=== PATIENT | male | born 1970 | race Caucasian/White ===

== ENCOUNTER 2023-05-12 12:05 | Inpatient (IN) | payer MEDICAID, SELFPAY ==
--- NOTE | ~2023-05-12 | US_ITS ---
Paracentesis INDICATIONS: Recurrent ascites After informed and written consent was obtained an official timeout was performed immediately prior to the procedure. PROCEDURE: Initial ultrasound surveillance of the abdomen demonstrated a large amount of fluid throughout the abdomen. There was a large pocket of fluid in the right upper quadrant. The skin was prepped and draped in usual fashion in this area. 1% Xylocaine was used for local anesthetic. A 5 Kinyarwanda Yueh catheter was placed into the fluid collection and 7.7 L of clear yellow fluid was drained. The needle was removed and manual pressure held. US/US paracentesis abd w/image IMPRESSION: Paracentesis with 7.7 L of fluid drained
--- NOTE | ~2023-05-12 | US_ITS ---
EXAMINATION: US SCROTUM CLINICAL INFORMATION: Testicular swelling. COMPARISON: None available. TECHNIQUE: A sonogram of the scrotum was performed assessing gottlieb-scale appearance and color Doppler flow. Spectral Doppler analysis of the arterial and venous flow were performed in the testes bilaterally. FINDINGS: Significant soft tissue thickening, swelling and edema limiting evaluation. The right testicle measures approximately 3.6 x 2.5 x 2.8 cm 13 mL. The left testicle measures approximately 2.9 x 2.1 x 2 cm, 6.4 mL. A few hyperechoic foci noted in the right testicle are in favored to represent microlithiasis. Flow to both testicles appears slightly decreased, although as before, this is most likely related with technique limitations in view of significant overlying soft tissue thickening. The epididymal heads were not well seen. There is a large right epididymal head cyst measuring approximately 7.2 x 13 x 7.4 cm with thickened davila and peripheral hyperemia. There is a left-sided inguinal hernia containing fluid. US/US scrotum doppler IMPRESSION: 1. Significant soft tissue thickening, swelling and edema. Recommend clinical correlation for cellulitis. 2. Flow to both testicles appears decreased, however this is likely related with limitations in technique in the setting of extensive soft tissue thickening. A short-term follow-up examination is recommended. 3. Large right epididymal head cyst with thickened davila and surrounding hyperemia, superimposed infection is not excluded. Close attention on follow-up is recommended. 4. Left inguinal hernia containing fluid.
--- NOTE | ~2023-05-12 | US_ITS ---
EXAMINATION: US ABDOMEN LIMITED CLINICAL INFORMATION: Portal hypertension. COMPARISON: CT abdomen 05/12/2023 TECHNIQUE: Real-time imaging of the right upper quadrant abdominal viscera. Color and spectral Doppler of the hepatic vessels was obtained. FINDINGS: PANCREAS: Obscured by bowel gas. LIVER: Nodular hepatic contour suggestive of cirrhosis. Increased hepatic echogenicity which can be seen in the setting of hepatic steatosis or underlying liver disease. No focal hepatic lesion. There is no intrahepatic biliary duct dilatation seen. GALLBLADDER: Gallbladder wall thickening which can be seen in the setting of underlying liver disease. Sludge is noted within the gallbladder. Negative sonographic Weldon's sign. The gallbladder is physiologically distended without evidence of stones, polyps, or pericholecystic fluid. COMMON BILE DUCT: Normal in caliber measuring 0.6 cm in diameter. RIGHT KIDNEY: Normal. No hydronephrosis. No renal calculi or focal parenchymal lesions. The kidney measures 12.1 cm in maximum dimension. FREE FLUID: Large ascites. VESSELS: There is nonocclusive thrombus in the main portal vein. There is hepatopedal flow in the portal vein. A recannulized periumbilical vein is noted. Hepatic arterial velocities are normal showing 69 cm/s, with some spectral broadening which may be within physiologic range of normal. The right and left hepatic arteries were not seen. Hepatic veins are patent with normal waveforms. The IVC is patent with normal waveforms. US/US duplex arterial venous comp IMPRESSION: 1. Cirrhotic morphology of the liver with large ascites. No discrete liver lesion. 2. Nonocclusive thrombus is noted in the main portal vein. There is hepatopedal flow in the portal vein. 3. Gallbladder wall thickening which can be seen in the setting of underlying liver disease. Sludge is noted within the gallbladder. No lithiasis or sonographic tenderness to suggest acute cholecystitis. 4. Sequelae of portal hypertension including large ascites and a recannulized periumbilical vein. 5. Pancreas was obscured by bowel gas. 6. Technically limited exam as above detailed with some vessels not identified.
--- NOTE | ~2023-05-12 | XR_ITS ---
EXAMINATION: XR CHEST CLINICAL INFORMATION: Shortness of breath. COMPARISON: Chest radiograph 09/01/2017. TECHNIQUE: Frontal view of the chest was obtained. FINDINGS: Stable prominence of the cardiomediastinal silhouette. Unchanged chronic asymmetric elevation of the right hemidiaphragm. Similar degree of mild diffuse nonspecific interstitial thickening. No new focal airspace opacity, pleural effusion or pneumothorax. No acute osseous findings. The visualized upper abdomen is within normal limits. XR/XR chest 1V IMPRESSION: 1. No acute cardiopulmonary findings. 2. Similar degree of mild nonspecific chronic interstitial thickening.
--- NOTE | ~2023-05-12 | US_ITS ---
EXAMINATION: US SCROTUM CLINICAL INFORMATION: Testicular swelling. COMPARISON: None available. TECHNIQUE: A sonogram of the scrotum was performed assessing gottlieb-scale appearance and color Doppler flow. Spectral Doppler analysis of the arterial and venous flow were performed in the testes bilaterally. FINDINGS: Significant soft tissue thickening, swelling and edema limiting evaluation. The right testicle measures approximately 3.6 x 2.5 x 2.8 cm 13 mL. The left testicle measures approximately 2.9 x 2.1 x 2 cm, 6.4 mL. A few hyperechoic foci noted in the right testicle are in favored to represent microlithiasis. Flow to both testicles appears slightly decreased, although as before, this is most likely related with technique limitations in view of significant overlying soft tissue thickening. The epididymal heads were not well seen. There is a large right epididymal head cyst measuring approximately 7.2 x 13 x 7.4 cm with thickened davila and peripheral hyperemia. There is a left-sided inguinal hernia containing fluid. US/US scrotum IMPRESSION: 1. Significant soft tissue thickening, swelling and edema. Recommend clinical correlation for cellulitis. 2. Flow to both testicles appears decreased, however this is likely related with limitations in technique in the setting of extensive soft tissue thickening. A short-term follow-up examination is recommended. 3. Large right epididymal head cyst with thickened davila and surrounding hyperemia, superimposed infection is not excluded. Close attention on follow-up is recommended. 4. Left inguinal hernia containing fluid.
--- NOTE | ~2023-05-12 | CT_ITS ---
EXAMINATION: CT abdomen pelvis wo IV con CLINICAL INFORMATION: Reason for Exam abdomen swelling COMPARISON: No prior CT available for comparison. TECHNIQUE: Multidetector volumetric imaging was performed from the superior aspect of the liver through the pubic symphysis a noncontrasted study. Sagittal and coronal reformatted images were obtained on the technologist's workstation. This CT examination was performed using dose optimization techniques as appropriate, variously including the following: *Automated exposure control *Adjustment of mA and/or kV according to patient size (this includes techniques or standardized protocols for targeted exams where dose is matched to indication/reason for exam; i.e. extremities or head) *Use of iterative reconstruction technique DLP: 2092 mGy-cm FINDINGS: LOWER THORAX: Included lung bases are clear. HEPATOBILIARY: Evaluation of the liver is limited due to lack of contrast, heterogeneous matrix of the liver with nodular surface, this is most commonly indicative of liver cirrhosis. GALLBLADDER: Gallbladder unremarkable. SPLEEN: Spleen is enlarged 20 x 11 cm. PANCREAS: No focal mass or ductal dilatation. STOMACH AND GASTROINTESTINAL TRACT: Stomach is grossly unremarkable. There is no bowel distention or thickening. Appendix not visualized obscured by abdominal fluid ascites. ADRENALS: No adrenal nodules. KIDNEYS/URETERS: No hydronephrosis, stones or solid mass lesions. URINARY BLADDER: Urinary bladder grossly unremarkable. PELVIC VISCERA: There are bilateral inguinal hernias, the left hernia containing loops of bowel. No evidence of obstruction. The right containing a portion of the cecum. PERITONEUM: Large of amount of free fluid in the abdomen ascites. No free air. LYMPH NODES: There are enlarged bilateral inguinal lymph nodes uncertain etiology. There are enlarged retroperitoneal and pelvic lymph nodes. VASCULAR:There are dilatation of the portal venous system along with varices around the splenic hilum, gastroesophageal junction and periumbilical, suggesting portal hypertension and portosystemic shunting. BONES, ABDOMINAL WALL AND SOFT TISSUES: There is a mesh anterior abdominal wall hernia repair. Diffuse subcutaneous edema anasarca. Fluid along the inguinal canal into the testicles hydroceles. CT/CT abdomen pelvis wo IV con IMPRESSION: * Large amount of abdominal ascites. * Bilateral inguinal hernias, both containing loops of bowel, no evidence of obstruction. * Heterogeneous liver with nodular surface, suggesting liver cirrhosis. * Splenomegaly. * Dilated portal venous system along with varices around the splenic hilum, gastroesophageal junction and periumbilical, suggesting portal hypertension and portosystemic shunting. * Diffuse subcutaneous edema, Anasarca. * Fluid in the inguinal canal and testicles hydroceles. * Retroperitoneal para-aortic pelvic and bilateral inguinal lymphadenopathy uncertain etiology. Please correlate clinically. Follow-up recommended.
--- NOTE | ~2023-05-12 | US_ITS ---
EXAMINATION: US ABDOMEN LIMITED CLINICAL INFORMATION: Portal hypertension. COMPARISON: CT abdomen 05/12/2023 TECHNIQUE: Real-time imaging of the right upper quadrant abdominal viscera. Color and spectral Doppler of the hepatic vessels was obtained. FINDINGS: PANCREAS: Obscured by bowel gas. LIVER: Nodular hepatic contour suggestive of cirrhosis. Increased hepatic echogenicity which can be seen in the setting of hepatic steatosis or underlying liver disease. No focal hepatic lesion. There is no intrahepatic biliary duct dilatation seen. GALLBLADDER: Gallbladder wall thickening which can be seen in the setting of underlying liver disease. Sludge is noted within the gallbladder. Negative sonographic Weldon's sign. The gallbladder is physiologically distended without evidence of stones, polyps, or pericholecystic fluid. COMMON BILE DUCT: Normal in caliber measuring 0.6 cm in diameter. RIGHT KIDNEY: Normal. No hydronephrosis. No renal calculi or focal parenchymal lesions. The kidney measures 12.1 cm in maximum dimension. FREE FLUID: Large ascites. VESSELS: There is nonocclusive thrombus in the main portal vein. There is hepatopedal flow in the portal vein. A recannulized periumbilical vein is noted. Hepatic arterial velocities are normal showing 69 cm/s, with some spectral broadening which may be within physiologic range of normal. The right and left hepatic arteries were not seen. Hepatic veins are patent with normal waveforms. The IVC is patent with normal waveforms. US/US abdomen limited IMPRESSION: 1. Cirrhotic morphology of the liver with large ascites. No discrete liver lesion. 2. Nonocclusive thrombus is noted in the main portal vein. There is hepatopedal flow in the portal vein. 3. Gallbladder wall thickening which can be seen in the setting of underlying liver disease. Sludge is noted within the gallbladder. No lithiasis or sonographic tenderness to suggest acute cholecystitis. 4. Sequelae of portal hypertension including large ascites and a recannulized periumbilical vein. 5. Pancreas was obscured by bowel gas. 6. Technically limited exam as above detailed with some vessels not identified.
[2023-05-12 12:11] VITALS: BP 143/60; PULSE 74; RESP 18; TEMP 36.7; O2SAT 100; BMI 40.3
--- NOTE | 2023-05-12 12:13 | ED.GENADULT ---
HPI - General Adult General Chief complaint: General Medical Stated complaint: multiple symptoms Time Seen by Provider: 05/12/23 17:30 Source: patient Mode of arrival: ambulatory Limitations: no limitations History of Present Illness HPI narrative: This is a 53-year-old male history of cirrhosis of the liver presenting to the emergency department shortness of breath with exertion, lower extremity swelling, scrotal swelling and pain this is all been going on for the past few weeks worsening acutely over the past few days. Patient reports his belly is getting big, the last time he had paracentesis was 2 months ago he had about 10 L drained this was done at [facility]. Patient also reports difficulties with urination. Patient denies fevers, chills, nausea, vomiting, abdominal pain, headache, vision changes, dizziness, weakness. Related Data Home Medications Medication Instructions Recorded Confirmed apixaban 5 mg tablet (Eliquis) 5 mg PO DAILY 05/12/23 05/12/23 dulaglutide 0.75 mg/0.5 mL 0.75 mg subcut TU 05/12/23 05/12/23 subcutaneous pen injector ([facility]) furosemide 40 mg tablet 80 mg PO DAILY 05/12/23 05/12/23 glipizide 5 mg tablet, extended 5 mg PO DAILY 05/12/23 05/12/23 release 24 hr nadolol 40 mg tablet 40 mg PO DAILY 05/12/23 05/12/23 spironolactone 50 mg tablet 150 mg PO DAILY 05/12/23 05/12/23 Allergies Allergy/AdvReac Type Severity Reaction Status Date / Time No Known Allergies Allergy Unverified 06/25/20 16:36 [No Known Allergies*] Review of Systems Review of Systems: Constitutional : No Weight loss, No Fever, No Chills, No Fatigue, No Malaise ENT/Mouth : No sore throat, No Rhinorrhea Eyes: No Eye Pain, No Swelling, No Redness Cardiovascular : No Chest Pain, No SOB, No Dyspnea on Exertion, No Orthopnea, + Edema, No Palpitations Respiratory : No Cough, No Sputum, No Wheezing Gastrointestinal : No Nausea, No Vomiting, No Diarrhea, No Constipation, No abdominal Pain, No Hematochezia, No Melena Genitourinary : + Dysuria, No Urinary Frequency, No Hematuria, Musculoskeletal : No joint pain, No Myalgias, No Joint Swelling Skin : No Skin Lesions, No rash Neuro : No Weakness, No Numbness, No Dizziness, No Headache Psych : No Anxiety/Panic, No Depression All other systems reviewed and are negative Yes all other systems are reviewed and are negative [facility] Past Medical History Attestation statement: The following information was validated with the patient. Source: old records reviewed and nursing notes reviewed Medical History Cirrhosis Diabetes mellitus Social History Social History Alcohol intake: never Patient Tobacco Use Status: Never used Tobacco Smoked in Last 30 Days: No Use of substances other than those prescribed or required for medical reasons: Yes Substance Use Type: Heroin Substance Use Frequency: Chronic Longstanding Last Used Substance: Weeks (ago) Advance Directives: No Advance Directives Information Provided: No Physical Exam ED Vital Signs: Vital Signs - 24 hr 05/12/23 12:11 05/12/23 17:42 05/12/23 19:05 Temperature 98.1 F Pulse Rate 74 68 75 Respiratory Rate 18 18 13 Blood Pressure 143/60 H 154/71 H 125/96 H Pulse Oximetry 100 96 100 Oxygen Delivery Method Room Air Room Air Room Air BMI result Body Mass Index 40.3 vss Appearance: Alert.? Oriented X3.? No acute distress.? Head: Normocephalic, atraumatic, no step-offs or deformities Eyes: Pupils equal, round and reactive to light.? CVS: Normal heart rate and rhythm.? Pulses normal.? Respiratory: No respiratory distress.? Breath sounds normal.? Abdomen: Abdomen tens, nontender, distended, positive fluid wave. Skin: Skin warm and dry.? Normal skin color.? Normal skin turgor.? Extremities: 2+ pitting edema to bilateral lower extremities, also edema noted test scrotal region, images and chart.? No calf ttp. 5/5 strength to bilateral upper and lower extremities Back: No midline tenderness, no C-spine tenderness, full range of motion, no CVA tenderness bilaterally Neuro: Oriented X 3.? No motor deficit.? No sensory deficit. CN 2-12 intact Course Course Course Narrative: This is a rapid medical exam: Additional HPI, ROS, PE not included below will be deferred to primary provider. Patient is a 53-year-old male with history of cirrhosis and ascites presenting to the emergency department with complaint of fluid retention, states the fluid is collecting in his scrotum causing significant swelling. Denies chest pain, reports shortness of breath with exertion related to the fluid. Denies fevers. Reporting 2.5 weeks of diarrhea, denies nausea/vomiting. Denies abdominal pain. Reports last paracentesis was at [facility] around 2 mos ago, had 10L removed. Plan: labs, UA Reevaluation(s) Reevaluation #1: Patient's CBC is noted to have a microcytic anemia a 0.4, 28.2, patient denies any rectal bleeding at this time. History is noted to have an elevated bilirubin 1.6, BNP 122 . Coags unremarkable chest x-ray no acute cardiopulmonary findings. Chronic interstitial thickening. Scrotal ultrasound showing significant soft tissue thickening and swelling and edema, concerns for possible cellulitis, low suspicion for cellulitis based off my exam, patient also seen by urology who didnt verbalize concern for cellulitis. Decrease flow to both testicles likely related to limitations in technique, large left epididymal head cysts with davila thickened and surrounding hyperemia. Time: 21:47 Reevaluation #2: CT of the abdomen pelvis with large amount of abdominal ascites, bilateral inguinal hernias, heterogeneous liver, splenomegaly, dilated portal venous system, diffuse subcutaneous edema and anasarca, fluid in the inguinal canal and testicle hydroceles. No abdominal tenderness on exam again I do not suspect SBP. Patient well-appearing. Plan at this time hospital admission as patient has ascites is causing him shortness of breath, and patient to be evaluated by Urology, patient will likely have ultrasound-guided paracentesis. Time: 21:49 Reevaluation #3: Patient was evaluated by Urology who states likely anasarca secondary to 3rd spacing from cirrhosis. Time: 21:51 Medications Administered Generic Name Dose Route Start Last Admin Trade Name Freq PRN Reason Stop Dose Admin Albumin Human 100 mls @ 100 mls/hr 05/12/23 23:45 05/13/23 01:12 Kedbumin 25 % IV 05/13/23 01:44 100 mls/hr Q1H MARYANN Administration Sodium Chloride 1,000 mls @ 125 mls/hr 05/12/23 23:57 05/13/23 00:16 Ns IVCONT 05/13/23 07:56 Not Given .Q8H ONE Sodium Chloride 3 ml 05/13/23 00:00 05/13/23 00:08 0.9 % Sodium Chloride Flush 3 Ml Syringe IVFLUSH 3 ml QSHIFT [facility] Administration Discontinued Medications Generic Name Dose Route Start Last Admin Trade Name Olamide PRN Reason Stop Dose Admin Fentanyl 25 mcg 05/12/23 18:26 05/12/23 20:19 Fentanyl Citrate/Pf 100 Mcg/2 Ml Vial IVPUSH 05/12/23 18:27 Not Given ONCE ONE Protocol Furosemide 20 mg 05/12/23 21:50 05/13/23 00:01 Furosemide 20 Mg/2 Ml Vial IVPUSH 05/12/23 21:51 20 mg ONCE ONE Administration Protocol Hydromorphone HCl 2 mg 05/13/23 00:05 05/13/23 00:11 Hydromorphone Hcl 2 Mg/Ml Vial IVPUSH 05/13/23 00:06 2 mg ONCE ONE Administration Protocol Morphine Sulfate 4 mg 05/12/23 23:56 05/13/23 00:12 Morphine Sulfate 4 Mg/Ml Cartridge IVPUSH 05/12/23 23:57 Not Given ONCE ONE Protocol Ondansetron HCl 4 mg 05/12/23 23:56 05/13/23 00:02 Ondansetron Hcl 4 Mg/2 Ml Vial IVPUSH 05/12/23 23:57 4 mg ONCE ONE Administration Procedures Paracentesis Time Out Performed: Yes Indication: Ascites Procedure: therapeutic paracentesis Location: RLQ Local Anesthetic: lidocaine 1% Amount of anesthesia used (mL): 5 Bedside Ultrasound Used: yes, Ascites confirmed and location marked Preparation: sterile prep and drape Amount of fluid obtained (mL): 7,000 Fluid: clear Size of Needle Used: 10 Post Procedure Exam: awake, alert Patient Tolerated Procedure: well and no complications Complications: none Medical Decision Making Medical Decision Making [facility] Narrative: 1756 53-year-old male presents with abdominal distension, painless, shortness of breath, lower extremity swelling and swelling to genital region worsening over the past few days Physical exam significant for ascites to abdomen, lower extremity edema 2+ to bilateral lower extremities, significant scrotal swelling. Concerns for cirrhosis with subsequent ascites. Unlikely SBP, no abdominal tenderness. No signs of arterial or venous occlusion. Unlikely testicular torsion,fourniers likely scrotal swelling secondary to 3rd spacing. I do not suspect pneumonia, PE on this patient. Unlikely ACS, pneumonia, CHF. Will rule out UTI versus cystitis. Will rule out electrolyte abnormalities Plan at this time labs, imaging, urine. Differential Diagnosis Differential Diagnoses: The differential diagnosis associated with the presentation includes Concerns for cirrhosis with subsequent ascites. Unlikely SBP, no abdominal tenderness. No signs of arterial or venous occlusion. Unlikely testicular torsion, likely scrotal swelling secondary to 3rd spacing. I do not suspect pneumonia, PE on this patient. Unlikely ACS, pneumonia, CHF. Will rule out UTI versus cystitis. Will rule out electrolyte abnormalities Admission/Observation Consideration of admission/observation: Escalation of care including admission/observation considered likely Consult Healthcare Provider Management of the patient was discussed with: Principal Administrative Clerk (urology- chauncey, will follow if needed) Lab Data MDM Lab Attestation statement: I reviewed the patient's lab results. 05/12/23 12:51 05/12/23 12:51 Labs: Lab Results 05/12/23 05/12/23 05/12/23 Range/Units 12:51 12:51 12:51 WBC 5.1 (4.8-10.8) X10*3/uL RBC 3.54 L (4.60-5.80) X10*6/uL Hgb 8.4 L (14.0-18.0) g/dl Hct 28.2 L (42.0-52.0) % MCV 79.7 L (80.0-98.0) fL MCH 23.7 L (27.0-33.0) pg MCHC 29.8 L (31.0-36.0) g/dl RDW 16.1 H (11.0-16.0) % Plt Count 106 L (160-400) X10*3/uL MPV 9.9 (9.4-12.4) fL Immature Gran % (Auto) 0.4 (0.0-0.4) % Neut % (Auto) 62.5 (45-73) % Lymph % (Auto) 20.6 (20-40) % [place] % (Auto) 10.1 (2-11) % Eos % (Auto) 5.4 H (0-4) % Baso % (Auto) 1.0 (0-2) % Lymph # (Auto) 1.1 L (1.2-4.9) X10*3/uL [place] # (Auto) 0.5 (0.1-1.2) X10*3/uL Eos # (Auto) 0.3 (0.0-0.4) X10*3/uL Baso # (Auto) 0.1 (0.0-0.2) X10*3/uL Abs Immat Gran (auto) 0.02 (0.00-0.03) X10*3/uL Absolute Neuts (auto) 3.2 (2.0-8.3) x10*3/uL Absolute Nucleated RBC 0.000 (0.0-0.012) X10*3/uL Nucleated RBC % (auto) 0.0 (0.0-0.2) /100WBC PT 15.8 H (11.1-13.3) SEC INR 1.3 H (0.9-1.1) Sodium 136 (135-145) mmol/L Potassium 3.8 (3.3-5.1) mmol/L Chloride 107 (96-108) mmol/L Carbon Dioxide 20 L (22-29) mmol/L Anion Gap 13 (12-20) BUN 11 (9-16) mg/dL Creatinine 0.88 (0.5-1.4) mg/dL Estim Creat Clear Calc 120.9 Estimated GFR > 60 Random Glucose 158 H (60-115) mg/dL Calcium 8.7 (8.4-10.2) mg/dL Total Bilirubin 1.6 H (0.0-1.0) mg/dL AST 27 (5-37) U/L ALT 19 (0-40) U/L Alkaline Phosphatase 82 (39-117) U/L B-Natriuretic Peptide (<100) pg/mL Total Protein 7.4 (6.5-8.0) g/dL Albumin 3.3 L (3.5-5.0) g/dL Lipase 10 (8-78) U/L 05/12/23 Range/Units 19:57 WBC (4.8-10.8) X10*3/uL RBC (4.60-5.80) X10*6/uL Hgb (14.0-18.0) g/dl Hct (42.0-52.0) % MCV (80.0-98.0) fL MCH (27.0-33.0) pg MCHC (31.0-36.0) g/dl RDW (11.0-16.0) % Plt Count (160-400) X10*3/uL MPV (9.4-12.4) fL Immature Gran % (Auto) (0.0-0.4) % Neut % (Auto) (45-73) % Lymph % (Auto) (20-40) % [place] % (Auto) (2-11) % Eos % (Auto) (0-4) % Baso % (Auto) (0-2) % Lymph # (Auto) (1.2-4.9) X10*3/uL [place] # (Auto) (0.1-1.2) X10*3/uL Eos # (Auto) (0.0-0.4) X10*3/uL Baso # (Auto) (0.0-0.2) X10*3/uL Abs Immat Gran (auto) (0.00-0.03) X10*3/uL Absolute Neuts (auto) (2.0-8.3) x10*3/uL Absolute Nucleated RBC (0.0-0.012) X10*3/uL Nucleated RBC % (auto) (0.0-0.2) /100WBC PT (11.1-13.3) SEC INR (0.9-1.1) Sodium (135-145) mmol/L Potassium (3.3-5.1) mmol/L Chloride (96-108) mmol/L Carbon Dioxide (22-29) mmol/L Anion Gap (12-20) BUN (9-16) mg/dL Creatinine (0.5-1.4) mg/dL Estim Creat Clear Calc Estimated GFR Random Glucose (60-115) mg/dL Calcium (8.4-10.2) mg/dL Total Bilirubin (0.0-1.0) mg/dL AST (5-37) U/L ALT (0-40) U/L Alkaline Phosphatase (39-117) U/L B-Natriuretic Peptide 122 H (<100) pg/mL Total Protein (6.5-8.0) g/dL Albumin (3.5-5.0) g/dL Lipase (8-78) U/L Independent Interpretation I performed an independent interpretation of an: CT Scan Radiology Impression Discussion of test interpretation with radiology: I have reviewed the radiologist's reading. Core Measures AMI core measures followed: Yes Measure exclusions: not indicated Critical Care Time Critical Care Time Critical Care Time: Yes Total Critical Care Time: 35 Attestation: I attest to this time spent taking care of the patient, obtaining history, physical, reviewing labs, imaging, speaking to my attending, speaking to specialist. Discharge Plan Discharge Clinical Impression: Anasarca, Ascites, Scrotal swelling Patient Disposition: Admitted As Inpatient
[2023-05-12 12:55] LABS: MANUAL DIFF FLAG NO
[2023-05-12 13:02] LABS: Basophils Absolute Auto 0.1 X10*3/uL (0.0-0.2); Eosinophils Absolute Auto 0.3 X10*3/uL (0.0-0.4); Eosinophils Percent Auto 5.4 % (0-4); Hematocrit 28.2 % (42.0-52.0); Hemoglobin 8.4 g/dl (14.0-18.0); Imm Gran Abs Auto 0.02 X10*3/uL (0.00-0.03); Imm Gran Pct Auto 0.4 % (0.0-0.4); Lymphocytes Absolute Auto 1.1 X10*3/uL (1.2-4.9); Lymphocytes Percent Auto 20.6 % (20-40); Mean Corpuscular HGB Conc 29.8 g/dl (31.0-36.0); Mean Corpuscular Hemoglobin 23.7 pg (27.0-33.0); Mean Corpuscular Volume 79.7 fL (80.0-98.0); Mean Platelet Volume 9.9 fL (9.4-12.4); Monocytes Absolute Auto 0.5 X10*3/uL (0.1-1.2); Monocytes Percent Auto 10.1 % (2-11); Neutrophils Absolute Auto 3.2 x10*3/uL (2.0-8.3); Neutrophils Percent Auto 62.5 % (45-73); Platelet Count 106 X10*3/uL (160-400); Red Blood Count 3.54 X10*6/uL (4.60-5.80); Red Cell Distribution Width 16.1 % (11.0-16.0); White Blood Count 5.1 X10*3/uL (4.8-10.8)
[2023-05-12 13:08] LABS: INTERNATIONAL NORM RATIO 1.3 (0.9-1.1); Prothrombin Time 15.8 SEC (11.1-13.3)
[2023-05-12 13:35] LABS: Alanine Aminotransferase 19 U/L (0-40); Albumin Level 3.3 g/dL (3.5-5.0); Alkaline Phosphatase 82 U/L (39-117); Anion Gap 13 (12-20); Aspartate Amino Transferase 27 U/L (5-37); Bilirubin Total 1.6 mg/dL (0.0-1.0); Blood Urea Nitrogen 11 mg/dL (9-16); Calcium 8.7 mg/dL (8.4-10.2); Carbon Dioxide 20 mmol/L (22-29); Chloride 107 mmol/L (96-108); Creatinine Clr Calc Pharmacy 120.9; Estimated Glomerular Filt Rate > 60; Glucose Random 158 mg/dL (60-115); Lipase 10 U/L (8-78); Potassium 3.8 mmol/L (3.3-5.1); Sodium 136 mmol/L (135-145); Total Protein 7.4 g/dL (6.5-8.0)
[2023-05-12 17:42] VITALS: BP 154/71; PULSE 68; RESP 18; O2SAT 96
--- NOTE | 2023-05-12 17:46 | PC.NURSE ---
pt a&ox3, vss, nsr on the teletypesetter monitor. pt coming in from home d/t extreme scrotom swelling in both testicles. pt rating 9/10 testicle pain. pt also has accompanying abdominal pain. hyperactive BS noted in all four quadrants. pt requesting medication for pain in testicles. will notify provider.
--- NOTE | 2023-05-12 17:59 | ECG_ITS ---
Test Reason : SHORTNESS OF BREATHE Blood Pressure : / mmHG Vent. Rate : 073 BPM Atrial Rate : 073 BPM P-R Int : 124 ms QRS Dur : 108 ms QT Int : 456 ms P-R-T Axes : 047 -04 028 degrees QTc Int : 502 ms Normal sinus rhythm Low voltage QRS cannot exclude old Septal infarct , age undetermined ; could be from lead placement Prolonged QT Abnormal ECG When compared with ECG of 01-SEP-2017 09:38, No significant change was found Referred By: Johnson Yang Electronically Signed By:KATE OLSEN
[2023-05-12 19:05] VITALS: BP 125/96; PULSE 75; RESP 13; O2SAT 100
--- NOTE | 2023-05-12 20:15 | PC.NURSE ---
Multiple RN's have attempted an IV with no success. Provider aware, unable to attempt ultrasound at this time. Stated pt will be medicated PO and the oncoming provider at 9 will attempt ultrasound.
[2023-05-12 20:41] LABS: B Type Natriuretic Peptide 122 pg/mL (<100)
--- NOTE | 2023-05-12 21:03 | PHA.MEDREC ---
Pharmacy Consult ? Medication Reconciliation Pharmacy has completed the medication reconciliation. Patient is not adherent to his medications. Patient taking all his BID medications on once a day. I asked patient multiple times how he takes his Eliqiuis, and he reports 1 tablet in the morning. Patient has not filled Eliquis since 12/26/22 for a 30 days supply. Patient reports Spironolactone 150 mg once a days instead of the prescripiton stating 3 tabs (50mg each) BID. Spironolactone last filled 02/27 for 30 day supply. Nohemi Dumont, PharmD
--- NOTE | 2023-05-12 21:53 | PM.IMHP ---
History of Present Illness Date of Service: 05/12/23 Chief Complaint: Abdomen swelling This is a 53-year-old male with pertinent history of cirrhosis due to hep C, ywa-fbdyubi-kzauwfntm diabetes mellitus, paroxysmal atrial fibrillation on anticoagulation who presents to the emergency department for evaluation of abdominal and scrotal swelling. Patient states that the swelling has been progressive over the last couple of weeks. Patient states he is compliant with his medications. Denies abdominal pain, fever, chills. States his last paracentesis was 2 months ago went about 10 L was drained at [facility]. He denies chest discomfort, palpitations, shortness of breath, changes in bowel habits. In the emergency department, significant abdomen and scrotal wall swelling seen Review of Systems Constitutional: Constitutional: Reports fatigue and Reports malaise Cardiovascular: Cardiovascular: Reports no additional cardiovascular complaints Respiratory: Respiratory: Reports no additional respiratory complaints Gastrointestinal: Gastrointestinal: Reports other Comments: swelling Genitourinary: Genitourinary: Reports scrotal swelling Musculoskeletal: Musculoskeletal: Reports no additional musculoskeletal complaints Endocrine: Endocrine: Reports fatigue COUNT INCLUDES THE [facility] Medical History Cirrhosis Diabetes mellitus Pertinent family history: No family history of early CAD Social History Alcohol intake: never Smoked in Last 30 Days: No Use of substances other than those prescribed or required for medical reasons: Yes Substance Use Type: Heroin Substance Use Frequency: Chronic Longstanding Last Used Substance: Weeks (ago) Advance Directives: No Advance Directives Information Provided: No Meds Allergies Allergy/AdvReac Type Severity Reaction Status Date / Time No Known Allergies Allergy Unverified 06/25/20 16:36 [No Known Allergies*] Active Medications: Current Medications Pharmacy Consult (Consult Rx Perform Med Rec) 1 each MISCELLANE ONCE PRN PRN Reason: Consult order Home Medications Medication Instructions Recorded Confirmed Last Taken Type apixaban 5 mg tablet (Eliquis) 5 mg PO DAILY 05/12/23 05/12/23 Unknown History dulaglutide 0.75 mg/0.5 mL 0.75 mg subcut TU 05/12/23 05/12/23 Unknown History [facility] furosemide 40 mg tablet 80 mg PO DAILY 05/12/23 05/12/23 Unknown History glipizide 5 mg tablet, extended 5 mg PO DAILY 05/12/23 05/12/23 Unknown History release 24 hr nadolol 40 mg tablet 40 mg PO DAILY 05/12/23 05/12/23 Unknown History spironolactone 50 mg tablet 150 mg PO DAILY 05/12/23 05/12/23 Unknown History Physical Exam Vital Signs and Narrative: Vital Signs: Last Vital Signs Temp 98.1 F 05/12/23 12:11 Pulse 75 05/12/23 19:05 Resp 13 05/12/23 19:05 BP 125/96 H 05/12/23 19:05 Pulse Ox 100 05/12/23 19:05 O2 Del Method Room Air 05/12/23 19:05 BMI result Body Mass Index 40.3 Middle-aged male lying in bed in mild distress Neck supple Regular rate and rhythm, S1-S2 heard Decreased breath sound at bases Abdomen with significant distension, no tenderness Patient is awake, alert and oriented to self, place, time and person ; no focal motor deficit Scrotal swelling seen bilaterally Psych: Normal mood Bilateral pedal edema Results Labs 05/12/23 12:51 05/12/23 12:51 Labs: Laboratory Results - last 24 hr 05/12/23 05/12/23 05/12/23 12:51 12:51 12:51 MCV 79.7 L MCH 23.7 L MCHC 29.8 L RDW 16.1 H Plt Count 106 L MPV 9.9 Immature Gran % (Auto) 0.4 Neut % (Auto) 62.5 Lymph % (Auto) 20.6 [place] % (Auto) 10.1 Eos % (Auto) 5.4 H Baso % (Auto) 1.0 Lymph # (Auto) 1.1 L [place] # (Auto) 0.5 Eos # (Auto) 0.3 Baso # (Auto) 0.1 Abs Immat Gran (auto) 0.02 Absolute Neuts (auto) 3.2 Absolute Nucleated RBC 0.000 Nucleated RBC % (auto) 0.0 PT 15.8 H INR 1.3 H Anion Gap 13 Estim Creat Clear Calc 120.9 Estimated GFR > 60 Random Glucose 158 H Calcium 8.7 Total Bilirubin 1.6 H AST 27 ALT 19 Alkaline Phosphatase 82 B-Natriuretic Peptide Total Protein 7.4 Albumin 3.3 L Lipase 10 05/12/23 19:57 MCV MCH MCHC RDW Plt Count MPV Immature Gran % (Auto) Neut % (Auto) Lymph % (Auto) [place] % (Auto) Eos % (Auto) Baso % (Auto) Lymph # (Auto) [place] # (Auto) Eos # (Auto) Baso # (Auto) Abs Immat Gran (auto) Absolute Neuts (auto) Absolute Nucleated RBC Nucleated RBC % (auto) PT INR Anion Gap Estim Creat Clear Calc Estimated GFR Random Glucose Calcium Total Bilirubin AST ALT Alkaline Phosphatase B-Natriuretic Peptide 122 H Total Protein Albumin Lipase Imaging Radiologist's Impressions: Impressions Chest X-Ray 05/12/23 18:07 IMPRESSION: 1. No acute cardiopulmonary findings. 2. Similar degree of mild nonspecific chronic interstitial thickening. Scrotum Ultrasound 05/12/23 18:26 IMPRESSION: 1. Significant soft tissue thickening, swelling and edema. Recommend clinical correlation for cellulitis. 2. Flow to both testicles appears decreased, however this is likely related with limitations in technique in the setting of extensive soft tissue thickening. A short-term follow-up examination is recommended. 3. Large right epididymal head cyst with thickened davila and surrounding hyperemia, superimposed infection is not excluded. Close attention on follow-up is recommended. 4. Left inguinal hernia containing fluid. Scrotum Ultrasound 05/12/23 18:26 IMPRESSION: 1. Significant soft tissue thickening, swelling and edema. Recommend clinical correlation for cellulitis. 2. Flow to both testicles appears decreased, however this is likely related with limitations in technique in the setting of extensive soft tissue thickening. A short-term follow-up examination is recommended. 3. Large right epididymal head cyst with thickened davila and surrounding hyperemia, superimposed infection is not excluded. Close attention on follow-up is recommended. 4. Left inguinal hernia containing fluid. Abdomen/Pelvis CT 05/12/23 20:41 IMPRESSION: * Large amount of abdominal ascites. * Bilateral inguinal hernias, both containing loops of bowel, no evidence of obstruction. * Heterogeneous liver with nodular surface, suggesting liver cirrhosis. * Splenomegaly. * Dilated portal venous system along with varices around the splenic hilum, gastroesophageal junction and periumbilical, suggesting portal hypertension and portosystemic shunting. * Diffuse subcutaneous edema, Anasarca. * Fluid in the inguinal canal and testicles hydroceles. * Retroperitoneal para-aortic pelvic and bilateral inguinal lymphadenopathy uncertain etiology. Please correlate clinically. Follow-up recommended. 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 #. Decompensated cirrhosis with massive ascites. Will admit patient and order IR guided paracentesis. Continue diuretics. On Nadolol for gastroesophageal variceal hemorrhage prophylaxis #. Bilateral inguinal hernia containing loops of bowel and testicle hydrocele. Consulting general surgery. Scrotal ultrasound pending #. Hiw-taekqwd-kyebixlkm diabetes mellitus. Initiating Accu-Cheks with sliding scale insulin #. Normocytic anemia. Hemoglobin above transfusion threshold #. Thrombocytopenia due to cirrhosis #. 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 Will hold for paracentesis and until surgical evaluation DVT prophylaxis: Hold eliquis until surgical evaluation Low-salt diet Admit as inpatient and will require two night minimum hospital stay for optimization of volume. Specialist consult pending Time Spent With Patient Time: Total time managing care of this patient today ____ minutes. Quality Stroke Does the patient have a stroke diagnosis?: No VTE Prior VTE?: No VTE Risk Level:: Medical - moderate - high VTE Device Contraindication: Treatment Not Indicated VTE Drug Contraindication: N/A - Med Ordered
--- NOTE | 2023-05-12 22:16 | PC.NURSE ---
Pt changed over in bed, brief was removed. Brief was saturated with urine, no evidence of a bowel movement present. TIFFANIE Mckinney at bedside, along with pt's daughter. Pt is resting in bed with intermittent coughing with secretions. Pt IV IV in left AC appeared to be leaking, IV was removed and a new IV [id number] into the right AC. IV is patent and secure with antibiotics are running. Pt waiting chest XRay at this time.
--- NOTE | 2023-05-12 22:35 | PC.NURSE ---
Lasix administration delayed due to pt not havign access. MD TIFFANIE aware, will attempt ultrasound.
[2023-05-12 23:23] VITALS: BP 140/73; PULSE 86; RESP 18; TEMP 36.9; O2SAT 97
[2023-05-13] MEDS: Furosemide 20 MG/2 ML VIAL IVPUSH (00:01)
[2023-05-13] MEDS: ondansetron HCL 4 MG/2 ML VIAL IVPUSH (00:02)
[2023-05-13] MEDS: 0.9 % Sodium Chloride Flush 3 ML SYRINGE IVFLUSH ×3 (00:08→20:56)
[2023-05-13] MEDS: HYDROmorphone HCl 2 MG/ML VIAL IVPUSH (00:11)
[2023-05-13] MEDS: Albumin Human 25 % 100 ML IV ×2 (00:16→01:12)
[2023-05-13 01:07] LABS: MN% 92.5 %; PMN% 7.5 %; WBC Peritoneal Fluid 0.087 X10*3/uL
[2023-05-13 01:08] LABS: RBC Peritoneal Fluid < 0.002 X10*6/uL
[2023-05-13 01:54] LABS: BF Shift QC OK YES
--- NOTE | 2023-05-13 02:35 | PM.EVENT ---
Event Note Date of Service: 05/13/23 Event Note: Paracentesis done in the ER by ER provider. 7 L ascitic fluid drained. Time Spent With Patient Time: Total time managing care of this patient today ____ minutes.
[2023-05-13 05:03] VITALS: BP 126/69; PULSE 74; RESP 14; TEMP 37.1; O2SAT 98
[2023-05-13 05:09] LABS: Lymphocyte Peritoneal Fl 54 %
[2023-05-13 05:10] LABS: Monocytes Peritoneal Fl 38 %; Neutrophils Peritoneal Fluid 8 %
--- NOTE | 2023-05-13 06:40 | PC.NURSE ---
Pt drained 6890mL of fluid from the abdomen overnight. Pt is moderately more comfortable, asleep at this time.
[2023-05-13 07:20] LABS: Glucose, Whole Blood 143 mg/dL (60-115)
[2023-05-13 07:27] VITALS: BP 140/58; PULSE 80; RESP 12; TEMP 36.9; O2SAT 98
[2023-05-13] MEDS: Spironolactone 25 MG TABLET 150 MG PO (07:29)
[2023-05-13] MEDS: Furosemide 40 MG TABLET 80 MG PO (07:30)
--- NOTE | 2023-05-13 07:33 | PC.NURSE ---
patient resting in bed, expresses frustration with pain and fear of wetting himself due to englarged scrotum. discussed with patient alternate ways to help him urinate and patient is in agreement. patient states he will ring when he has to use the bathroom.
--- NOTE | 2023-05-13 07:45 | PM.CNGS ---
History of Present Illness Consult details Consult date: 05/13/23 Requesting physician: Natasha Stapleton Narrative: 53-year-old male patient presenting to the emergency department with complaints of bilateral scrotal swelling and pain. 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 Feels his abdomen has filled fluid once again. He mainly complains of scrotal pain but denies fever, chills, nausea or vomiting. Surgical consultation was requested regarding repair of the bilateral inguinal hernias. Review of Systems Constitutional: Constitutional: Reports anorexia, Denies chills, Denies fever(s), Reports malaise, Denies night sweats and Reports weight gain Cardiovascular: Cardiovascular: Reports irregular heart rhythm and Denies dyspnea Respiratory: Respiratory: Denies dyspnea Gastrointestinal: Gastrointestinal: Reports abdominal pain, Denies heartburn, Denies diarrhea, Denies nausea and Denies vomiting Genitourinary: Genitourinary: Reports as per HPI Hematologic/Lymphatic: Hematologic/Lymphatic: Reports as per HPI PMFSH Past Medical History Medical History Cirrhosis Diabetes mellitus Social History Social History Alcohol intake: never Patient Tobacco Use Status: Never used Tobacco Smoked in Last 30 Days: No Use of substances other than those prescribed or required for medical reasons: Yes 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 Furosemide (Furosemide 40 Mg Tablet) 80 mg PO DAILY MARYANN; Protocol Last Admin: 05/13/23 07:30 Dose: 80 mg Glucose (Glucose Gel 15 Gm Gel..Gram.) 15 gm PO Q15M PRN; Protocol PRN Reason: per Hypoglycemia Standing Ord. Sodium Chloride (Ns) 1,000 mls @ 125 mls/hr IVCONT .Q8H ONE Stop: 05/13/23 07:56 Last Admin: 05/13/23 00:16 Dose: Not Given Insulin Human Lispro (Insulin Lispro 100 Unit/Ml 3 Ml Vial) 0 unit SUBCUT QIDACHS [facility]; Protocol Last Admin: 05/13/23 07:18 Dose: Not Given Melatonin (Melatonin 3 Mg Tablet) 6 mg PO BEDTIME PRN PRN Reason: Insomnia Nadolol (Nadolol 40 Mg Tablet) 40 mg PO DAILY [facility]; Protocol Last Admin: 05/13/23 07:31 Dose: 40 mg Ondansetron HCl (Ondansetron Hcl 4 Mg/2 Ml Vial) 4 mg IVPUSH Q8H PRN PRN Reason: Nausea and Vomiting Pharmacy Consult (Consult Rx Perform Med Rec) 1 each MISCELLANE ONCE PRN PRN Reason: Consult order Sodium Chloride (0.9 % Sodium Chloride Flush 3 Ml Syringe) 3 ml IVFLUSH QSHIFT [facility] Last Admin: 05/13/23 07:32 Dose: 3 ml Spironolactone (Spironolactone 25 Mg Tablet) 150 mg PO DAILY [facility]; Protocol Last Admin: 05/13/23 07:29 Dose: 150 mg Home Medications Medication Instructions Recorded Confirmed Last Taken Type apixaban 5 mg tablet (Eliquis) 5 mg PO DAILY 05/12/23 05/12/23 Unknown History dulaglutide 0.75 mg/0.5 mL 0.75 mg subcut 05/12/23 05/12/23 Unknown History subcutaneous pen injector (Trulicity) furosemide 40 mg tablet 80 mg PO DAILY 05/12/23 05/12/23 Unknown History glipizide 5 mg tablet, extended 5 mg PO DAILY 05/12/23 05/12/23 Unknown History release 24 hr nadolol 40 mg tablet 40 mg PO DAILY 05/12/23 05/12/23 Unknown History spironolactone 50 mg tablet 150 mg PO DAILY 05/12/23 05/12/23 Unknown History Physical Exam Vital Signs: Vital Signs: Last Vital Signs Temp 98.5 F 05/13/23 07:27 Pulse 80 08/05/23 07:27 Resp 12 05/13/23 07:27 BP 140/58 H 05/13/23 07:27 Pulse Ox 98 05/13/23 07:27 O2 Del Method Room Air 05/13/23 07:27 BMI result Body Mass Index 40.3 Const: General: ill appearing Nutritional Appearance: thin Orientation/consciousness: patient oriented x3 Limitations: no limitations HEENT: Head: Yes normocephalic and Yes atraumatic Ears: hearing grossly normal bilaterally Resp: Effort & Inspection: normal respiratory effort, no audible wheezes, no cough and no respiratory distress GI: Inspection: Yes normal to inspection and Yes distended Palpation (GI): Soft to palpation, Ascites present and No Rebound tenderness present Percussion: Yes Fluid wave present Auscultation: Hypoactive bowel sounds present : Scrotum: edematous, Hydrocele present and inguinal hernia Skin: General skin exam: no rashes or lesions noted Neuro: General: patient oriented x3 Extrem: General: Yes edema Results Labs 05/12/23 12:51 05/12/23 12:51 Labs: Abnormal lab results 05/12/23 05/12/23 05/12/23 Range/Units 12:51 12:51 12:51 RBC 3.54 L (4.60-5.80) X10*6/uL Hgb 8.4 L (14.0-18.0) g/dl Hct 28.2 L (42.0-52.0) % MCV 79.7 L (80.0-98.0) fL MCH 23.7 L (27.0-33.0) pg MCHC 29.8 L (31.0-36.0) g/dl RDW 16.1 H (11.0-16.0) % Plt Count 106 L (160-400) X10*3/uL Eos % (Auto) 5.4 H (0-4) % Lymph # (Auto) 1.1 L (1.2-4.9) X10*3/uL PT 15.8 H (11.1-13.3) SEC INR 1.3 H (0.9-1.1) Carbon Dioxide 20 L (22-29) mmol/L POC Glucose (60-115) mg/dL Random Glucose 158 H (60-115) mg/dL Total Bilirubin 1.6 H (0.0-1.0) mg/dL B-Natriuretic Peptide (<100) pg/mL Albumin 3.3 L (3.5-5.0) g/dL 05/12/23 05/13/23 Range/Units 19:57 07:16 RBC (4.60-5.80) X10*6/uL Hgb (14.0-18.0) g/dl Hct (42.0-52.0) % MCV (80.0-98.0) fL MCH (27.0-33.0) pg MCHC (31.0-36.0) g/dl RDW (11.0-16.0) % Plt Count (160-400) X10*3/uL Eos % (Auto) (0-4) % Lymph # (Auto) (1.2-4.9) X10*3/uL PT (11.1-13.3) SEC INR (0.9-1.1) Carbon Dioxide (22-29) mmol/L POC Glucose 143 H (60-115) mg/dL Random Glucose (60-115) mg/dL Total Bilirubin (0.0-1.0) mg/dL B-Natriuretic Peptide 122 H (<100) pg/mL Albumin (3.5-5.0) g/dL Short CBC 05/12/23 Range/Units 12:51 WBC 5.1 (4.8-10.8) X10*3/uL Hgb 8.4 L (14.0-18.0) g/dl Hct 28.2 L (42.0-52.0) % Plt Count 106 L (160-400) X10*3/uL BMP 05/12/23 12:51 Sodium 136 Potassium 3.8 Chloride 107 Carbon Dioxide 20 L BUN 11 Creatinine 0.88 Calcium 8.7 Liver Function 05/12/23 Range/Units 12:51 Total Bilirubin 1.6 H (0.0-1.0) mg/dL AST 27 (5-37) U/L ALT 19 (0-40) U/L Alkaline Phosphatase 82 (39-117) U/L Albumin 3.3 L (3.5-5.0) g/dL All other labs normal. Assessment and Plan (1) Cirrhosis: Status: Acute (2) Ascites: Status: Acute (3) Anasarca: Status: Acute (4) Scrotal swelling: Status: Acute Plan 53-year-old male patient with history of cirrhosis due to hepatitis-C found to have a large ascitic collection with resulting bilateral inguinal hernias. Review of CT abdomen and pelvis does reveal a large amount of ascites throughout the abdomen extending down into the. There is a few loops of bowel which are nonobstructed within the hernia sacs. Pain seems to be more related to the ascites filling his scrotum then the Bowel. Recommend paracentesis. If patient is still symptomatic after paracentesis, will discuss repair of the inguinal hernias. Time Spent With Patient Time: Total time managing care of this patient today ____ minutes. Procedures Date of Service Date of Service: 05/13/23
[2023-05-13 10:34] LABS: Albumin Peritoneal Fluid 0.6 GM/DL; Glucose Peritoneal Fluid 196 MG/DL; LDH Peritoneal Fluid 59 U/L; Total Protein Peritoneal Fluid 1.1 GM/DL
--- NOTE | 2023-05-13 10:54 | HO.PM.IMPN ---
Subjective Subjective Date of Service: 05/13/23 Review of Systems Follow up ascites denied pain severe scrotal swelling Physical Exam Vital Signs: Vital Signs: Last Vital Signs Temp 98.5 F 05/13/23 07:27 Pulse 80 05/13/23 07:27 Resp 12 05/13/23 07:27 BP 140/58 H 05/13/23 07:27 Pulse Ox 98 05/13/23 07:27 O2 Del Method Room Air 05/13/23 07:27 BMI result Body Mass Index 40.3 Appearing in no acute distress lung sounds are clear to auscultation heart regular rate rhythm, clear S1, S2 positive bowel sounds, abdomen is soft, nontender, large neuro patient is alert x3, no focal deficits severe scrotal edema Objective Data Active Medications Acetaminophen (Acetaminophen 325 Mg Tablet) 650 mg PO Q6H PRN PRN Reason: Pain, Mild (Pain Scale 1-3) Dextrose (Dextrose 50 % 25 Gm/50 Ml Syringe) 25 gm IVPUSH Q15M PRN; Protocol PRN Reason: per Hypoglycemia Standing Ord. Furosemide (Furosemide 40 Mg Tablet) 80 mg PO DAILY [facility]; Protocol Last Admin: 05/13/23 07:30 Dose: 80 mg Documented By: ANTONIO Glucose (Glucose Gel 15 Gm Gel..Gram.) 15 gm PO Q15M PRN; Protocol PRN Reason: per Hypoglycemia Standing Ord. Insulin Human Lispro (Insulin Lispro 100 Unit/Ml 3 Ml Vial) 0 unit SUBCUT QIDACHS [facility]; Protocol Last Admin: 05/13/23 07:18 Dose: Not Given Documented By: ANTONIO Non-Admin Reason: No Insulin Coverage Melatonin (Melatonin 3 Mg Tablet) 6 mg PO BEDTIME PRN PRN Reason: Insomnia Nadolol (Nadolol 40 Mg Tablet) 40 mg PO DAILY [facility]; Protocol Last Admin: 05/13/23 07:31 Dose: 40 mg Documented By: ANTONIO Ondansetron HCl (Ondansetron Hcl 4 Mg/2 Ml Vial) 4 mg IVPUSH Q8H PRN PRN Reason: Nausea and Vomiting Pharmacy Consult (Consult Rx Perform Med Rec) 1 each MISCELLANE ONCE PRN PRN Reason: Consult order Sodium Chloride (0.9 % Sodium Chloride Flush 3 Ml Syringe) [facility] Last Admin: 05/13/23 07:32 Dose: 3 ml Documented By: ANTONIO Spironolactone (Spironolactone 25 Mg Tablet) 150 mg PO DAILY [facility]; Protocol Last Admin: 05/13/23 07:29 Dose: 150 mg Documented By: ANTONIO Labs 05/12/23 12:51 05/12/23 12:51 Labs: Laboratory Results - last 24 hr 05/12/23 05/12/23 05/12/23 12:51 12:51 12:51 MCV 79.7 L MCH 23.7 L MCHC 29.8 L RDW 16.1 H Plt Count 106 L MPV 9.9 Immature Gran % (Auto) 0.4 Neut % (Auto) 62.5 Lymph % (Auto) 20.6 Hemphill % (Auto) 10.1 Eos % (Auto) 5.4 H Baso % (Auto) 1.0 Lymph # (Auto) 1.1 L [place]phill # (Auto) 0.5 Eos # (Auto) 0.3 Baso # (Auto) 0.1 Abs Immat Gran (auto) 0.02 Absolute Neuts (auto) 3.2 Absolute Nucleated RBC 0.000 Nucleated RBC % (auto) 0.0 PT 15.8 H INR 1.3 H Anion Gap 13 Estim Creat Clear Calc 120.9 Estimated GFR > 60 POC Glucose Random Glucose 158 H Calcium 8.7 Total Bilirubin 1.6 H AST 27 ALT 19 Alkaline Phosphatase 82 B-Natriuretic Peptide Total Protein 7.4 Albumin 3.3 L Lipase 10 Peritoneal WBC Peritoneal RBC Periton Neutrophils Periton Lymphocytes Peritoneal Monocytes Peritoneal Tot Protein Peritoneal Albumin Peritoneal LDH Peritoneal Glucose 05/12/23 05/13/23 05/13/23 19:57 00:57 00:57 MCV MCH MCHC RDW Plt Count MPV Immature Gran % (Auto) Neut % (Auto) Lymph % (Auto) Hemphill % (Auto) Eos % (Auto) Baso % (Auto) Lymph # (Auto) Hemphill # (Auto) Eos # (Auto) Baso # (Auto) Abs Immat Gran (auto) Absolute Neuts (auto) Absolute Nucleated RBC Nucleated RBC % (auto) PT INR Anion Gap Estim Creat Clear Calc Estimated GFR POC Glucose Random Glucose Calcium Total Bilirubin AST ALT Alkaline Phosphatase B-Natriuretic Peptide 122 H Total Protein Albumin Lipase Peritoneal WBC 0.087 Peritoneal RBC < 0.002 Periton Neutrophils 8 Periton Lymphocytes 54 Peritoneal Monocytes 38 Peritoneal Tot Protein 1.1 Peritoneal Albumin 0.6 Peritoneal LDH 59 Peritoneal Glucose 196 05/13/23 07:16 MCV MCH MCHC RDW Plt Count MPV Immature Gran % (Auto) Neut % (Auto) Lymph % (Auto) Hemphill % (Auto) Eos % (Auto) Baso % (Auto) Lymph # (Auto) Hemphill # (Auto) Eos # (Auto) Baso # (Auto) Abs Immat Gran (auto) Absolute Neuts (auto) Absolute Nucleated RBC Nucleated RBC % (auto) PT INR Anion Gap Estim Creat Clear Calc Estimated GFR POC Glucose 143 H Random Glucose Calcium Total Bilirubin AST ALT Alkaline Phosphatase B-Natriuretic Peptide Total Protein Albumin Lipase Peritoneal WBC Peritoneal RBC Periton Neutrophils Periton Lymphocytes Peritoneal Monocytes Peritoneal Tot Protein Peritoneal Albumin Peritoneal LDH Peritoneal Glucose Microbiology Microbiology Results: Microbiology 05/13/23 01:56 Gram Stain - Final Ascites Fluid Assessment and Plan (1) Cirrhosis: Status: Acute Plan This is a 53-year-old male with pertinent history of 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 Decompensated cirrhosis with massive ascites.? Status post paracentesis in the ED yielding 7 L ascites fluid Continue Lasix, nadolol GI consult pending Anasarca severe scrotal edema Scrotal ultrasound showing soft tissue swelling and edema with some decreased flow to both testes urology consult pending Supratherapeutic INR INR 1.3 Secondary to chronic alcohol use and cirrhosis Mbq-fayicku-otrpbnvmf diabetes mellitus.? ss, ada diet Normocytic anemia.? 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 Will hold for paracentesis and until surgical evaluation DVT prophylaxis: Hold eliquis until surgical evaluation attending Dr. Yu continue hospital stay for treatment of decompensated cirrhosis Time Spent With Patient Time: Total time managing care of this patient today ____ minutes. Quality Stroke Does the patient have a stroke diagnosis?: No VTE Prior VTE?: No VTE Risk Level:: Medical - moderate - high VTE Device Contraindication: Treatment Not Indicated VTE Drug Contraindication: N/A - Med Ordered
[2023-05-13 11:08] VITALS: BP 121/62; PULSE 63; RESP 18; TEMP 36.1; O2SAT 99
[2023-05-13 11:51] LABS: Glucose, Whole Blood 173 mg/dL (60-115)
[2023-05-13 15:50] VITALS: BP 140/66; PULSE 62; RESP 17; TEMP 36.4; O2SAT 96
[2023-05-13 16:22] LABS: Glucose, Whole Blood 117 mg/dL (60-115)
[2023-05-13 19:41] VITALS: BP 142/68; PULSE 67; RESP 17; TEMP 36.6; O2SAT 97
[2023-05-13 20:58] LABS: Glucose, Whole Blood 117 mg/dL (60-115)
--- NOTE | 2023-05-14 01:05 | PC.NURSE ---
pt upset yelling out when checked in bathroom, the call light was on. RN and another person checked patient in bathroom if his ok ? pt started yelling out his not a baby and doesn't need to checked by so many people after explaining about our policy and safety he was better . notified he needs pain med.will monitor
[2023-05-14 04:00] VITALS: BP 148/65; PULSE 69; RESP 20; TEMP 37.5; O2SAT 98
[2023-05-14 07:26] VITALS: BP 118/56; PULSE 60; RESP 18; TEMP 36.8; O2SAT 96
[2023-05-14 07:38] LABS: Glucose, Whole Blood 171 mg/dL (60-115)
[2023-05-14 07:46] VITALS: PULSE 65; O2SAT 100
[2023-05-14] MEDS: Spironolactone 25 MG TABLET 150 MG PO (07:50)
[2023-05-14] MEDS: 0.9 % Sodium Chloride Flush 3 ML SYRINGE IVFLUSH ×3 (07:51→20:34)
[2023-05-14] MEDS: glipiZIDE XL 5 MG TAB.ER.24 PO (07:55)
[2023-05-14 09:14] LABS: Hematocrit 26.3 % (42.0-52.0); Hemoglobin 7.6 g/dl (14.0-18.0); Mean Corpuscular HGB Conc 28.9 g/dl (31.0-36.0); Red Blood Count 3.17 X10*6/uL (4.60-5.80); Red Cell Distribution Width 16.5 % (11.0-16.0); White Blood Count 4.9 X10*3/uL (4.8-10.8)
[2023-05-14 09:20] LABS: Alanine Aminotransferase 14 U/L (0-40); Albumin Level 2.5 g/dL (3.5-5.0); Alkaline Phosphatase 57 U/L (39-117); Anion Gap 13 (12-20); Aspartate Amino Transferase 25 U/L (5-37); Bilirubin Total 1.1 mg/dL (0.0-1.0); Blood Urea Nitrogen 9 mg/dL (9-16); Carbon Dioxide 20 mmol/L (22-29); Chloride 109 mmol/L (96-108); Creatinine Clr Calc Pharmacy 109.7; Estimated Glomerular Filt Rate > 60; Glucose Random 218 mg/dL (60-115); Sodium 138 mmol/L (135-145); Total Protein 5.5 g/dL (6.5-8.0)
[2023-05-14 09:24] LABS: Platelet Count 89 X10*3/uL (160-400)
[2023-05-14 09:34] LABS: Calcium 7.9 mg/dL (8.4-10.2)
[2023-05-14] MEDS: HYDROmorphone HCl 0.5 MG/0.5 ML SYRINGE IVPUSH (09:34)
[2023-05-14 11:00] LABS: Glucose, Whole Blood 137 mg/dL (60-115)
--- NOTE | 2023-05-14 11:32 | HO.PM.IMPN ---
Subjective Subjective Date of Service: 05/14/23 Review of Systems Follow up ascites denied pain severe scrotal swelling Physical Exam Vital Signs: Vital Signs: Last Vital Signs Temp 98.3 F 05/14/23 07:26 Pulse 65 05/14/23 07:46 Resp 18 05/14/23 07:26 BP 118/56 L 05/14/23 07:26 Pulse Ox 100 05/14/23 07:46 O2 Del Method Room Air 05/14/23 07:46 BMI result Body Mass Index 40.3 Appearing in no acute distress lung sounds are clear to auscultation heart regular rate rhythm, clear S1, S2 positive bowel sounds, abdomen is soft, nontender neuro patient is alert x3, no focal deficits scrotal edema Objective Data Active Medications Acetaminophen (Acetaminophen 325 Mg Tablet) 650 mg PO Q6H PRN PRN Reason: Pain, Mild (Pain Scale 1-3) Dextrose (Dextrose 50 % 25 Gm/50 Ml Syringe) 25 gm IVPUSH Q15M PRN; Protocol PRN Reason: per Hypoglycemia Standing Ord. Furosemide (Furosemide 40 Mg Tablet) 80 mg PO DAILY@1600 [facility]; Protocol Glipizide (Glipizide Xl 5 Mg Tab.Er.24) 5 mg PO DAILY [facility] Last Admin: 05/14/23 07:55 Dose: 5 mg Documented By: ROSALIA Glucose (Glucose Gel 15 Gm Gel..Gram.) 15 gm PO Q15M PRN; Protocol PRN Reason: per Hypoglycemia Standing Ord. Insulin Human Lispro (Insulin Lispro 100 Unit/Ml 3 Ml Vial) 0 unit SUBCUT QIDACHS [facility]; Protocol Last Admin: 05/14/23 11:01 Dose: Not Given Documented By: ROSALIA Non-Admin Reason: No Insulin Coverage Melatonin (Melatonin 3 Mg Tablet) 6 mg PO BEDTIME PRN PRN Reason: Insomnia Nadolol (Nadolol 40 Mg Tablet) 40 mg PO DAILY [facility]; Protocol Last Admin: 05/14/23 07:51 Dose: 40 mg Documented By: ROSALIA Ondansetron HCl (Ondansetron Hcl 4 Mg/2 Ml Vial) 4 mg IVPUSH Q8H PRN PRN Reason: Nausea and Vomiting Pharmacy Consult (Consult Rx Perform Med Rec) 1 each MISCELLANE ONCE PRN PRN Reason: Consult order Sodium Chloride (0.9 % Sodium Chloride Flush 3 Ml Syringe) 3 ml IVFLUSH QSHIFT [facility] Last Admin: 05/14/23 07:51 Dose: 3 ml Documented By: ROSALIA Spironolactone (Spironolactone 25 Mg Tablet) 150 mg PO DAILY [facility]; Protocol Last Admin: 05/14/23 07:50 Dose: 150 mg Documented By: ROSALIA Labs 05/14/23 08:42 05/14/23 08:42 Labs: Laboratory Results - last 24 hr 05/13/23 05/13/23 05/13/23 11:46 16:17 20:53 MCV MCH MCHC RDW Plt Count MPV Absolute Nucleated RBC Nucleated RBC % (auto) Anion Gap Estim Creat Clear Calc Estimated GFR POC Glucose 173 H 117 H 117 H Random Glucose Calcium Total Bilirubin AST ALT Alkaline Phosphatase Total Protein Albumin 05/14/23 05/14/23 05/14/23 07:24 08:42 08:42 MCV 83.0 MCH 24.0 L MCHC 28.9 L RDW 16.5 H Plt Count 89 L MPV 11.0 Absolute Nucleated RBC 0.000 Nucleated RBC % (auto) 0.0 Anion Gap 13 Estim Creat Clear Calc 109.7 Estimated GFR > 60 POC Glucose 171 H Random Glucose 218 H Calcium 7.9 L D Total Bilirubin 1.1 H AST 25 ALT 14 Alkaline Phosphatase 57 Total Protein 5.5 L Albumin 2.5 L 05/14/23 10:56 MCV MCH MCHC RDW Plt Count MPV Absolute Nucleated RBC Nucleated RBC % (auto) Anion Gap Estim Creat Clear Calc Estimated GFR POC Glucose 137 H Random Glucose Calcium Total Bilirubin AST ALT Alkaline Phosphatase Total Protein Albumin Microbiology Microbiology Results: Microbiology 05/13/23 01:56 Gram Stain - Final Ascites Fluid Anaerobic Culture - Preliminary No growth to date. 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 Decompensated cirrhosis with massive ascites.? Status post paracentesis in the ED yielding 7 L ascites fluid Continue Lasix, nadolol GI consult pending Anasarca severe scrotal edema Scrotal ultrasound showing soft tissue swelling and edema with some decreased flow to both testes urology consult pending Supratherapeutic INR INR 1.3 Secondary to chronic alcohol use and cirrhosis Qcm-kxihwpm-okxrjdudc diabetes mellitus.? ss, ada diet Normocytic anemia.? 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 Will hold for possible paracentesis DVT prophylaxis: Hold eliquis until surgical evaluation attending Dr. Yu continue hospital stay for treatment of decompensated cirrhosis Time Spent With Patient Time: Total time managing care of this patient today ____ minutes. Quality Stroke Does the patient have a stroke diagnosis?: No VTE Prior VTE?: No VTE Risk Level:: Medical - moderate - high VTE Device Contraindication: Treatment Not Indicated VTE Drug Contraindication: N/A - Med Ordered
--- NOTE | 2023-05-14 12:27 | P.CNGI_ITS ---
History of Present Illness Data of Consult Service Date: 05/14/23 Requesting physician: Natasha Stapleton Primary Care Provider: Unknown Physician HPI Reason for consult: Decompensated cirrhosis This is a 53-year-old gentleman with known medical history of decompensated HCV liver cirrhosis, who presented to the hospital on Monday for worsening shortness of breath, and diffuse edema in the body including scrotal swelling and pain. Gastroenterology consult was requested for further evaluation and management. History was obtained from the pt who reports longstanding hx of HCV which was treated a few years ago, after he had developed cirrhosis. Recalls getting Epclusa + Ribavirin through [facility]. However, he then decompensated within a year of treatment and developed ascites. This was initially being managed by his GI and then later on PCP however he has been lost to follow up after his PCP retired. He also has not been exercising any dietary sodium restriction for the past few months. Was taking lasix 80 and spironolactone 150 at home. Reports getting a paracentesis at [facility] a few weeks ago where almost 10L were removed. Had another para here at [facility] in the ER and 7L were removed. Currently at the time of eval, continues to feel distended and uncomfortable jade due to scrotal and inguinal hernia edema. Review of Systems Review of Systems: Yes all other systems are reviewed and are negative PMFSH Past Medical History Medical History Cirrhosis Diabetes mellitus Social History Social History Household Members: Other Housing: House Do you presently have visiting nurse or other home services: No Alcohol intake: never Patient Tobacco Use Status: Never used Tobacco Substance Use Type: Heroin service: No Meds Allergies Allergy/AdvReac Type Severity Reaction Status Date / Time No Known Allergies Allergy Unverified 06/25/20 16:36 [No Known Allergies*] Active Medications: Current Medications Acetaminophen (Acetaminophen 325 Mg Tablet) 650 mg PO Q6H PRN PRN Reason: Pain, Mild (Pain Scale 1-3) Dextrose (Dextrose 50 % 25 Gm/50 Ml Syringe) 25 gm IVPUSH Q15M PRN; Protocol PRN Reason: per Hypoglycemia Standing Ord. Furosemide (Furosemide 40 Mg Tablet) 80 mg PO DAILY@1600 [facility]; Protocol Glipizide (Glipizide Xl 5 Mg Tab.Er.24) 5 mg PO DAILY [facility] Last Admin: 05/14/23 07:55 Dose: 5 mg Glucose (Glucose Gel 15 Gm Gel..Gram.) 15 gm PO Q15M PRN; Protocol PRN Reason: per Hypoglycemia Standing Ord. Insulin Human Lispro (Insulin Lispro 100 Unit/Ml 3 Ml Vial) 0 unit SUBCUT QIDACHS [facility]; Protocol Last Admin: 05/14/23 11:01 Dose: Not Given Melatonin (Melatonin 3 Mg Tablet) 6 mg PO BEDTIME PRN PRN Reason: Insomnia Nadolol (Nadolol 40 Mg Tablet) 40 mg PO DAILY [facility]; Protocol Last Admin: 05/14/23 07:51 Dose: 40 mg Ondansetron HCl (Ondansetron Hcl 4 Mg/2 Ml Vial) 4 mg IVPUSH Q8H PRN PRN Reason: Nausea and Vomiting Pharmacy Consult (Consult Rx Perform Med Rec) 1 each MISCELLANE ONCE PRN PRN Reason: Consult order Sodium Chloride (0.9 % Sodium Chloride Flush 3 Ml Syringe) 3 ml IVFLUSH QSHIFT [facility] Last Admin: 05/14/23 07:51 Dose: 3 ml Spironolactone (Spironolactone 25 Mg Tablet) 150 mg PO DAILY [facility]; Protocol Last Admin: 05/14/23 07:50 Dose: 150 mg Home Medications Medication Instructions Recorded Confirmed Last Taken Type apixaban 5 mg tablet (Eliquis) 5 mg PO DAILY 05/12/23 05/12/23 Unknown History dulaglutide 0.75 mg/0.5 mL 0.75 mg subcut TU 05/12/23 05/12/23 Unknown History subcutaneous pen injector (Trulicity) furosemide 40 mg tablet 80 mg PO DAILY 05/12/23 05/12/23 Unknown History glipizide 5 mg tablet, extended 5 mg PO DAILY 05/12/23 05/12/23 Unknown History release 24 hr nadolol 40 mg tablet 40 mg PO DAILY 05/12/23 05/12/23 Unknown History spironolactone 50 mg tablet 150 mg PO DAILY 05/12/23 05/12/23 Unknown History Physical Exam Vital Signs: Vital Signs: Last Vital Signs Temp 98.3 F 05/14/23 07:26 Pulse 65 05/14/23 07:46 Resp 18 05/14/23 07:26 BP 118/56 L 05/14/23 07:26 Pulse Ox 100 05/14/23 07:46 O2 Del Method Room Air 05/14/23 07:46 BMI result Body Mass Index 40.3 Gen Appear: NAD, well nourished HEENT: No scleral icterus, no bitemporal wasting noted Chest: Diminished breath sounds at bases CVS: Regular S1/S2 no murmurs Abd: soft, nontender, grossly distended with fluid thrill, subcutaneous edema in pannus Ext: SYLWIA bilaterally Neuro: A/Ox3, no asterixis Results Labs 05/14/23 08:42 05/14/23 08:42 Labs: Short CBC 05/14/23 Range/Units 08:42 WBC 4.9 (4.8-10.8) X10*3/uL Hgb 7.6 L (14.0-18.0) g/dl Hct 26.3 L (42.0-52.0) % Plt Count 89 L (160-400) X10*3/uL BMP 05/14/23 08:42 Sodium 138 Potassium 4.0 Chloride 109 H Carbon Dioxide 20 L BUN 9 Creatinine 0.97 Calcium 7.9 L D Liver Function 05/14/23 Range/Units 08:42 Total Bilirubin 1.1 H (0.0-1.0) mg/dL AST 25 (5-37) U/L ALT 14 (0-40) U/L Alkaline Phosphatase 57 (39-117) U/L Albumin 2.5 L (3.5-5.0) g/dL Microbiology Microbiology Results: Microbiology 05/13/23 01:56 Ascites Fluid Gram Stain - Final 05/13/23 01:56 Ascites Fluid Anaerobic Culture - Preliminary No growth to date. 05/13/23 01:56 Ascites Fluid Body Fluid Culture - Preliminary No growth after 1 day Assessment and Plan (1) Decompensated hepatic cirrhosis: Status: Acute (2) Ascites: Status: Acute (3) Anasarca: Status: Acute Plan Etiology of liver cirrhosis appears to be hx of HCV which has since been treated. Does not report any ongoing IVDU or etOH use. Meld-Na: 11 Continues to be significantly volume overloaded still and will need to cont IV diuresis. Recommendations: - Cont lasix IV 80mg - Increase PO Spironolactone to 200mg - Low salt diet - Elevate legs and scrotum (can placed a towel roll underneath) to mobilize fluid - If pt has a repeat large volume para, pls supplement with albumin 25% 8g/l removed - Daily weight, if has a drop of 2-3lbs per day (or has NET urine output of 2L) on this regimen for the next 2 days, can then switch to PO - Otherwise, will need further uptitration of dose to lasix 120 and spironolactone 300 - to NOT be uptitrated before 3 days - Massive anasarca and ascites likely 2/2 dietary indiscretion however pls get a n US Abd with doppler to r/o PV and HV thrombosis that could lead to increase portal HTN Thank you for allowing me to participate in his care. Please do not hesitate to reach out for any questions or concerns. Time Spent With Patient Time: Total time managing care of this patient today ____ minutes. Procedures Date of Service Date of Service: 05/14/23
--- NOTE | 2023-05-14 12:53 | MHC.CM.PN ---
pt lives with has own ride home had no previous servcies we like a vna if mdordered dc plan home ?vna
[2023-05-14 15:02] VITALS: BP 132/61; PULSE 60; RESP 18; TEMP 37; O2SAT 100
[2023-05-14] MEDS: Furosemide 100 MG/10 ML VIAL 80 MG IVPUSH (17:07)
[2023-05-14 17:09] LABS: Glucose, Whole Blood 95 mg/dL (60-115)
[2023-05-14 19:33] VITALS: BP 117/67; PULSE 60; RESP 18; TEMP 36.1; O2SAT 98
[2023-05-14] MEDS: Diphenoxylate/Atrop 2.5/0.025 TABLET 2 TAB PO (20:32)
[2023-05-14 20:33] LABS: Glucose, Whole Blood 158 mg/dL (60-115)
[2023-05-14 22:09] LABS: CDiff Gene PCR NEGATIVE (Negative)
[2023-05-15 04:00] VITALS: BP 111/62; PULSE 61; RESP 14; TEMP 36.4; O2SAT 98
[2023-05-15 07:10] LABS: Glucose, Whole Blood 117 mg/dL (60-115)
[2023-05-15 07:21] LABS: pH Peritoneal Fluid 7.63
[2023-05-15 07:39] VITALS: BP 112/56; PULSE 57; RESP 16; TEMP 36.4; O2SAT 96
[2023-05-15] MEDS: Diphenoxylate/Atrop 2.5/0.025 TABLET 2 TAB PO ×2 (08:07→16:31)
[2023-05-15] MEDS: glipiZIDE XL 5 MG TAB.ER.24 PO (08:08)
[2023-05-15] MEDS: 0.9 % Sodium Chloride Flush 3 ML SYRINGE IVFLUSH ×3 (08:08→20:20)
--- NOTE | 2023-05-15 08:28 | HO.PM.IMPN ---
Subjective Subjective Date of Service: 05/15/23 Review of Systems Follow up ascites denied pain severe scrotal swelling Physical Exam Vital Signs: Vital Signs: Last Vital Signs Temp 97.6 F 05/15/23 07:39 Pulse 57 05/15/23 07:39 Resp 16 05/15/23 07:39 BP 112/56 L 05/15/23 07:39 Pulse Ox 96 05/15/23 07:39 O2 Del Method Room Air 05/15/23 07:39 BMI result Body Mass Index 40.3 Appearing in no acute distress lung sounds are clear to auscultation heart regular rate rhythm, clear S1, S2 positive bowel sounds, abdomen is soft, nontender, large neuro patient is alert x3, no focal deficits scrotal anasarca Objective Data Active Medications Acetaminophen (Acetaminophen 325 Mg Tablet) 650 mg PO Q6H PRN PRN Reason: Pain, Mild (Pain Scale 1-3) Dextrose (Dextrose 50 % 25 Gm/50 Ml Syringe) 25 gm IVPUSH Q15M PRN; Protocol PRN Reason: per Hypoglycemia Standing Ord. Diphenoxylate HCl/Atropine (Diphenoxylate/Atrop 2.5/0.025 Tablet) 2 tab PO QID PRN PRN Reason: Diarrhea Last Admin: 05/15/23 08:07 Dose: 2 tab Documented By: MANFRED Furosemide (Furosemide 100 Mg/10 Ml Vial) 80 mg IVPUSH 1600 [facility]; Protocol Last Admin: 05/14/23 17:07 Dose: 80 mg Documented By: ROSALIA Glipizide (Glipizide Xl 5 Mg Tab.Er.24) 5 mg PO DAILY [facility] Last Admin: 05/15/23 08:08 Dose: 5 mg Documented By: MANFRED Glucose (Glucose Gel 15 Gm Gel..Gram.) 15 gm PO Q15M PRN; Protocol PRN Reason: per Hypoglycemia Standing Ord. Insulin Human Lispro (Insulin Lispro 100 Unit/Ml 3 Ml Vial) 0 unit SUBCUT QIDACHS [facility]; Protocol Last Admin: 05/15/23 08:08 Dose: Not Given Documented By: MANFRED Non-Admin Reason: No Insulin Coverage Melatonin (Melatonin 3 Mg Tablet) 6 mg PO BEDTIME PRN PRN Reason: Insomnia Nadolol (Nadolol 40 Mg Tablet) 40 mg PO DAILY [facility]; Protocol Last Admin: 05/14/23 07:51 Dose: 40 mg Documented By: ROSALIA Ondansetron HCl (Ondansetron Hcl 4 Mg/2 Ml Vial) 4 mg IVPUSH Q8H PRN PRN Reason: Nausea and Vomiting Pharmacy Consult (Consult Rx Perform Med Rec) 1 each MISCELLANE ONCE PRN PRN Reason: Consult order Sodium Chloride (0.9 % Sodium Chloride Flush 3 Ml Syringe) 3 ml IVFLUSH QSHIFT [facility] Last Admin: 05/15/23 08:08 Dose: 3 ml Documented By: MANFRED Spironolactone (Spironolactone 25 Mg Tablet) 200 mg PO DAILY [facility]; Protocol Labs 05/14/23 08:42 05/14/23 08:42 Labs: Laboratory Results - last 24 hr 05/13/23 05/14/23 05/14/23 01:57 08:42 08:42 MCV 83.0 MCH 24.0 L MCHC 28.9 L RDW 16.5 H Plt Count 89 L MPV 11.0 Absolute Nucleated RBC 0.000 Nucleated RBC % (auto) 0.0 Anion Gap 13 Estim Creat Clear Calc 109.7 Estimated GFR > 60 POC Glucose Random Glucose 218 H Calcium 7.9 L D Total Bilirubin 1.1 H AST 25 ALT 14 Alkaline Phosphatase 57 Total Protein 5.5 L Albumin 2.5 L Peritoneal pH 7.63 C. difficile Tox B Gene 05/14/23 05/14/23 05/14/23 10:56 17:05 19:38 MCV MCH MCHC RDW Plt Count MPV Absolute Nucleated RBC Nucleated RBC % (auto) Anion Gap Estim Creat Clear Calc Estimated GFR POC Glucose 137 H 95 Random Glucose Calcium Total Bilirubin AST ALT Alkaline Phosphatase Total Protein Albumin Peritoneal pH C. difficile Tox B Gene NEGATIVE 05/14/23 05/15/23 20:27 06:59 MCV MCH MCHC RDW Plt Count MPV Absolute Nucleated RBC Nucleated RBC % (auto) Anion Gap Estim Creat Clear Calc Estimated GFR POC Glucose 158 H 117 H Random Glucose Calcium Total Bilirubin AST ALT Alkaline Phosphatase Total Protein Albumin Peritoneal pH C. difficile Tox B Gene Microbiology Microbiology Results: Microbiology 05/13/23 01:56 Gram Stain - Final Ascites Fluid Anaerobic Culture - Preliminary No growth to date. 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 Decompensated cirrhosis with massive ascites.? Status post paracentesis in the ED 05/13/23, yielding 7 L ascites fluid Continue Lasix, nadolol Seen and evaluated by GI> continue Lasix IV 80 mg, increase spironolactone to 200 mg, check abdominal ultrasound with Doppler to rule out PV and HV thrombosis, ascites check also daily weights, 120kg (05/12/23) Anasarca severe scrotal edema, slowly improving Scrotal ultrasound showing soft tissue swelling and edema with some decreased flow to both testes urology consult still pending diarrhea cdiff negative stool studies pending lomotil as needed Supratherapeutic INR INR 1.3 Secondary to chronic alcohol use and cirrhosis Pjs-mtfftwq-ytytbnzgb diabetes mellitus.? ss, ada diet Normocytic anemia.? 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 Galarza continue hospital stay for treatment of decompensated cirrhosis requiring close monitoring and possible repeat paracentesis Time Spent With Patient Time: Total time managing care of this patient today ____ minutes. Quality Stroke Does the patient have a stroke diagnosis?: No VTE Prior VTE?: No VTE Risk Level:: Medical - moderate - high VTE Device Contraindication: Treatment Not Indicated VTE Drug Contraindication: N/A - Med Ordered
[2023-05-15] MEDS: HYDROmorphone HCl 0.5 MG/0.5 ML SYRINGE IVPUSH (09:15)
[2023-05-15 09:38] LABS: E. coli EPEC Detected (Not Detect.); Sapovirus Detected (Not Detect.)
[2023-05-15 09:39] LABS: Campylobacter Not Detected (Not Detect.); E. coli EAEC Not Detected (Not Detect.); E. coli ETEC Not Detected (Not Detect.); E. coli STEC Not Detected (Not Detect.); Plesiomonas shigelloides Not Detected (Not Detect.); Salmonella Not Detected (Not Detect.); Vibrio Not Detected (Not Detect.); Vibrio Cholerae Not Detected (Not Detect.); Yersinia enterocolitica Not Detected (Not Detect.)
--- NOTE | 2023-05-15 09:39 | P.CDIM_ITS ---
PROVIDER RESPONSE TEXT: To clarify, the appropriate diagnosis supported by the clinical indicators: Morbid Obesity QUERY TEXT: PHYSICIAN'S DOCUMENTATION REQUEST Date of Query: 05/15/2023 09:18 AM EDT Patient Name: Miki Dawkins Admit Date: 05/13/2023 Dear Natasha Stapleton, A review of the medical record indicates additional documentation may be needed. Please review below and update the documentation accordingly. Clinical Indicators: BMI: 40.3 120.202KG If possible, please provide an associated diagnosis related to the abnormal BMI, such as: Obesity Due to excess calories Obesity Due to other cause Specify the other cause Morbid Obesity Other please specify Other (explain)Clinically unable to determine (explain)Thank you, Lalitha Valencia, CCS, CDIS Use of terms such as suspected, likely, concern for, or probable (associated with a specific diagnosi s that is being evaluated, monitored, or treated as if it exists) are acceptable and can be coded in the inpatient se tting, when documented at the time of discharge. Please use your independent medical judgment in providing your response. THIS QUERY IS PART OF THE PERMANENT MEDICAL RECORD
[2023-05-15 09:40] LABS: Adenovirus F 40/41 Not Detected (Not Detect.); Astrovirus Not Detected (Not Detect.); Cryptosporidium Not Detected (Not Detect.); Cyclospora cayetanensis Not Detected (Not Detect.); Entamoeba histolytica Not Detected (Not Detect.); Giardia lamblia Not Detected (Not Detect.); Norovirus GI/GII Not Detected (Not Detect.); Rotavirus A Not Detected (Not Detect.); Shigella sp./EIEC Not Detected (Not Detect.)
[2023-05-15 11:31] LABS: Glucose, Whole Blood 158 mg/dL (60-115)
--- NOTE | 2023-05-15 12:15 | PM.GIPN ---
Subjective Subjective Date of Service: 05/15/23 Interval History: Seen and evaluated at bedside. Reports improvement in his appetite as well as abd distention. On lasix 80 IV and spironolactone 200. Labs pending from today. Weight and UOP not available for review. Critical Care Time (minutes): 0 Physical Exam Vital Signs: Vital Signs: Last Vital Signs Temp 97.6 F 05/15/23 07:39 Pulse 57 05/15/23 07:39 Resp 16 05/15/23 07:39 BP 112/56 L 05/15/23 07:39 Pulse Ox 96 05/15/23 07:39 O2 Del Method Room Air 05/15/23 07:39 BMI result Body Mass Index 40.3 Gen appear: NAD Abd: soft, nontender, distended with +fluid thrill Objective Data Labs 05/14/23 08:42 05/14/23 08:42 Labs: Laboratory Results - last 24 hr 05/13/23 05/14/23 05/14/23 01:57 17:05 19:38 POC Glucose 95 Peritoneal pH 7.63 Stl C. cayetanensis PCR Stool Rotavirus A PCR Stl Adenov F / PCR Stool Astrovirus (PCR) Stool Campylobacter PCR Stool Cryptosporidium PCR Stl Sh Tox Pr E STEC PCR Stool E coli O157 PCR Stl Enterotoxigenic E PCR Stool EPEC (PCR) Stool EAEC (PCR) Stl E. histolytica PCR Stool Giardia Lamblia PCR Stl P. shigelloides PCR Stool Salmonella PCR Stool Sapovirus (PCR) Stl Shigella/EIEC PCR St Y.enterocolitica PCR Stool Vibrio (PCR) Stl Vibrio cholerae PCR Stl Norovirus GI/GII PCR C. difficile Tox B Gene NEGATIVE 05/14/23 05/14/23 05/15/23 19:38 20:27 06:59 POC Glucose 158 H 117 H Peritoneal pH Stl C. cayetanensis PCR Not Detected Stool Rotavirus A PCR Not Detected Stl Adenov F 40/41 PCR Not Detected Stool Astrovirus (PCR) Not Detected Stool Campylobacter PCR Not Detected Stool Cryptosporidium PCR Not Detected Stl Sh Tox Pr E STEC PCR Not Detected Stool E coli O157 PCR Not applicable Stl Enterotoxigenic E PCR Not Detected Stool EPEC (PCR) Detected A Stool EAEC (PCR) Not Detected Stl E. histolytica PCR Not Detected Stool Giardia Lamblia PCR Not Detected Stl P. shigelloides PCR Not Detected Stool Salmonella PCR Not Detected Stool Sapovirus (PCR) Detected A Stl Shigella/EIEC PCR Not Detected St Y.enterocolitica PCR Not Detected Stool Vibrio (PCR) Not Detected Stl Vibrio cholerae PCR Not Detected Stl Norovirus GI/GII PCR Not Detected C. difficile Tox B Gene 05/15/23 11:28 POC Glucose 158 H Peritoneal pH Stl C. cayetanensis PCR Stool Rotavirus A PCR Stl Adenov F 40/41 PCR Stool Astrovirus (PCR) Stool Campylobacter PCR Stool Cryptosporidium PCR Stl Sh Tox Pr E STEC PCR Stool E coli O157 PCR Stl Enterotoxigenic E PCR Stool EPEC (PCR) Stool EAEC (PCR) Stl E. histolytica PCR Stool Giardia Lamblia PCR Stl P. shigelloides PCR Stool Salmonella PCR Stool Sapovirus (PCR) Stl Shigella/EIEC PCR St Y.enterocolitica PCR Stool Vibrio (PCR) Stl Vibrio cholerae PCR Stl Norovirus GI/GII PCR C. difficile Tox B Gene Microbiology Microbiology Results: Microbiology 05/13/23 01:56 Ascites Fluid Gram Stain - Final 05/13/23 01:56 Ascites Fluid Anaerobic Culture - Preliminary No growth to date. 05/13/23 01:56 Ascites Fluid Body Fluid Culture - Final No growth after 2 days Procedures Date of Service Date of Service: 05/15/23 Progress Note: A&P Assessment and plan (1) Decompensated hepatic cirrhosis: Status: Acute (2) Anasarca: Status: Acute (3) Ascites: Status: Acute Plan Etiology of liver cirrhosis appears to be hx of HCV which has since been treated. Does not report any ongoing IVDU or etOH use. Meld-Na: 11 Continues to be significantly volume overloaded still and will need to cont IV diuresis. Recommendations: - Cont lasix IV 80mg - Cont PO Spironolactone to 200mg - Low salt diet - Elevate legs and scrotum (can placed a towel roll underneath) to mobilize fluid - Please check daily weight or chart UOP to help with volume assessment - If has a drop of 2-3lbs per day (or has NET urine output of 2L) on this regimen today and tomorrow, can then switch to PO - Otherwise, will need further uptitration of dose to lasix 120 and spironolactone 300 - to NOT be uptitrated before 3 days - US Abd report pending Time Spent With Patient Time: Total time managing care of this patient today ____ minutes. Quality Stroke Does the patient have a stroke diagnosis?: No VTE Prior VTE?: No VTE Risk Level:: Medical - moderate - high VTE Device Contraindication: Treatment Not Indicated VTE Drug Contraindication: N/A - Med Ordered
[2023-05-15 13:47] VITALS: BMI 36.7
--- NOTE | 2023-05-15 13:49 | PC.NURSE ---
Late entry: 0840 Pt requested pain medication prior to paracentesis. Oxycodone ordered, attempted to give to pt but pt stated allergy to medication. Allergy added to list, Natasha Stapleton notified. Med dc'd and order placed for dilaudid. Dilaudid given with good effect. Pt refused to go for paracentesis. Natasha notified.
--- NOTE | 2023-05-15 15:05 | PC.NURSE ---
Pt ambulates self to BR but refusing to sit in chair
--- NOTE | 2023-05-15 15:52 | MHC.CM.PN ---
PT NOT YET MEDICALLY CLEARED TO DC DCP REMAINS HOME WITH NO SERVICES VIA FAMILY TRANSPORT
[2023-05-15 16:00] VITALS: BP 128/61; PULSE 56; RESP 16; TEMP 36.6; O2SAT 98
[2023-05-15] MEDS: Spironolactone 25 MG TABLET 200 MG PO (16:31)
[2023-05-15] MEDS: Furosemide 100 MG/10 ML VIAL 80 MG IVPUSH (16:33)
[2023-05-15 17:04] LABS: Glucose, Whole Blood 165 mg/dL (60-115)
[2023-05-15 20:46] VITALS: BP 128/63; PULSE 60; RESP 17; TEMP 36.3; O2SAT 100
[2023-05-15 21:34] LABS: Glucose, Whole Blood 175 mg/dL (60-115)
[2023-05-15 22:19] LABS: Anion Gap 14 (12-20); Blood Urea Nitrogen 8 mg/dL (9-16); Calcium 7.9 mg/dL (8.4-10.2); Carbon Dioxide 22 mmol/L (22-29); Chloride 108 mmol/L (96-108); Creatinine Clr Calc Pharmacy 119.2; Estimated Glomerular Filt Rate > 60; Glucose Random 165 mg/dL (60-115); Potassium 4.4 mmol/L (3.3-5.1); Sodium 140 mmol/L (135-145)
[2023-05-15 23:57] VITALS: BP 123/61; PULSE 58; RESP 16; TEMP 36.5; O2SAT 100
[2023-05-15 23:59] LABS: Hemoglobin 8.6 g/dl (14.0-18.0); Mean Corpuscular HGB Conc 30.7 g/dl (31.0-36.0); Mean Corpuscular Hemoglobin 24.2 pg (27.0-33.0); Mean Corpuscular Volume 78.7 fL (80.0-98.0); PLT CLUMP 1; Red Blood Count 3.56 X10*6/uL (4.60-5.80); Red Cell Distribution Width 16.3 % (11.0-16.0)
[2023-05-16] VITALS (7 sets, daily range): BP systolic 110–122; BP diastolic 53–64; PULSE 55–66; RESP 14–20; TEMP 36–37.1; O2SAT 97–100
[2023-05-16 00:01] LABS: White Blood Count 8.3 X10*3/uL (4.8-10.8)
[2023-05-16 06:28] LABS: MANUAL DIFF FLAG NO
[2023-05-16 06:33] LABS: Basophils Absolute Auto 0.1 X10*3/uL (0.0-0.2); Basophils Percent Auto 1.2 % (0-2); Eosinophils Absolute Auto 0.4 X10*3/uL (0.0-0.4); Eosinophils Percent Auto 7.3 % (0-4); Hematocrit 24.3 % (42.0-52.0); Hemoglobin 7.2 g/dl (14.0-18.0); Imm Gran Abs Auto 0.02 X10*3/uL (0.00-0.03); Imm Gran Pct Auto 0.4 % (0.0-0.4); Lymphocytes Absolute Auto 1.1 X10*3/uL (1.2-4.9); Lymphocytes Percent Auto 21.9 % (20-40); Mean Corpuscular HGB Conc 29.6 g/dl (31.0-36.0); Mean Corpuscular Hemoglobin 23.8 pg (27.0-33.0); Mean Corpuscular Volume 80.5 fL (80.0-98.0); Monocytes Absolute Auto 0.5 X10*3/uL (0.1-1.2); Neutrophils Absolute Auto 3.1 x10*3/uL (2.0-8.3); Neutrophils Percent Auto 59.2 % (45-73); Red Blood Count 3.02 X10*6/uL (4.60-5.80); Red Cell Distribution Width 16.3 % (11.0-16.0); White Blood Count 5.2 X10*3/uL (4.8-10.8)
[2023-05-16 06:38] LABS: INTERNATIONAL NORM RATIO 1.5 (0.9-1.1); Prothrombin Time 17.8 SEC (11.1-13.3)
[2023-05-16 06:46] LABS: Anion Gap 9 (12-20); Blood Urea Nitrogen 8 mg/dL (9-16); Calcium 7.9 mg/dL (8.4-10.2); Carbon Dioxide 28 mmol/L (22-29); Chloride 108 mmol/L (96-108); Creatinine Clr Calc Pharmacy 126.7; Estimated Glomerular Filt Rate > 60; Glucose Random 126 mg/dL (60-115); Potassium 3.9 mmol/L (3.3-5.1); Sodium 141 mmol/L (135-145)
[2023-05-16 06:55] LABS: Mean Platelet Volume 10.9 fL (9.4-12.4); Platelet Count 97 X10*3/uL (160-400)
[2023-05-16 07:06] LABS: Glucose, Whole Blood 122 mg/dL (60-115)
[2023-05-16] MEDS: 0.9 % Sodium Chloride Flush 3 ML SYRINGE IVFLUSH ×3 (08:04→21:37)
[2023-05-16] MEDS: glipiZIDE XL 5 MG TAB.ER.24 PO (09:34)
[2023-05-16] MEDS: Albumin Human 25 % 100 ML 133.33 ML IV ×2 (09:39→10:43)
[2023-05-16 09:43] LABS: Iron 16 mcg/dL (45-160); Percent Iron Saturation 8 % (15-50); Total Iron Binding Capacity 203 mcg/dL (228-428); Unsaturated Iron Binding 187 ug/dL
[2023-05-16 09:47] LABS: Ferritin 17 ng/mL (20-250)
[2023-05-16] MEDS: HYDROmorphone HCl 0.5 MG/0.5 ML SYRINGE IVPUSH (10:43)
[2023-05-16 11:00] LABS: Glucose, Whole Blood 127 mg/dL (60-115)
[2023-05-16] MEDS: Diphenoxylate/Atrop 2.5/0.025 TABLET 2 TAB PO (11:00)
--- NOTE | 2023-05-16 11:19 | PC.NURSE ---
Nadolol held for HR 55. Dr. Millard made aware and okayed holding med.
[2023-05-16] MEDS: Lidocaine HCl 1 % MPF 5 ML VIAL SUBCUT (14:51)
--- NOTE | 2023-05-16 15:41 | P.PNIM_ITS ---
Subjective Subjective Date of Service: 05/16/23 Interval History: Decompensated cirrhosis with massive ascites.? Review of Systems denies any chest pain or sob or abd pain going for paracentesis Physical Exam Vital Signs: Vital Signs: Last Vital Signs Temp 97.1 F 05/16/23 15:37 Pulse 65 05/16/23 15:37 Resp 20 05/16/23 15:37 BP 119/59 L 05/16/23 15:37 Pulse Ox 98 05/16/23 15:37 O2 Del Method Room Air 05/16/23 15:37 BMI result Body Mass Index 36.7 no acute distress ?lung sounds are clear to auscultation ?heart regular rate rhythm, clear? S1, S2 ?positive bowel sounds, abdomen is soft, nontender, large ?neuro patient is alert x3, no focal deficits ?scrotal anasarca Objective Data Active Medications Acetaminophen (Acetaminophen 325 Mg Tablet) 650 mg PO Q6H PRN PRN Reason: Pain, Mild (Pain Scale 1-3) Dextrose (Dextrose 50 % 25 Gm/50 Ml Syringe) 25 gm IVPUSH Q15M PRN; Protocol PRN Reason: per Hypoglycemia Standing Ord. Diphenoxylate HCl/Atropine (Diphenoxylate/Atrop 2.5/0.025 Tablet) 2 tab PO QID PRN PRN Reason: Diarrhea Last Admin: 05/16/23 11:00 Dose: 2 tab Documented By: PERRY Furosemide (Furosemide 100 Mg/10 Ml Vial) 60 mg IVPUSH 1600 MARYANN; Protocol Furosemide (Furosemide 40 Mg/4 Ml Vial) 40 mg IVPUSH DAILY [facility]; Protocol Glipizide (Glipizide Xl 5 Mg Tab.Er.24) 5 mg PO DAILY [facility] Last Admin: 05/16/23 09:34 Dose: 5 mg Documented By: PERRY Glucose (Glucose Gel 15 Gm Gel..Gram.) 15 gm PO Q15M PRN; Protocol PRN Reason: per Hypoglycemia Standing Ord. Insulin Human Lispro (Insulin Lispro 100 Unit/Ml 3 Ml Vial) 0 unit SUBCUT QIDACHS [facility]; Protocol Last Admin: 05/16/23 11:01 Dose: Not Given Documented By: PERRY Non-Admin Reason: No Insulin Coverage Melatonin (Melatonin 3 Mg Tablet) 6 mg PO BEDTIME PRN PRN Reason: Insomnia Nadolol (Nadolol 40 Mg Tablet) 40 mg PO DAILY [facility]; Protocol Last Admin: 05/16/23 09:56 Dose: Not Given Documented By: PERRY Non-Admin Reason: Decreased Heart Rate Ondansetron HCl (Ondansetron Hcl 4 Mg/2 Ml Vial) 4 mg IVPUSH Q8H PRN PRN Reason: Nausea and Vomiting Oxycodone HCl (Oxycodone Hcl Immed Release 5 Mg Tablet) 5 mg PO Q6H PRN PRN Reason: Pain, Mild (Pain Scale 1-3) Pharmacy Consult (Consult Rx Perform Med Rec) 1 each MISCELLANE ONCE PRN PRN Reason: Consult order Sodium Chloride (0.9 % Sodium Chloride Flush 3 Ml Syringe) 3 ml IVFLUSH QSHIFT [facility] Last Admin: 05/16/23 08:04 Dose: 3 ml Documented By: PERRY Spironolactone (Spironolactone 25 Mg Tablet) 200 mg PO DAILY@1600 MARYANN; Protocol Last Admin: 05/15/23 16:31 Dose: 200 mg Documented By: MANFRED Labs 05/16/23 06:24 05/16/23 06:24 Labs: Laboratory Results - last 24 hr 05/15/23 05/15/23 05/15/23 16:56 20:42 21:48 MCV MCH MCHC RDW Plt Count MPV Immature Gran % (Auto) Neut % (Auto) Lymph % (Auto) [place] % (Auto) Eos % (Auto) Baso % (Auto) Lymph # (Auto) [place] # (Auto) Eos # (Auto) Baso # (Auto) Abs Immat Gran (auto) Absolute Neuts (auto) Absolute Nucleated RBC Nucleated RBC % (auto) PT INR Anion Gap 14 Estim Creat Clear Calc 119.2 Estimated GFR > 60 POC Glucose 165 H 175 H Random Glucose 165 H Calcium 7.9 L Iron TIBC % Saturation Unsat Iron Binding Ferritin 05/15/23 05/16/23 05/16/23 23:52 06:24 06:24 MCV 78.7 L 80.5 MCH 24.2 L 23.8 L MCHC 30.7 L 29.6 L RDW 16.3 H 16.3 H Plt Count TNP 97 L MPV TNP 10.9 Immature Gran % (Auto) 0.4 Neut % (Auto) 59.2 Lymph % (Auto) 21.9 Carolina % (Auto) 10.0 Eos % (Auto) 7.3 H Baso % (Auto) 1.2 Lymph # (Auto) 1.1 L [place] # (Auto) 0.5 Eos # (Auto) 0.4 Baso # (Auto) 0.1 Abs Immat Gran (auto) 0.02 Absolute Neuts (auto) 3.1 Absolute Nucleated RBC 0.000 0.000 Nucleated RBC % (auto) 0.0 0.0 PT INR Anion Gap 9 L Estim Creat Clear Calc 126.7 Estimated GFR > 60 POC Glucose Random Glucose 126 H Calcium 7.9 L Iron 16 L TIBC 203 L % Saturation 8 L Unsat Iron Binding 187 Ferritin 17 L 05/16/23 05/16/23 05/16/23 06:24 06:54 10:56 MCV MCH MCHC RDW Plt Count MPV Immature Gran % (Auto) Neut % (Auto) Lymph % (Auto) [place] % (Auto) Eos % (Auto) Baso % (Auto) Lymph # (Auto) [place] # (Auto) Eos # (Auto) Baso # (Auto) Abs Immat Gran (auto) Absolute Neuts (auto) Absolute Nucleated RBC Nucleated RBC % (auto) PT 17.8 H INR 1.5 H Anion Gap Estim Creat Clear Calc Estimated GFR POC Glucose 122 H 127 H Random Glucose Calcium Iron TIBC % Saturation Unsat Iron Binding Ferritin Microbiology Microbiology Results: Microbiology 05/13/23 01:56 Gram Stain - Final Ascites Fluid Anaerobic Culture - Preliminary No growth to date. Body Fluid Culture - Final No growth after 2 days Assessment and Plan (1) Decompensated hepatic cirrhosis: Status: Acute (2) Anasarca: Status: Acute (3) Ascites: Status: Acute (4) Scrotal swelling: Status: Acute Plan 53-year-old male with pertinent history of cirrhosis due to hep C, fct-qnzrcup-qapjjnbor diabetes mellitus, paroxysmal atrial fibrillation on anticoagulation who presents to the emergency department for evaluation of abdominal and scrotal swelling. Decompensated cirrhosis with massive ascites.? Status post paracentesis in the ED 05/13/23, yielding 7 L ascites fluid Continue Lasix, nadolol Seen and evaluated by GI-adjusted Lasix IV 80 mg, increase spironolactone to 200 mg, check abdominal ultrasound with Doppler to rule out PV and HV thrombosis. s/p paracentesis moniter i/o closely daily weights, 120kg (05/12/23) Anasarca severe scrotal edema, slowly improving Scrotal ultrasound showing soft tissue swelling and edema with some decreased flow to both testes urology consult still pending diarrhea cdiff negative stool studies-Positive EPEC and sapovirus positive. lomotil as needed Supratherapeutic INR INR 1.3 Secondary to chronic alcohol use and cirrhosis Yll-rvrzcll-jctbgdkug diabetes mellitus.? ss, ada diet Normocytic anemia.? secondary to liver disease? 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 Quality Stroke Does the patient have a stroke diagnosis?: No VTE Prior VTE?: No VTE Risk Level:: Medical - moderate - high VTE Device Contraindication: Treatment Not Indicated VTE Drug Contraindication: N/A - Med Ordered
[2023-05-16 16:12] LABS: Glucose, Whole Blood 191 mg/dL (60-115)
[2023-05-16] MEDS: Furosemide 100 MG/10 ML VIAL 60 MG IVPUSH (17:00)
[2023-05-16] MEDS: Spironolactone 25 MG TABLET 200 MG PO (17:01)
[2023-05-16 21:03] LABS: Glucose, Whole Blood 133 mg/dL (60-115)
[2023-05-17] VITALS (8 sets, daily range): BP systolic 110–161; BP diastolic 57–67; PULSE 58–65; RESP 16–20; TEMP 36.2–36.8; O2SAT 96–100; BMI 35.0
[2023-05-17 07:11] LABS: Glucose, Whole Blood 120 mg/dL (60-115)
[2023-05-17] MEDS: glipiZIDE XL 5 MG TAB.ER.24 PO (08:27)
[2023-05-17] MEDS: 0.9 % Sodium Chloride Flush 3 ML SYRINGE IVFLUSH ×2 (08:28→20:35)
[2023-05-17] MEDS: Albumin Human 25 % 100 ML IV ×2 (08:28→09:26)
[2023-05-17] MEDS: Diphenoxylate/Atrop 2.5/0.025 TABLET 2 TAB PO ×2 (09:35→19:28)
[2023-05-17 10:36] LABS: Hematocrit 22.6 % (42.0-52.0)
[2023-05-17 10:49] LABS: Hemoglobin 6.7 g/dl (14.0-18.0)
[2023-05-17 11:01] LABS: Anion Gap 7 (12-20); Blood Urea Nitrogen 7 mg/dL (9-16); Calcium 8.2 mg/dL (8.4-10.2); Carbon Dioxide 29 mmol/L (22-29); Chloride 107 mmol/L (96-108); Creatinine Clr Calc Pharmacy 107.5; Estimated Glomerular Filt Rate > 60; Glucose Random 114 mg/dL (60-115); Potassium 3.3 mmol/L (3.3-5.1); Sodium 140 mmol/L (135-145)
[2023-05-17 11:13] LABS: Glucose, Whole Blood 121 mg/dL (60-115)
[2023-05-17] MEDS: Potassium Chloride Packet 20 MEQ PACKET PO (11:17)
--- NOTE | 2023-05-17 12:14 | MHC.CM.PN ---
PATIENT STILL REQUIRES DIURETICS. NO PLAN FOR DC TODAY
--- NOTE | 2023-05-17 12:39 | P.CNUR_ITS ---
History of Present Illness Consult details Consult date: 05/17/23 Narrative: 53-year-old male with pertinent history of cirrhosis due to hep C, pje-owywdce-ljfofedhe diabetes mellitus, on anticoagulation who has ascities, called to evaluate by urology due to scrotal swelling.? Patient states that the swelling has been progressive over the last couple of weeks.? Scrotal US 05/12/23: Significant soft tissue thickening, swelling and edema. Flow to both testicles appears decreased, however this is likely related with limitations in technique in the setting of extensive soft tissue thickening. Large right epididymal head cyst with thickened davila and surrounding hyperemia, superimposed infection is not excluded. Left inguinal hernia containing fluid. Clinical exam: Significant Scrotal edema, no cellulitis, minimal tenderness with palpation, Recommend Keep scrotum elevated on folded towel. Review of Systems Review of Systems: 10 point ROS negative other than stated in HPI [facility] Past Medical History Medical History Cirrhosis Diabetes mellitus Social History Social History Household Members: Other Housing: House Do you presently have visiting nurse or other home services: No Alcohol intake: never Patient Tobacco Use Status: Never used Tobacco Substance Use Type: Heroin service: No Meds Allergies Allergy/AdvReac Type Severity Reaction Status Date / Time oxycodone Allergy Itching Verified 05/15/23 08:49 Active Medications: Current Medications Acetaminophen (Acetaminophen 325 Mg Tablet) 650 mg PO Q6H PRN PRN Reason: Pain, Mild (Pain Scale 1-3) Dextrose (Dextrose 50 % 25 Gm/50 Ml Syringe) 25 gm IVPUSH Q15M PRN; Protocol PRN Reason: per Hypoglycemia Standing Ord. Diphenoxylate HCl/Atropine (Diphenoxylate/Atrop 2.5/0.025 Tablet) 2 tab PO QID PRN PRN Reason: Diarrhea Last Admin: 05/17/23 09:35 Dose: 2 tab Furosemide (Furosemide 100 Mg/10 Ml Vial) 60 mg IVPUSH 1600 MARYANN; Protocol Last Admin: 05/16/23 17:00 Dose: 60 mg Glipizide (Glipizide Xl 5 Mg Tab.Er.24) 5 mg PO DAILY MARYANN Last Admin: 05/17/23 08:27 Dose: 5 mg Glucose (Glucose Gel 15 Gm Gel..Gram.) 15 gm PO Q15M PRN; Protocol PRN Reason: per Hypoglycemia Standing Ord. Insulin Human Lispro (Insulin Lispro 100 Unit/Ml 3 Ml Vial) 0 unit SUBCUT QIDACHS [facility]; Protocol Last Admin: 05/17/23 11:37 Dose: Not Given Melatonin (Melatonin 3 Mg Tablet) 6 mg PO BEDTIME PRN PRN Reason: Insomnia Nadolol (Nadolol 40 Mg Tablet) 40 mg PO DAILY [facility]; Protocol Last Admin: 05/17/23 08:27 Dose: 40 mg Ondansetron HCl (Ondansetron Hcl 4 Mg/2 Ml Vial) 4 mg IVPUSH Q8H PRN PRN Reason: Nausea and Vomiting Oxycodone HCl (Oxycodone Hcl Immed Release 5 Mg Tablet) 5 mg PO Q6H PRN PRN Reason: Pain, Mild (Pain Scale 1-3) Pharmacy Consult (Consult Rx Perform Med Rec) 1 each MISCELLANE ONCE PRN PRN Reason: Consult order Sodium Chloride (0.9 % Sodium Chloride Flush 3 Ml Syringe) 3 ml IVFLUSH QSHIFT [facility] Last Admin: 05/17/23 08:28 Dose: 3 ml Spironolactone (Spironolactone 25 Mg Tablet) 200 mg PO DAILY@1600 [facility]; Protocol Last Admin: 05/16/23 17:01 Dose: 200 mg Home Medications Medication Instructions Recorded Confirmed Last Taken Type apixaban 5 mg tablet (Eliquis) 5 mg PO DAILY 05/12/23 05/12/23 Unknown History dulaglutide 0.75 mg/0.5 mL 0.75 mg subcut TU 05/12/23 05/12/23 Unknown History subcutaneous pen injector (Trulicity) furosemide 40 mg tablet 80 mg PO DAILY 05/12/23 05/12/23 Unknown History glipizide 5 mg tablet, extended 5 mg PO DAILY 05/12/23 05/12/23 Unknown History release 24 hr nadolol 40 mg tablet 40 mg PO DAILY 05/12/23 05/12/23 Unknown History spironolactone 50 mg tablet 150 mg PO DAILY 05/12/23 05/12/23 Unknown History Physical Exam Vital Signs: Vital Signs: Last Vital Signs Temp 98.0 F 05/17/23 12:00 Pulse 58 05/17/23 12:00 Resp 16 05/17/23 12:00 BP 126/62 05/17/23 12:00 Pulse Ox 100 05/17/23 12:00 O2 Del Method Room Air 05/17/23 12:00 BMI result Body Mass Index 35.0 Const: General: no acute distress and well developed Orientation/consciousness: patient oriented x3 HEENT: Head: Yes normocephalic and Yes atraumatic Eyes: Conjunctivae: conjunctivae normal Neck: Neck: Yes normal visual inspection Chest: Chest palpation & inspection: normal inspection of the chest Resp: Effort & Inspection: normal respiratory effort Cardio: Rate: regular rate GI: Inspection: Yes normal to inspection Palpation (GI): Soft to palpation : Other: Significant Scrotal edema, no cellulitis, minimal tenderness with palpation, penis buried Skin: General skin exam: no rashes or lesions noted Neuro: General: patient oriented x3 Extrem: General: Yes edema and No pedal edema Psych: Appearance: grossly normal Affect: normal affect Results Labs 05/17/23 10:21 05/17/23 10:21 Labs: Abnormal lab results 05/16/23 05/16/23 05/17/23 Range/Units 16:09 20:57 07:07 Hgb (14.0-18.0) g/dl Hct (42.0-52.0) % Anion Gap (12-20) BUN (9-16) mg/dL POC Glucose 191 H 133 H 120 H (60-115) mg/dL Calcium (8.4-10.2) mg/dL 05/17/23 05/17/23 05/17/23 Range/Units 10:21 10:21 11:07 Hgb 6.7 L* (14.0-18.0) g/dl Hct 22.6 L (42.0-52.0) % Anion Gap 7 L (12-20) BUN 7 L (9-16) mg/dL POC Glucose 121 H (60-115) mg/dL Calcium 8.2 L (8.4-10.2) mg/dL Short CBC 05/17/23 Range/Units 10:21 Hgb 6.7 L* (14.0-18.0) g/dl Hct 22.6 L (42.0-52.0) % BMP 05/17/23 10:21 Sodium 140 Potassium 3.3 Chloride 107 Carbon Dioxide 29 BUN 7 L Creatinine 0.92 Calcium 8.2 L Imaging Additional studies: Date of Service: 05/12/23 EXAMINATION: US SCROTUM CLINICAL INFORMATION: Testicular swelling. COMPARISON: None available. TECHNIQUE: A sonogram of the scrotum was performed assessing gottlieb-scale appearance and color Doppler flow. Spectral Doppler analysis of the arterial and venous flow were performed in the testes bilaterally. FINDINGS: Significant soft tissue thickening, swelling and edema limiting evaluation. The right testicle measures approximately 3.6 x 2.5 x 2.8 cm 13 mL. The left testicle measures approximately 2.9 x 2.1 x 2 cm, 6.4 mL. A few hyperechoic foci noted in the right testicle are in favored to represent microlithiasis. Flow to both testicles appears slightly decreased, although as before, this is most likely related with technique limitations in view of significant overlying soft tissue thickening. The epididymal heads were not well seen. There is a large right epididymal head cyst measuring approximately 7.2 x 13 x 7.4 cm with thickened davila and peripheral hyperemia. There is a left-sided inguinal hernia containing fluid. IMPRESSION: 1.? Significant soft tissue thickening, swelling and edema. Recommend clinical correlation for cellulitis. 2.? Flow to both testicles appears decreased, however this is likely related with limitations in technique in the setting of extensive soft tissue thickening. A short-term follow-up examination is recommended. 3.? Large right epididymal head cyst with thickened davila and surrounding hyperemia, superimposed infection is not excluded. Close attention on follow-up is recommended. 4.? Left inguinal hernia containing fluid. Assessment and Plan (1) Ascites: Status: Acute (2) Anasarca: Status: Acute (3) Scrotal edema: Status: Acute Plan Significant Scrotal edema, no cellulitis, minimal tenderness with palpation, Recommend Keep scrotum elevated on folded towel. Time Spent With Patient Time: Total time managing care of this patient today ____ minutes. Procedures Date of Service Date of Service: 05/18/23
--- NOTE | 2023-05-17 14:55 | HO.PM.IMPN ---
Subjective Subjective Date of Service: 05/17/23 Interval History: Decompensated cirrhosis with massive ascites.? Review of Systems denies any chest pain or sob or abd pain going for paracentesis Physical Exam Vital Signs: Vital Signs: Last Vital Signs Temp 98.0 F 05/17/23 12:00 Pulse 58 05/17/23 12:00 Resp 16 05/17/23 12:00 BP 126/62 05/17/23 12:00 Pulse Ox 100 05/17/23 12:00 O2 Del Method Room Air 05/17/23 12:00 BMI result Body Mass Index 35.0 no acute distress ?lung sounds are clear to auscultation ?heart regular rate rhythm, clear? S1, S2 ?positive bowel sounds, abdomen is soft, nontender, large ?neuro patient is alert x3, no focal deficits ?scrotal anasarca Objective Data Active Medications Acetaminophen (Acetaminophen 325 Mg Tablet) 650 mg PO Q6H PRN PRN Reason: Pain, Mild (Pain Scale 1-3) Dextrose (Dextrose 50 % 25 Gm/50 Ml Syringe) 25 gm IVPUSH Q15M PRN; Protocol PRN Reason: per Hypoglycemia Standing Ord. Diphenoxylate HCl/Atropine (Diphenoxylate/Atrop 2.5/0.025 Tablet) 2 tab PO QID PRN PRN Reason: Diarrhea Last Admin: 05/17/23 09:35 Dose: 2 tab Documented By: NEELAM Furosemide (Furosemide 100 Mg/10 Ml Vial) 60 mg IVPUSH 1600 [facility]; Protocol Last Admin: 05/16/23 17:00 Dose: 60 mg Documented By: GEETA Glipizide (Glipizide Xl 5 Mg Tab.Er.24) 5 mg PO DAILY [facility] Last Admin: 05/17/23 08:27 Dose: 5 mg Documented By: COTEMA Glucose (Glucose Gel 15 Gm Gel..Gram.) 15 gm PO Q15M PRN; Protocol PRN Reason: per Hypoglycemia Standing Ord. Insulin Human Lispro (Insulin Lispro 100 Unit/Ml 3 Ml Vial) 0 unit SUBCUT QIDACHS [facility]; Protocol Last Admin: 05/17/23 11:37 Dose: Not Given Documented By: NEELAM Non-Admin Reason: No Insulin Coverage Melatonin (Melatonin 3 Mg Tablet) 6 mg PO BEDTIME PRN PRN Reason: Insomnia Nadolol (Nadolol 40 Mg Tablet) 40 mg PO DAILY [facility]; Protocol Last Admin: 05/17/23 08:27 Dose: 40 mg Documented By: ALICIA Ondansetron HCl (Ondansetron Hcl 4 Mg/2 Ml Vial) 4 mg IVPUSH Q8H PRN PRN Reason: Nausea and Vomiting Oxycodone HCl (Oxycodone Hcl Immed Release 5 Mg Tablet) 5 mg PO Q6H PRN PRN Reason: Pain, Mild (Pain Scale 1-3) Pharmacy Consult (Consult Rx Perform Med Rec) 1 each MISCELLANE ONCE PRN PRN Reason: Consult order Sodium Chloride (0.9 % Sodium Chloride Flush 3 Ml Syringe) 3 ml IVFLUSH QSHIFT [facility] Last Admin: 05/17/23 08:28 Dose: 3 ml Documented By: ALICIA Spironolactone (Spironolactone 25 Mg Tablet) 200 mg PO DAILY@1600 [facility]; Protocol Last Admin: 05/16/23 17:01 Dose: 200 mg Documented By: JESICAQC Labs 05/17/23 10:21 05/17/23 10:21 Labs: Laboratory Results - last 24 hr 05/16/23 05/16/23 05/17/23 16:09 20:57 07:07 Anion Gap Estim Creat Clear Calc Estimated GFR POC Glucose 191 H 133 H 120 H Random Glucose Calcium Blood Type Antibody Screen Crossmatch 05/17/23 05/17/23 05/17/23 10:21 11:07 14:15 Anion Gap 7 L Estim Creat Clear Calc 107.5 Estimated GFR > 60 POC Glucose 121 H Random Glucose 114 Calcium 8.2 L Blood Type O Positive Antibody Screen NEGATIVE Crossmatch See Detail Microbiology Microbiology Results: Microbiology 05/13/23 01:56 Gram Stain - Final Ascites Fluid Anaerobic Culture - Preliminary No growth to date. Body Fluid Culture - Final No growth after 2 days Assessment and Plan (1) Scrotal edema: Status: Acute (2) Decompensated hepatic cirrhosis: Status: Acute Plan 53-year-old male with pertinent history of cirrhosis due to hep C, mgl-urkmafn-awwouoaed diabetes mellitus, paroxysmal atrial fibrillation on anticoagulation who presents to the emergency department for evaluation of abdominal and scrotal swelling. Decompensated cirrhosis with massive ascites.? Status post paracentesis in the ED 05/13/23, yielding 7 L ascites fluid Continue Lasix, nadolol Seen and evaluated by GI-adjusted? Lasix IV 80 mg, increase spironolactone to 200 mg, check abdominal ultrasound with Doppler to rule out PV and HV thrombosis. s/p paracentesis moniter i/o closely daily weights, 120kg (05/12/23) Anasarca severe scrotal edema, slowly improving Scrotal ultrasound showing soft tissue swelling and edema with some decreased flow to both testes urology consult still pending diarrhea cdiff negative stool studies-Positive EPEC and sapovirus positive. lomotil as needed Supratherapeutic INR INR 1.3 Secondary to chronic alcohol use and cirrhosis Fjd-hdzcnbr-ezvtbqpyd diabetes mellitus.? ss, ada diet Normocytic anemia.? h/h drop to 6.7 denies any gross bleedin iron.ironsats ,ferrtin tibc -low -component of iron def . ( he was in [facility] in february -that time refused iv iron) secondary to liver disease? added type and screen and transfusion 1prbc. Thrombocytopenia secondary? 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 Quality Stroke Does the patient have a stroke diagnosis?: No VTE Prior VTE?: No VTE Risk Level:: Medical - moderate - high VTE Device Contraindication: Treatment Not Indicated VTE Drug Contraindication: N/A - Med Ordered
[2023-05-17 16:16] LABS: Glucose, Whole Blood 151 mg/dL (60-115)
[2023-05-17] MEDS: Furosemide 100 MG/10 ML VIAL 60 MG IVPUSH (18:28)
[2023-05-17] MEDS: Spironolactone 25 MG TABLET 200 MG PO (18:29)
[2023-05-17] MEDS: ondansetron HCL 4 MG/2 ML VIAL IVPUSH (19:20)
[2023-05-17] MEDS: HYDROmorphone HCl 0.5 MG/0.5 ML SYRINGE IVPUSH (19:51)
[2023-05-17 20:42] LABS: Glucose, Whole Blood 139 mg/dL (60-115)
[2023-05-18 03:32] VITALS: BP 110/57; PULSE 60; RESP 18; TEMP 36.6; O2SAT 98
[2023-05-18] MEDS: Diphenoxylate/Atrop 2.5/0.025 TABLET 2 TAB PO ×2 (04:26→11:20)
[2023-05-18 06:00] VITALS: BMI 34.0
[2023-05-18 07:07] VITALS: BP 111/59; PULSE 54; RESP 16; TEMP 36.2; O2SAT 95
[2023-05-18 07:19] LABS: Glucose, Whole Blood 102 mg/dL (60-115)
[2023-05-18 08:30] LABS: Hematocrit 26.6 % (42.0-52.0); Hemoglobin 7.9 g/dl (14.0-18.0)
[2023-05-18] MEDS: glipiZIDE XL 5 MG TAB.ER.24 PO (08:57)
[2023-05-18] MEDS: 0.9 % Sodium Chloride Flush 3 ML SYRINGE IVFLUSH (09:02)
--- NOTE | 2023-05-18 09:56 | MHC.CM.PN ---
PT WILL DC HOME TODAY WITH NO SERVICES TO TRANSPORT
--- NOTE | 2023-05-18 10:57 | P.DS_ITS ---
DS: Providers Provider Date of Service: 05/18/23 Date of admission: 05/12/23 21:51 Date of discharge: 05/18/23 Primary care physician: Chiquita Mendoza MD Consults: 05/12/23 22:02 Consult to General Surgery Routine Consulting Provider: [facility] General Surgeons Reason for consultation: Bilateral inguinal hernia and hydrocele 05/13/23 10:59 Consult to Urology Routine Consulting Provider: Jayjay Davalos Reason for consultation: anasarca, severe scrotal edema 05/13/23 15:22 Consult to Gastroenterology Routine Consulting Provider: Nichole Reynolds Reason for consultation: liver cirrhosis Has provider been notified: No Attending physician on discharge: Jorge Alberto Millard Discharging clinician: Jorge Alberto Millard DS: Diagnosis Discharge Diagnosis (1) Ascites: Status: Acute (2) Anasarca: Status: Acute (3) Scrotal edema: Status: Acute DS: Summary Hospital Course Hospital Course: ?53-year-old male with pertinent history of cirrhosis due to hep C, wmm-iyqcztk-ddacsdtao diabetes mellitus, paroxysmal atrial fibrillation on anticoagulation who presents to the emergency department for evaluation of abdominal and scrotal swelling.? Patient states that the swelling has been progressive over the last couple of weeks.? Patient states he is compliant with his medications.? Denies abdominal pain, fever, chills.? States his last paracentesis was 2 months ago went about 10 L was drained at [facility].? He denies chest discomfort, palpitations, shortness of breath, changes in bowel habits. In the emergency department, significant abdomen and scrotal wall swelling seen. Hospital course: Patient was admitted for anasarca secondary to Decompensated liver cirrhosis: Started on IV diuretics and received paracentesis 2 times during this admission, diuresed well, leg swelling and scrotal swelling is significantly improved. Seen by GI and urology: Patient Lasix adjusted to 100 mg daily upon discharge as well as spironolactone adjusted to 200 mg daily upon discharge. Anasarca improved significantly with IV diuresis and paracentesis. In addition seen by Urology for sacral edema which is also improved significantly-currently recommended to continue diuretics at home and scrotal elevation. Patient Eliquis is on hold: Considering severe anemia requiring transfusion, need to repeat CBC and start Eliquis afterwards as per GI clearance. In addition patient abdominal ultrasound during this admission shows Nonocclusive thrombus is noted in the main portal vein. There is hepatopedal flow in the portal vein. Normocytic anemia: possible combination of aocd (liver dis) and iron studies - showed component of possible iron deficiency, started on p.o. iron, patient wants to defer further testing outpatient , follow-up with GI. He was offered for IV iron in [facility] (in february/2023): He refused. Received 1 PRBC: Hemoglobin levels in 7.9 range. Monitor CBC and further workup outpatient with GI. Diarrhea: Somewhat improving, stool studies positive for EPEC (pcr) and sapovirus, C diff negative,otherwise denies any abdominal pain, tolerating diet, no fever or leukocytosis. Continue symptomatic management with Imodium at home. plan: For liver diseases/anasarca: Improved significantly, Lasix adjusted to 100 mg daily upon discharge as well as spironolactone adjusted to 200 mg daily upon discharge. Normocytic anemia: Possible combination of a OCD and iron deficiency: Started iron, monitor CBC and further GI workup out patiently, Eliquis is on hold for until GI clearance. Due to above mentioned issues: Patient is to monitor CBC, renal function and electrolytes. Further anemia workup and liver disease management outpatient with GI. Above management discussed with the patient in detail length he understand and in agreement with the above plan, time spent 50 minutes and 50% time spent on counseling. Time Spent with Patient Time attestation: Total time managing care of this patient today ____ minutes. Discharge coordination time: Greater than 30 minutes Quality: Safe Use of Opioids Does Pt have an Active Cancer Diagnosis on the Problem List?: No Quality: Stroke Does the patient have a stroke diagnosis?: No Physical Exam Vital Signs: Vital Signs: Last Vital Signs Temp 97.2 F 05/18/23 07:07 Pulse 54 05/18/23 07:07 Resp 16 05/18/23 07:07 BP 111/59 L 05/18/23 07:07 Pulse Ox 95 05/18/23 07:07 O2 Del Method Room Air 05/18/23 07:07 BMI result Body Mass Index 34.0 Appearance: Alert.? Oriented X3.? not in distress.? Eyes: Pupils equal, round and reactive to light.? Sclera nonicteric.? ENT: Pharynx normal.? Moist mucous membranes. cvs: rrr, [id number]. res: clear to auscultation ,no rhonchii or wheezing abd: no rebound or guarding ,nt, bs present. no ascitis ,leg swelling improved significantly : scrotal swelling also improved ,patient is aware to use scrotal elevation ext pulses present , no cyanosis . neuro: axo3 , nonfocal. DS: Data Data Completed and Pending Pending studies at discharge: Pending at discharge 05/15/23 14:20 Cytology [PTH] Routine 05/16/23 14:45 Cytology [PTH] Routine Labs on day of discharge: Laboratory Results - last 24 hr 05/17/23 05/17/23 05/17/23 10:21 10:21 11:07 Hgb Hct Smear Path Review SEE NOTE Sodium 140 Potassium 3.3 Chloride 107 Carbon Dioxide 29 Anion Gap 7 L BUN 7 L Creatinine 0.92 Estim Creat Clear Calc 107.5 Estimated GFR > 60 POC Glucose 121 H Random Glucose 114 Calcium 8.2 L Blood Type Antibody Screen Crossmatch 05/17/23 05/17/23 05/17/23 14:15 16:06 20:37 Hgb Hct Smear Path Review Sodium Potassium Chloride Carbon Dioxide Anion Gap BUN Creatinine Estim Creat Clear Calc Estimated GFR POC Glucose 151 H 139 H Random Glucose Calcium Blood Type O Positive Antibody Screen NEGATIVE Crossmatch See Detail 05/18/23 05/18/23 07:14 08:20 Hgb 7.9 L Hct 26.6 L Smear Path Review Sodium Potassium Chloride Carbon Dioxide Anion Gap BUN Creatinine Estim Creat Clear Calc Estimated GFR POC Glucose 102 Random Glucose Calcium Blood Type Antibody Screen Crossmatch Imaging Chest x-ray: Radiologist's impression: ITS Impressions Chest X-Ray 05/12/23 18:07 IMPRESSION: 1. No acute cardiopulmonary findings. 2. Similar degree of mild nonspecific chronic interstitial thickening. Scrotum Ultrasound 05/12/23 18:26 IMPRESSION: 1. Significant soft tissue thickening, swelling and edema. Recommend clinical correlation for cellulitis. 2. Flow to both testicles appears decreased, however this is likely related with limitations in technique in the setting of extensive soft tissue thickening. A short-term follow-up examination is recommended. 3. Large right epididymal head cyst with thickened davila and surrounding hyperemia, superimposed infection is not excluded. Close attention on follow-up is recommended. 4. Left inguinal hernia containing fluid. Scrotum Ultrasound 05/12/23 18:26 IMPRESSION: 1. Significant soft tissue thickening, swelling and edema. Recommend clinical correlation for cellulitis. 2. Flow to both testicles appears decreased, however this is likely related with limitations in technique in the setting of extensive soft tissue thickening. A short-term follow-up examination is recommended. 3. Large right epididymal head cyst with thickened davila and surrounding hyperemia, superimposed infection is not excluded. Close attention on follow-up is recommended. 4. Left inguinal hernia containing fluid. Abdomen/Pelvis CT 05/12/23 20:41 IMPRESSION: * Large amount of abdominal ascites. * Bilateral inguinal hernias, both containing loops of bowel, no evidence of obstruction. * Heterogeneous liver with nodular surface, suggesting liver cirrhosis. * Splenomegaly. * Dilated portal venous system along with varices around the splenic hilum, gastroesophageal junction and periumbilical, suggesting portal hypertension and portosystemic shunting. * Diffuse subcutaneous edema, Anasarca. * Fluid in the inguinal canal and testicles hydroceles. * Retroperitoneal para-aortic pelvic and bilateral inguinal lymphadenopathy uncertain etiology. Please correlate clinically. Follow-up recommended. Abdomen Ultrasound 05/15/23 12:15 IMPRESSION: 1. Cirrhotic morphology of the liver with large ascites. No discrete liver lesion. 2. Nonocclusive thrombus is noted in the main portal vein. There is hepatopedal flow in the portal vein. 3. Gallbladder wall thickening which can be seen in the setting of underlying liver disease. Sludge is noted within the gallbladder. No lithiasis or sonographic tenderness to suggest acute cholecystitis. 4. Sequelae of portal hypertension including large ascites and a recannulized periumbilical vein. 5. Pancreas was obscured by bowel gas. 6. Technically limited exam as above detailed with some vessels not identified. Discharge Plan Discharge Anticipated Discharge Date/Time: 05/18/23 09:47 Patient Disposition: Home, Self-Care Discharge Diagnosis: Anasarca, Decompensated hepatic cirrhosis Referrals: Chiquita Mendoza MD [Primary Care Provider] - 1 Week Discharge Medications: New spironolactone 50 mg tablet 50 mg PO DAILY Qty: 30 0RF furosemide [Lasix] 20 mg tablet 20 mg PO DAILY Qty: 30 0RF Continued glipizide 5 mg tablet extended release 24hr 5 mg PO DAILY nadolol 40 mg tablet 40 mg PO DAILY spironolactone 50 mg tablet 150 mg PO DAILY Trulicity 0.75 mg/0.5 mL pen injector 0.75 mg subcut TU furosemide 40 mg tablet 80 mg PO DAILY Held Eliquis 5 mg tablet 5 mg PO DAILY Hold Instructions: Resume on 06/02/23. hold until seen by GI Discharge Orders: Discharge Order (Routine); Ordered 05/18/23 Ordered By: Jorge Alberto Millard Diet: Advance to usual diet Activity on Discharge: As tolerated Stand Alone Forms: Patient Portal Discharge page Other Ambulatory Orders: Basic Metabolic Panel (Routine) Timeframe: 20230522 Facility: [facility] - Location: Laboratory Ordered By: Jorge Alberto Millard Complete Blood Count no Diff (Routine) Timeframe: 20230522 Facility: [facility] - Location: Laboratory Ordered By: Jorge Alberto Millard Liver Panel (Routine) Timeframe: 20230522 Facility: [facility] - Location: Laboratory Ordered By: Jorge Alberto Millard Care Plan Goals: Patient was admitted for anasarca secondary to Decompensated liver cirrhosis: Started on IV diuretics and received paracentesis 2 times during this admission, diuresed well, leg swelling and scrotal swelling is significantly improved. Seen by GI and urology: Patient Lasix adjusted to 100 mg daily upon discharge as well as spironolactone adjusted to 200 mg daily upon discharge. Anasarca improved significantly with IV diuresis and paracentesis. In addition seen by Urology for sacral edema which is also improved significantly-currently recommended to continue diuretics at home and scrotal elevation. Patient Eliquis is on hold: Considering severe anemia requiring transfusion, need to repeat CBC and start Eliquis afterwards as per GI clearance. In addition patient abdominal ultrasound during this admission shows Nonocclusive thrombus is noted in the main portal vein. There is hepatopedal flow in the portal vein. Normocytic anemia: possible combination of aocd (liver dis) and iron studies - showed component of possible iron deficiency, started on p.o. iron, patient wants to defer further testing outpatient , follow-up with GI. He was offered for IV iron in [facility] (in february/2023): He refused. Received 1 PRBC: Hemoglobin levels in 7.9 range. Monitor CBC and further workup outpatient with GI. Diarrhea: Somewhat improving, stool studies positive for EPEC (pcr) and sapovirus, C diff negative,otherwise denies any abdominal pain, tolerating diet, no fever or leukocytosis. Continue symptomatic management with Imodium at home. Due to above mentioned issues: Patient is to monitor CBC, renal function and electrolytes. Further anemia workup and liver disease management outpatient with GI. Health Concerns: As above. Plan of Treatment: As above. Assessment: As above.
[2023-05-18 11:17] LABS: Glucose, Whole Blood 135 mg/dL (60-115)
[2023-05-18] MEDS: HYDROmorphone HCl 0.5 MG/0.5 ML SYRINGE IVPUSH (11:19)
--- NOTE | 2023-05-18 13:51 | P.PNGI_ITS ---
Subjective Subjective Date of Service: 05/18/23 Interval History: Pt sitting up in chair comfortably. Reports considerable improvement in abd distention (albeit had para done 05/16 for almost 8L) as well as scrotal swelling. Weight curve reassuring Critical Care Time (minutes): 0 Physical Exam Vital Signs: Vital Signs: Last Vital Signs Temp 97.2 F 05/18/23 07:07 Pulse 54 05/18/23 07:07 Resp 16 05/18/23 07:07 BP 111/59 L 05/18/23 07:07 Pulse Ox 95 05/18/23 07:07 O2 Del Method Room Air 05/18/23 07:07 BMI result Body Mass Index 34.0 Gen appear: non toxic appearing HEENT: no icterus Abd: soft, nontender, distended but much improved from before Neuro: A/Ox3, no asterixis Objective Data Labs 05/18/23 08:20 05/17/23 10:21 Labs: Laboratory Results - last 24 hr 05/17/23 05/17/23 05/17/23 10:21 14:15 16:06 Hgb Hct Smear Path Review SEE NOTE POC Glucose 151 H Blood Type O Positive Antibody Screen NEGATIVE Crossmatch See Detail 05/17/23 05/18/23 05/18/23 20:37 07:14 08:20 Hgb 7.9 L Hct 26.6 L Smear Path Review POC Glucose 139 H 102 Blood Type Antibody Screen Crossmatch 05/18/23 11:13 Hgb Hct Smear Path Review POC Glucose 135 H Blood Type Antibody Screen Crossmatch Microbiology Microbiology Results: Microbiology 05/13/23 01:56 Ascites Fluid Gram Stain - Final 05/13/23 01:56 Ascites Fluid Anaerobic Culture - Final NO GROWTH AFTER 5 DAYS 05/13/23 01:56 Ascites Fluid Body Fluid Culture - Final No growth after 2 days Procedures Date of Service Date of Service: 05/19/23 Progress Note: A&P Assessment and plan (1) Decompensated hepatic cirrhosis: Status: Acute (2) Anasarca: Status: Acute (3) Ascites: Status: Acute Plan Etiology of liver cirrhosis appears to be hx of HCV which has since been treated. Does not report any ongoing IVDU or etOH use. PV thrombosis is nonocclusive - apixaban on hold due to anemia and ? unclear duration of thrombosis. Meld-Na: 11 Recommendations: - Can switch to PO lasix 100 mg - Increase spironlactone to 250mg - Low salt diet - Outpatient follow up will be set up - Pt to get labs done on 05/22 to monitor lytes and renal function on diuretics - Will also obtain records from [facility] for i) PV thrombosis acuity, ii) last endoscopy and iii) most recent liver imaging Recommendations reviewed with hospitalist team over the phone. Time Spent With Patient Time: Total time managing care of this patient today ____ minutes. Quality Stroke Does the patient have a stroke diagnosis?: No VTE Prior VTE?: No VTE Risk Level:: Medical - moderate - high VTE Device Contraindication: Treatment Not Indicated VTE Drug Contraindication: N/A - Med Ordered
[2023-05-18 15:28] VITALS: BP 108/57; PULSE 53; RESP 20; TEMP 36.2; O2SAT 99
[2023-05-18 16:11] LABS: Glucose, Whole Blood 136 mg/dL (60-115)
== END 2023-05-18 17:30 | disposition home or self-care (01) ==
LOC: HO.ED 21:51 → HO.EDOVER 21:57 → HO.S3 05-13 09:45
PROVIDERS: Internal Medicine; Nurse Practitioner Acute Care; Physician Assistant; Registered Nurse Emergency; Admitting Provider Student in an Organized Health Care Education/Training Program; Emergency Provider Emergency Medicine; PCP Student in an Organized Health Care Education/Training Program; Visit Provider Internal Medicine
DX: K74.69 Other cirrhosis of liver (principal); I81 Portal vein thrombosis; K76.6 Portal hypertension; A04.0 Enteropathogenic Escherichia coli infection; R18.8 Other ascites; D69.59 Other secondary thrombocytopenia; A08.39 Other viral enteritis; D63.8 Anemia in other chronic diseases classified elsewhere; E11.9 Type 2 diabetes mellitus without complications; E66.01 Morbid (severe) obesity due to excess calories; N43.3 Hydrocele, unspecified; Z86.19 Personal history of other infectious and parasitic diseases; K40.20 Bilateral inguinal hernia, without obstruction or gangrene, not specified as recurrent; R79.1 Abnormal coagulation profile; Z86.718 Personal history of other venous thrombosis and embolism; Z68.41 Body mass index [BMI] 40.0-44.9, adult; Z79.01 Long term (current) use of anticoagulants; Z79.84 Long term (current) use of oral hypoglycemic drugs; Z79.899 Other long term (current) drug therapy
CPT/HCPCS: 36415; 49083; 71045; 74176; 76705; 76870; 80048; 80053; 82042; 82728; 82945; 82947; 83540; 83615; 83690; 83880; 83986; 84157; 85014; 85018; 85025; 85027; 85610; 86850; 86900; 86901; 86923; 87070; 87073; 87205; 87493; 87507; 88112; 89051; 92950; 93005; 93975; 99285; J1170; J1940; J2270; J2405; P9016; P9047

== ENCOUNTER → 2023-05-12 17:59 | Outpatient (BNV) | payer MEDICAID, SELFPAY | PROVIDERS: Admitting Provider Student in an Organized Health Care Education/Training Program; Emergency Provider Emergency Medicine; Visit Provider Internal Medicine | DX: I45.81 Long QT syndrome (principal) | CPT/HCPCS: 93010 ==

== ENCOUNTER 2023-05-12 21:51 | Outpatient (BNV) | payer MEDICAID, SELFPAY | END 2023-05-16 13:30 | PROVIDERS: Admitting Provider Student in an Organized Health Care Education/Training Program; Emergency Provider Emergency Medicine; PCP Student in an Organized Health Care Education/Training Program; Visit Provider Radiology Vascular & Interventional Radiology | DX: R18.8 Other ascites (principal) | CPT/HCPCS: 49083 ==

== ENCOUNTER → 2023-05-12 21:51 | Outpatient (BNV) | payer MEDICAID, SELFPAY | PROVIDERS: Admitting Provider Student in an Organized Health Care Education/Training Program; Emergency Provider Emergency Medicine; Visit Provider Internal Medicine | DX: K72.90 Hepatic failure, unspecified without coma (principal); K74.60 Unspecified cirrhosis of liver; R18.8 Other ascites | CPT/HCPCS: 99223; 99232 ==

== ENCOUNTER → 2023-05-12 21:51 | Outpatient (BNV) | payer MEDICAID, SELFPAY | PROVIDERS: Admitting Provider Student in an Organized Health Care Education/Training Program; Emergency Provider Emergency Medicine; Visit Provider Surgery | DX: K74.60 Unspecified cirrhosis of liver (principal); R18.8 Other ascites; N50.89 Other specified disorders of the male genital organs | CPT/HCPCS: 99222 ==

== ENCOUNTER → 2023-05-12 21:51 | Outpatient (BNV) | payer MEDICAID, SELFPAY | PROVIDERS: Admitting Provider Student in an Organized Health Care Education/Training Program; Emergency Provider Emergency Medicine; Visit Provider Student in an Organized Health Care Education/Training Program | DX: R18.8 Other ascites (principal); N50.89 Other specified disorders of the male genital organs | CPT/HCPCS: 99222; 99231; 99232; 99239 ==

== ENCOUNTER → 2023-05-12 21:51 | Outpatient (BNV) | payer MEDICAID, SELFPAY | PROVIDERS: Admitting Provider Student in an Organized Health Care Education/Training Program; Emergency Provider Emergency Medicine; Visit Provider Urology | DX: R18.8 Other ascites (principal); N50.89 Other specified disorders of the male genital organs | CPT/HCPCS: 99222 ==

== ENCOUNTER 2023-07-06 22:54 | Inpatient (IN) | payer MEDICAID, SELFPAY ==
--- NOTE | ~2023-07-06 | US_ITS ---
EXAMINATION: Ultrasound-guided paracentesis CLINICAL INFORMATION: Anasarca COMPARISON: Previous exam 05/16/2023 TECHNIQUE: Procedure and risks and benefits including bleeding, infection and low blood pressure were discussed with the patient and informed consent was obtained. The left lower quadrant was prepped and draped in the usual sterile fashion. The skin and soft tissues were anesthetized with 1% lidocaine plain. Using ultrasound guidance and a 5 Uzbek Yueh needle, access to the ascitic fluid was obtained. 11.3 L of clear yellow fluid was removed. No diagnostic specimen was sent. FINDINGS: There is a large amount of ascites. US/US paracentesis abd w/image IMPRESSION: Ultrasound-guided paracentesis.
--- NOTE | ~2023-07-06 | XR_ITS ---
EXAMINATION: XR CHEST CLINICAL INFORMATION: r/o pulm edema, SOB COMPARISON: Chest x-ray May 12, 2023 TECHNIQUE: Frontal view of the chest was obtained. FINDINGS: Asymmetric elevation of the right diaphragm above the left. Lungs are clear. No pulmonary vascular congestion. There is no pleural effusion. The heart size is normal. The cardiac and mediastinal contours are normal. There are multilevel degenerative changes of dorsal spine. XR/XR chest 1V IMPRESSION: Unremarkable examination.
--- NOTE | ~2023-07-06 | US_ITS ---
EXAMINATION: Ultrasound duplex arterial and venous abdomen CLINICAL INFORMATION: Cirrhosis. Rule out portal vein thrombosis COMPARISON: Previous CT most recent 05/12/2023 TECHNIQUE: Doppler color and grayscale evaluation of the liver vasculature including waveform spectral analysis FINDINGS: Exam is very limited due to patient body habitus. Portal veins: The main portal vein is difficult to evaluate. There is thrombus seen in the right portal vein. There is nonocclusive thrombus seen in the left portal vein with hepatopedal flow. There is a recannulized paraumbilical vein. The splenic vein is patent. It is difficult to determine of flow direction in the splenic vein. The main hepatic artery is patent with antegrade flow and normal peak systolic velocity of 87 cm/s. The IVC is not well seen. The hepatic veins appear small but patent with appropriate waveform. The spleen is enlarged measuring 19 cm in length. There is ascites. US/US duplex arterial venous comp IMPRESSION: Very limited exam. It is difficult to evaluate patency and to determine flow direction in the main portal vein. Thrombus in the right portal vein. Nonocclusive thrombus and hepatopedal flow in the left portal vein and large recanalized paraumbilical vein. It is difficult to determine flow direction in the splenic vein. Small hepatic veins. Splenomegaly and ascites.
[2023-07-06 23:06] VITALS: BP 156/94; PULSE 87; RESP 20; TEMP 37; O2SAT 97; BMI 45.6
--- NOTE | 2023-07-07 00:12 | PC.NURSE ---
RN to WR to call patient back to room 13. Pt in bathroom and requesting an additional 10-15 minutes before coming back .
[2023-07-07 01:12] LABS: Hematocrit 28.7 % (42.0-52.0); Hemoglobin 8.7 g/dl (14.0-18.0); Mean Corpuscular HGB Conc 30.3 g/dl (31.0-36.0); Mean Corpuscular Hemoglobin 25.1 pg (27.0-33.0); Mean Corpuscular Volume 82.9 fL (80.0-98.0); Mean Platelet Volume 10.2 fL (9.4-12.4); Platelet Count 100 X10*3/uL (160-400); Red Blood Count 3.46 X10*6/uL (4.60-5.80); White Blood Count 5.9 X10*3/uL (4.8-10.8)
[2023-07-07 01:27] LABS: Alanine Aminotransferase 21 U/L (0-40); Alkaline Phosphatase 68 U/L (39-117); Anion Gap 15 (12-20); Aspartate Amino Transferase 37 U/L (5-37); Bilirubin Total 1.6 mg/dL (0.0-1.0); Blood Urea Nitrogen 10 mg/dL (9-16); Calcium 8.8 mg/dL (8.4-10.2); Carbon Dioxide 22 mmol/L (22-29); Chloride 105 mmol/L (96-108); Estimated Glomerular Filt Rate > 60; Glucose Random 158 mg/dL (60-115); Lipase 8 U/L (8-78); Potassium 3.8 mmol/L (3.3-5.1); Sodium 138 mmol/L (135-145); Total Protein 6.8 g/dL (6.5-8.0)
--- NOTE | 2023-07-07 02:08 | ED_ITS ---
HPI - General Adult General Chief complaint: General Medical Stated complaint: abdominal pain, hernia Time Seen by Provider: 07/07/23 00:38 Source: patient and family Mode of arrival: ambulatory Limitations: no limitations History of Present Illness HPI narrative: Patient comes to the emergency room complaining of anasarca. Patient states that he has still significant amount of fluid in his abdomen which is pressing and making him feel short of breath. Patient states that over the last 3-4 days, his scrotum has enlarged significanty, barely able to walk due to the massive scrotal swelling Related Data Home Medications Medication Instructions Recorded Confirmed apixaban 5 mg tablet (Eliquis) 5 mg PO DAILY 05/12/23 05/12/23 dulaglutide 0.75 mg/0.5 mL 0.75 mg subcut TU 05/12/23 05/12/23 subcutaneous pen injector (Trulicity) furosemide 40 mg tablet 80 mg PO DAILY 05/12/23 05/12/23 glipizide 5 mg tablet, extended 5 mg PO DAILY 05/12/23 05/12/23 release 24 hr nadolol 40 mg tablet 40 mg PO DAILY 05/12/23 05/12/23 spironolactone 50 mg tablet 150 mg PO DAILY 05/12/23 05/12/23 Previous Rx's Medication Instructions Recorded ferrous sulfate 325 mg (65 mg 325 mg PO DAILY #30 tabs 05/18/23 iron) tablet (Iron (ferrous sulfate)) furosemide 20 mg tablet (Lasix) 20 mg PO DAILY #30 tabs 05/18/23 loperamide 2 mg capsule 2 mg PO Q4H PRN Diarrhea #10 caps 05/18/23 omeprazole 20 mg capsule,delayed 20 mg PO DAILY #30 caps 05/18/23 release spironolactone 50 mg tablet 50 mg PO DAILY #30 tabs 05/18/23 Allergies Allergy/AdvReac Type Severity Reaction Status Date / Time oxycodone Allergy Itching Verified 05/15/23 08:49 Review of Systems 2 Review of Systems: Constitutional : No Weight loss, No Fever, No Chills, No Night Sweats, complaining of fatigue, complaining of feeling swollen from the abdomen down his leg ENT/Mouth : No Hearing loss, No Ear Pain, No Nasal Congestion, No Sinus Pain, No Hoarseness, No sore throat, No Rhinorrhea, No Swallowing Difficulty Eyes: No Eye Pain, No Swelling, No Redness, No Foreign Body, No Discharge, No Vision Changes Cardiovascular : No Chest Pain, No SOB, No Dyspnea on Exertion, No Orthopnea, No Edema, No Palpitations Respiratory : No Cough, No Sputum, No Wheezing, No Smoke Exposure, No Dyspnea Gastrointestinal : No Nausea, No Vomiting, No Diarrhea, No Constipation, No abdominal Pain, No Hematochezia, No Melena Genitourinary : no irregular bleeding, No Dysuria, No Urinary Frequency, No Hematuria, No Urinary Incontinence, No Urgency, No Flank Pain, No Urinary Flow Changes, No Hesitancy Musculoskeletal : No joint pain, No Myalgias, No Joint Swelling Skin : No Skin Lesions, No rash Neuro : No Weakness, No Numbness, No Paresthesias, No Loss of Consciousness, No Dizziness, No Headache Psych : No Anxiety/Panic, No Depression, No SI/HI/AH/VH, No Social Issues, Heme/Lymph: No Bruising, No Bleeding,No Lymphadenopathy Endocrine : No Polyuria, No Polydipsia, No Temperature Intolerance PMFSH Past Medical History Medical History Diabetes mellitus Cirrhosis Social History Social History Household Members: Other Housing: House Do you presently have visiting nurse or other home services: No Alcohol intake: former Patient Tobacco Use Status: Never used Tobacco Smoked in Last 30 Days: No Use of substances other than those prescribed or required for medical reasons: No Substance Use Type: Heroin Advance Directives: No Advance Directives Information Provided: Yes service: No Physical Exam ED Vital Signs: Vital Signs - 24 hr 07/06/23 23:06 Temperature 98.6 F Pulse Rate 87 Respiratory Rate 20 Blood Pressure 156/94 H Pulse Oximetry 97 BMI result Body Mass Index 45.6 Const Other: Appearance: Alert. Oriented X3. No acute distress. Eyes: Pupils equal, round and reactive to light. ENT: Pharynx normal. Neck: Normal inspection. Neck supple. No lymph nodes noted. No crepitus CVS: Normal heart rate and rhythm. Pulses normal. Normal S1 and S2 Respiratory: No respiratory distress. Breath sounds normal. No Wheezing. No rales Abdomen: Soft , distended, nontender Skin: Skin warm and dry. Normal skin color. Normal skin turgor. Extremities: Patient has +4 pitting edema, significant scrotal swelling Neuro: Oriented X 3. No motor deficit. No sensory deficit. Moving all extremities. No slurred speech. CN 2 through 12 grossly intact Psych: calm, cooperative, normal affect Medical Decision Making Medical Decision Making MDM Narrative: -patient's abdomen is nontender but significantly distended. No concern for SBP -my interpretation of labs: patient's white blood cell count 5.9. BNP within normal limits. -according to patient's , it is hard to determine what the patient's baseline weight is but she estimates that when patient does not have any fluid overload, he approximately weighs 102 kg. Today, patient weighs 136 kg -patient will need Interventional Radiology tomorrow for a paracentesis, there are diffuse pockets of fluid but not big enough to safely do a paracentesis in the ED -patient has anasarca, I discussed the patient with , patient admitted. Patient and agree with plan -patient will start IV Lasix, patient needs to be diuresed Differential Diagnosis Differential Diagnoses: The differential diagnosis associated with the presentation includes (Anasarca, cirrhosis, SBP) Admission/Observation Consideration of admission/observation: Escalation of care including admission/observation considered Consult Healthcare Provider Management of the patient was discussed with: Guest Relations Coordinator Lab Data [facility] Lab Attestation statement: I reviewed the patient's lab results. 07/07/23 01:06 07/07/23 01:06 Labs: Lab Results 07/07/23 07/07/23 Range/Units 01:06 02:19 WBC 5.9 (4.8-10.8) X10*3/uL RBC 3.46 L (4.60-5.80) X10*6/uL Hgb 8.7 L (14.0-18.0) g/dl Hct 28.7 L (42.0-52.0) % MCV 82.9 (80.0-98.0) fL MCH 25.1 L (27.0-33.0) pg MCHC 30.3 L (31.0-36.0) g/dl RDW 19.0 H (11.0-16.0) % Plt Count 100 L (160-400) X10*3/uL MPV 10.2 (9.4-12.4) fL Absolute Nucleated RBC 0.000 (0.0-0.012) X10*3/uL Nucleated RBC % (auto) 0.0 (0.0-0.2) /100WBC PT 16.5 H (11.1-13.3) SEC INR 1.4 H (0.9-1.1) Sodium 138 (135-145) mmol/L Potassium 3.8 (3.3-5.1) mmol/L Chloride 105 (96-108) mmol/L Carbon Dioxide 22 (22-29) mmol/L Anion Gap 15 (12-20) BUN 10 (9-16) mg/dL Creatinine 0.82 (0.5-1.4) mg/dL Estim Creat Clear Calc 139.0 Estimated GFR > 60 Random Glucose 158 H (60-115) mg/dL Calcium 8.8 D (8.4-10.2) mg/dL Total Bilirubin 1.6 H (0.0-1.0) mg/dL AST 37 (5-37) U/L ALT 21 (0-40) U/L Alkaline Phosphatase 68 (39-117) U/L B-Natriuretic Peptide 91 (<100) pg/mL Total Protein 6.8 (6.5-8.0) g/dL Albumin 3.0 L (3.5-5.0) g/dL Lipase 8 (8-78) U/L Independent Interpretation I performed an independent interpretation of an: Plain X-Ray (Interpretation of chest x-ray, no pulmonary edema. Elevated hemidiaphragm on the right.) Radiology Impression Discussion of test interpretation with radiology: I have reviewed the radiologist's reading. Radiologist Impression: Asymmetric elevation of the right diaphragm above the left. Lungs are clear. No pulmonary vascular congestion. There is no pleural effusion. The heart size is normal. The cardiac and mediastinal contours are normal. There are multilevel degenerative changes of dorsal spine. XR/XR chest 1V IMPRESSION: Unremarkable examination. Critical Care Time Critical Care Time Critical Care Time: Yes Total Critical Care Time: 60 Attestation: I have personally provided critical care time. Time includes review of lab data, radiology results, discussion with consultants, and monitoring for potential decompensation. Intervention performed as documented. Discharge Plan Discharge Clinical Impression: Anasarca Patient Disposition: Admitted As Inpatient Prescriptions: No Action glipizide 5 mg tablet extended release 24hr 5 mg PO DAILY nadolol 40 mg tablet 40 mg PO DAILY spironolactone 50 mg tablet 150 mg PO DAILY Eliquis 5 mg tablet 5 mg PO DAILY Hold Instructions: Resume on 06/02/23. hold until seen by GI Trulicity 0.75 mg/0.5 mL pen injector 0.75 mg subcut TU furosemide 40 mg tablet 80 mg PO DAILY furosemide [Lasix] 20 mg tablet 20 mg PO DAILY Qty: 30 0RF spironolactone 50 mg tablet 50 mg PO DAILY Qty: 30 0RF ferrous sulfate [Iron (ferrous sulfate)] 325 mg (65 mg iron) tablet 325 mg PO DAILY Qty: 30 0RF omeprazole 20 mg capsule,delayed release(DR/EC) 20 mg PO DAILY Qty: 30 0RF loperamide 2 mg Capsule 2 mg PO Q4H PRN (Reason: Diarrhea) Qty: 10 0RF
[2023-07-07 02:31] LABS: INTERNATIONAL NORM RATIO 1.4 (0.9-1.1); Prothrombin Time 16.5 SEC (11.1-13.3)
[2023-07-07 03:03] LABS: B Type Natriuretic Peptide 91 pg/mL (<100)
--- NOTE | 2023-07-07 03:11 | PC.NURSE ---
Tanna, patient's spouse updated cell phone number is [phone]. Please, call her at provided cell phone number with update or to arrange a ride home.
[2023-07-07 03:20] VITALS: BP 160/87; PULSE 83; O2SAT 98
--- NOTE | 2023-07-07 03:29 | PC.NURSE ---
pt refused lasix as he reports that he wants to sleep. Let provider Skip Mesa know
[2023-07-07 06:00] VITALS: BP 122/84; PULSE 84; RESP 14; TEMP 36.7; O2SAT 97
--- NOTE | 2023-07-07 07:31 | P.HPHOSP_ITS ---
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 This been progressively worsening over the past 2 weeks worse in the past 5 days. pt denies any abdominal pain, no fever chills, no diarrhea constipation, no urinary symptoms,no headache or change in vision. He also states that he is still awaiting GI evalution op. Of note patient was admitted in May for the same, he was diuresed aggressively as well as had to paracentesis and was sent home. On arrival to the ED patient hemodynamically stable Labs are significant for hemoglobin of 8.7 which is stable from recent labs, total bili of 1.6, otherwise unremarkable Patient will be admitted for further management Review of Systems 2 Review of Systems: Yes all other systems are reviewed and are negative [facility] Medical History Chronic anemia Decompensated hepatic cirrhosis Diabetes mellitus Cirrhosis Social History Household Members: Other Housing: House Do you presently have visiting nurse or other home services: No Alcohol intake: former Patient Tobacco Use Status: Never used Tobacco Smoked in Last 30 Days: No Use of substances other than those prescribed or required for medical reasons: No Substance Use Type: Heroin Advance Directives: No Advance Directives Information Provided: Yes Nutrition Risks: No Nutritional Risk service: No Meds Allergies Allergy/AdvReac Type Severity Reaction Status Date / Time oxycodone Allergy Itching Verified 05/15/23 08:49 Active Medications: Current Medications Acetaminophen (Acetaminophen 325 Mg Tablet) 650 mg PO Q6H PRN PRN Reason: Pain, Mild (Pain Scale 1-3) Furosemide (Furosemide 100 Mg/10 Ml Vial) 60 mg IVPUSH Q12H [facility]; Protocol Last Admin: 07/07/23 03:23 Dose: Not Given Ondansetron HCl (Ondansetron Hcl 4 Mg/2 Ml Vial) 4 mg IVPUSH Q8H PRN PRN Reason: Nausea and Vomiting Sodium Chloride (0.9 % Sodium Chloride Flush 3 Ml Syringe) 3 ml IVFLUSH QSHIFT [facility] Home Medications Medication Instructions Recorded Confirmed Last Taken Type apixaban 5 mg tablet (Eliquis) 5 mg PO DAILY 05/12/23 05/12/23 Unknown History dulaglutide 0.75 mg/0.5 mL 0.75 mg subcut TU 05/12/23 05/12/23 Unknown History subcutaneous pen injector (Trulicity) furosemide 40 mg tablet 80 mg PO DAILY 05/12/23 05/12/23 Unknown History glipizide 5 mg tablet, extended 5 mg PO DAILY 05/12/23 05/12/23 Unknown History release 24 hr nadolol 40 mg tablet 40 mg PO DAILY 05/12/23 05/12/23 Unknown History spironolactone 50 mg tablet 150 mg PO DAILY 05/12/23 05/12/23 Unknown History Physical Exam 2 Vital Signs and Narrative: Vital Signs: Last Vital Signs Temp 98.0 F 07/07/23 06:00 Pulse 84 07/07/23 06:00 Resp 14 07/07/23 06:00 BP 122/84 07/07/23 06:00 Pulse Ox 97 07/07/23 06:00 O2 Del Method Room Air 07/07/23 06:00 BMI result Body Mass Index 45.6 Const: General: cooperative and no acute distress O rientation/consciousness: patient oriented x3 Eyes: General: appearance normal, both eyes and all related structures Resp: Effort & Inspection: normal respiratory effort Auscultation: clear to auscultation bilaterally Cardio: Rate: regular rate Rhythm: regular rhythm GI: Other: Severely distended, no rebound or guarding, no abdominal tenderness Palpation (GI): Soft to palpation Auscultation: normal bowel sounds : Other: Scrotal edema Skin: General skin exam: no rashes or lesions noted Neuro: General: patient oriented x3 Cognition (Neuro): normal cognition Extrem: Other: 3+ edema in upper and lower extremities General: Yes normal to inspection Results Labs 07/07/23 01:06 07/07/23 01:06 Labs: Laboratory Results - last 24 hr 07/07/23 07/07/23 01:06 02:19 MCV 82.9 MCH 25.1 L MCHC 30.3 L RDW 19.0 H Plt Count 100 L MPV 10.2 Absolute Nucleated RBC 0.000 Nucleated RBC % (auto) 0.0 PT 16.5 H INR 1.4 H Anion Gap 15 Estim Creat Clear Calc 139.0 Estimated GFR > 60 Random Glucose 158 H Calcium 8.8 D Total Bilirubin 1.6 H AST 37 ALT 21 Alkaline Phosphatase 68 B-Natriuretic Peptide 91 Total Protein 6.8 Albumin 3.0 L Lipase 8 Imaging Radiologist's Impressions: Impressions Chest X-Ray 07/07/23 00:41 IMPRESSION: Unremarkable examination. 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 Decompensated cirrhosis with massive ascites/anasarca - started on IV diuretics - IR consult for paracentesis - continue nodalol as well as spironolactone - patient will likely need frequent scheduled outpatient paracentesis #. Chronic anemia - workup conducted on previous admission showed possible iron deficiency anemia - patient was advised to follow up patient in GI- appointment pending - hemoglobin stable from previous admission - follow daily CBC #. Jop-[id number] diabetes mellitus. - Initiating Accu-Cheks with sliding scale insulin #. Thrombocytopenia due to cirrhosis - follow CBC #. History paroxysmal AFib - on Eliquis- hold for paracentesis DVT prophylaxis: SCDs Given patient's decompensated liver cirrhosis with anasarca/ascites requiring massive paracentesis patient require minimum 2 nights inpatient hospital stay for further management monitoring Time Spent With Patient Time: Total time managing care of this patient today ____ minutes. Quality Stroke Does the patient have a stroke diagnosis?: No VTE Prior VTE?: No VTE Risk Level:: Medical - moderate - high VTE Device Contraindication: N/A - Device Ordered VTE Drug Contraindication: Treatment Not Indicated
--- NOTE | 2023-07-07 07:36 | MHC.EDTECH ---
Patient refused to have blood drawn.
[2023-07-07] MEDS: 0.9 % Sodium Chloride Flush 3 ML SYRINGE IVFLUSH ×3 (07:49→20:23)
--- NOTE | 2023-07-07 07:49 | PC.NURSE ---
Pt asleep, awoke to voice, denies pain. Abd swelling noted, breathing is unlabored. Sat 97% on room air. Request to sleep at this time. Warm blanket provided. Right neck EJ patent
--- NOTE | 2023-07-07 08:00 | PC.NURSE ---
Bedside u/s at this time
--- NOTE | 2023-07-07 08:21 | PHA.MEDREC ---
Pharmacy Consult ? Medication Reconciliation Spoke with patient at ED regarding Eliquis. He was supposed to resume on 06/02/23 until seen by GI. He stated he didn't re started Eliquis. Pharmacy has completed the medication reconciliation.
[2023-07-07] MEDS: Albumin Human 25 % 100 ML IV (08:35)
--- NOTE | 2023-07-07 09:40 | PC.NURSE ---
Pt ambulatory to bathroom with slow steady gait and cane. Off unit for paracentesis
--- NOTE | 2023-07-07 11:02 | PM.GICN ---
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 Pt reported his symptoms have been worsening over the past 2 weeks. Pt denied any abdominal pain, fever chills, diarrhea constipation or urinary symptoms. He also states that he is still awaiting GI evalution op. Of note patient was admitted in May for the same, had paracentesis X 2, treated with diuretics with good response and was discharged home on furosemide 100 mg and spironolactone 200 mg daily. Weight on 05/18/23 at discharge was 223 lbs. History obtained from patient's who was at the bedside. reports longstanding hx of HCV which was treated a few years ago, after he had developed cirrhosis. She recalls pt getting Epclusa + Ribavirin through [facility]. Pt decompensated within a year of treatment and developed ascites. This was initially being managed by his GI and then later on PCP however he has been lost to follow up after his PCP retired. reports pt has been compliant with low salt diet and taking diuretics every day since discharge from the [facility] last month. Ascites was initially adequately controlled and pt has noted worsening abdominal distension and scrotal edema over the past 2 weeks. WT gain from 223 to 300 lbs over the past 7 weeks. admits pt has been a little forgetful recently and denies confusion or excessive drowsiness. On arrival to the ED patient hemodynamically stable Labs are significant for hemoglobin of 8.7 which is stable from recent labs, total bili of 1.6, otherwise unremarkable Patient was admitted and started on diuretics (Furosemide 80 mg IV twice daily and spironolactone 100 mg twice daily) He had a therapeutic paracentesis earlier today and 11.3 litres of clear yellow fluid was removed. 07/07/23 US WITH DUPLEX SHOWED: Very limited exam. It is difficult to evaluate patency and to determine flow direction in the main portal vein. Thrombus in the right portal vein. Nonocclusive thrombus and hepatopedal flow in the left portal vein and large recanalized paraumbilical vein. It is difficult to determine flow direction in the splenic vein. Small hepatic veins. Splenomegaly and ascites. Review of Systems Review of Systems: Yes all other systems are reviewed and are negative [facility] Past Medical History Medical History Opioid use disorder Chronic anemia Decompensated hepatic cirrhosis Diabetes mellitus Cirrhosis Social History Social History Household Members: Spouse Housing: Apartment Housing Other:: [facility] Do you presently have visiting nurse or other home services: No Alcohol intake: former Patient Tobacco Use Status: Never used Tobacco Smoked in Last 30 Days: No Use of substances other than those prescribed or required for medical reasons: Yes Substance Use Type: Heroin Substance Use Frequency: Occasionally Last Used Substance: Weeks (ago) Last Used Substance Other:: 1 week ago Currently Displaying Signs/Symptoms of Drug Intoxication Withdrawal: No Have you been hit, kicked, punched, or otherwise hurt by someone within the past year? If so, by whom?: No Do you feel safe in your current relationship?: Yes Is there a partner from a previous relationship who is making you feel unsafe now?: No Are you made to feel afraid or neglected: No Advance Directives: Yes Advance Directives on File: Yes Advance Directives Date on File: 07/07/23 Do you have thoughts of harming others: None Do you have a plan to hurt others: No Plan Recently lost weight without trying: No Eating poorly because of decreased appetite: No Nutrition Risks: No Nutritional Risk Poor oral hygiene: No service: No Meds Allergies Allergy/AdvReac Type Severity Reaction Status Date / Time oxycodone Allergy Itching Verified 05/15/23 08:49 Active Medications: Current Medications Acetaminophen (Acetaminophen 325 Mg Tablet) 650 mg PO Q6H PRN PRN Reason: Pain, Mild (Pain Scale 1-3) Dextrose (Dextrose 50 % 25 Gm/50 Ml Syringe) 25 gm IVPUSH Q15M PRN; Protocol PRN Reason: per Hypoglycemia Standing Ord. Ferrous Sulfate (Ferrous Sulfate 324 Mg Tablet.Dr) 324 mg PO DAILY [facility] Furosemide (Furosemide 100 Mg/10 Ml Vial) 60 mg IVPUSH Q12H [facility]; Protocol Last Admin: 07/07/23 03:23 Dose: Not Given Glucose (Glucose Gel 15 Gm Gel..Gram.) 15 gm PO Q15M PRN; Protocol PRN Reason: per Hypoglycemia Standing Ord. Insulin Human Lispro (Insulin Lispro 100 Unit/Ml 3 Ml Vial) 0 unit SUBCUT QIDACHS [facility]; Protocol Omeprazole (Omeprazole 20 Mg Capsule.Dr) 20 mg PO DAILY [facility] Last Admin: 07/07/23 10:26 Dose: Not Given Ondansetron HCl (Ondansetron Hcl 4 Mg/2 Ml Vial) 4 mg IVPUSH Q8H PRN PRN Reason: Nausea and Vomiting Sodium Chloride (0.9 % Sodium Chloride Flush 3 Ml Syringe) 3 ml IVFLUSH QSHIFT [facility] Last Admin: 07/07/23 07:49 Dose: 3 ml Spironolactone (Spironolactone 25 Mg Tablet) 50 mg PO BID@0900,1800 [facility]; Protocol Home Medications Medication Instructions Recorded Confirmed Last Taken Type furosemide 20 mg tablet 80 mg PO BID@0800,1700 08/05/23 08/05/23 08/04/23 History nadolol 40 mg tablet 40 mg PO DAILY 08/05/23 08/05/23 08/04/23 History spironolactone 50 mg tablet 100 mg PO BID 08/05/23 08/05/23 08/04/23 History Physical Exam Vital Signs: Vital Signs: Last Vital Signs Temp 98.0 F 07/07/23 06:00 Pulse 84 07/07/23 06:00 Resp 14 07/07/23 06:00 BP 122/84 07/07/23 06:00 Pulse Ox 97 07/07/23 06:00 O2 Del Method Room Air 07/07/23 06:00 BMI result Body Mass Index 45.6 Const: General: no acute distress and ill appearing Nutritional Appearance: obese (morbidly obese) Orientation/consciousness: patient oriented x3 HEENT: Head: Yes normal to inspection Ears: hearing grossly normal bilaterally Eyes: Sclerae: sclerae normal Pupils: Equal, round and reactive pupils present Neck: Neck: Yes normal visual inspection Chest: Chest palpation & inspection: normal inspection of the chest Resp: Effort & Inspection: normal respiratory effort Auscultation: clear to auscultation bilaterally Cardio: Palpation: normal PMI Rate: regular rate Rhythm: regular rhythm Heart sounds: S1 normal heart sound present, S2 normal heart sound present and no murmurs GI: Inspection: Yes distended (due to ascites) Palpation (GI): nontender, No hepatosplenomegaly present and Ascites present Auscultation: normal bowel sounds Rectal Exam - Male: Yes deferred Skin: General skin exam: no rashes or lesions noted Neuro: General: patient oriented x3, gait normal and moves all extremities Cranial nerves: Yes Equal, round and reactive pupils present Extrem: General: Yes edema (3+ pitting edema in upper and lower extremities) Psych: Appearance: grossly normal Mental Status: mental status grossly normal Results Labs 07/10/23 05:44 07/10/23 05:44 Labs: Short CBC 07/07/23 Range/Units 01:06 WBC 5.9 (4.8-10.8) X10*3/uL Hgb 8.7 L (14.0-18.0) g/dl Hct 28.7 L (42.0-52.0) % Plt Count 100 L (160-400) X10*3/uL BMP 07/07/23 01:06 Sodium 138 Potassium 3.8 Chloride 105 Carbon Dioxide 22 BUN 10 Creatinine 0.82 Calcium 8.8 D Liver Function 07/07/23 Range/Units 01:06 Total Bilirubin 1.6 H (0.0-1.0) mg/dL AST 37 (5-37) U/L ALT 21 (0-40) U/L Alkaline Phosphatase 68 (39-117) U/L Albumin 3.0 L (3.5-5.0) g/dL Assessment and Plan (1) Cirrhosis: Status: Acute (2) Ascites: Status: Acute (3) Scrotal edema: Status: Acute (4) Chronic anemia: Status: Acute Plan 53 YM with ESLD (past hep C + JULIEN)complicated by ascites, PVT and portal hypertension, [id number] diabetes, paroxysmal AFib on Eliquis seen at [facility] ED on 07/07/23 with abdominal and scrotal swelling. reports pt has been compliant with low salt diet and taking diuretics every day since discharge from the [facility] last month. Ascites was initially adequately controlled and pt has noted worsening abdominal distension and scrotal edema over the past 2 weeks. Patient was admitted and started on diuretics (Furosemide 80 mg IV twice daily and spironolactone 100 mg twice daily) He had a therapeutic paracentesis earlier today and 11.3 litres of clear yellow fluid was removed. Etiology of liver cirrhosis is likely a combination of JULIEN (morbid obesity and DM) and past HCV. Pt denies ongoing IVDU or etOH use. RECOMMENDATIONS: 1. Continue furosemide 80 mg IV twice daily. 2. Continue PO Spironolactone to 200 mg daily if electrolytes and renal function remain stable 3. Low salt diet 4. Elevate legs and scrotum (can placed a folded towel underneath) to mobilize fluid 5. Please check daily weight and intake/output record to help with volume assessment 6. Advise a repeat large volume paracentesis on 07/09/23 (supplement with albumin 25% 8g/l removed) and check ascitic fluid for cell count and diff to rule out SBP. 7. Hepatitis A, B serologies to determine if pt needs to be vaccinated and Hep C RNA PCR to rule out Hep C relapse - order placed Time Spent With Patient Time: Total time managing care of this patient today ____ minutes. Procedures Date of Service Date of Service: 08/12/23
[2023-07-07 12:02] VITALS: BP 135/63; PULSE 77; RESP 18; O2SAT 98
--- NOTE | 2023-07-07 12:03 | PC.NURSE ---
Returned to room from paracentesis, 11.3 L removed per SSS staff. Denies restful, denies pain VSS. POC 145.
[2023-07-07 12:08] LABS: Glucose, Whole Blood 145 mg/dL (60-115)
[2023-07-07] MEDS: Lidocaine HCl 1 % MPF 5 ML VIAL SUBCUT (12:08)
[2023-07-07 14:06] VITALS: BP 146/65; PULSE 75; RESP 16; TEMP 36.6; O2SAT 96
--- NOTE | 2023-07-07 14:12 | HO.SKINPHOTO ---
Location:right buttock Category: pressure injury Stage: II Length: 1.5cm Width: 2cm Depth: cm Foam dressing applied. Location: Category: Stage: Length: Width: Depth: cm Location: Category: Stage: Length: Width: Depth: cm Location: Category: Stage: Length: Width: Depth: cm Location: Category: Stage: Length: Width: Depth: cm Location: Category: Stage: Length: Width: Depth: cm
--- NOTE | 2023-07-07 14:31 | PM.EVENT ---
Event Note Date of Service: 07/07/23 Event Note: Day hospitalist update S: had paracentesis with removal of 11.3 ascites O: VS- T 97.8, BP 146/65, P 75, R 16, SaO2 96 on RA gen- tired lungs- CTAB CV- RRR no m/r/g abd- tense, no leak of fluid ext- 2+ bilateral edema A/P: d1 53yo M with HCV cirrhosis with resistant ascites, pAF presenting with massive ascites/anasarca ascites - paracentesis today, 11.3L fluid removed with albumin administration - IV furosemide, PO spironolactone- increase doses as needed; low-sodium diet - scheduled outpt paracentesis - GI consult; ?TIPS as bridge to transplatn ANTONIO - Fe supplementation thrombocytopenia due to cirrhosis - plt count stable paroxysmal AF - not on AC DM2 - yoko-dose lispro VTE ppx - SCDs dispo - eventual home In my clinical judgment, the patient requires continued inpatient hospitalization for the following reasons: diuresis IV Time Spent With Patient Time: Total time managing care of this patient today ____ minutes.
[2023-07-07 14:43] VITALS: BMI 45.6
--- NOTE | 2023-07-07 14:55 | MHC.CLN ---
NUTRITION CONSULT FOR POOR PO, LIVER DISEASE AND STAGE II PRESSURE INJURY. DIET CHANGED FROM REGULAR TO DIABETIC 2000 KCALS. INCREASED NUTRITION NEEDS, PROTEIN, DUE TO STAGE II PRESSURE INJURY TO RIGHT BUTTOCK. ADDING ENSURE MAX PROTEIN BID TO PROMOTE WOUND HEALING. SUPPLEMENT PROVIDES 300 KCALS, 60 G PROTEIN. FOLLOW FOR PO INTAKE AND WOUND HEALING. SEE CLINICAL NUTRITION ASSESSMENT 07/07/23.
[2023-07-07 15:07] VITALS: BP 146/65; PULSE 75; RESP 16; TEMP 36.6; O2SAT 96
[2023-07-07 16:14] LABS: Glucose, Whole Blood 132 mg/dL (60-115)
[2023-07-07] MEDS: Furosemide 100 MG/10 ML VIAL 60 MG IVPUSH (17:11)
[2023-07-07] MEDS: Spironolactone 25 MG TABLET 50 MG PO (17:11)
[2023-07-07 19:05] VITALS: BP 146/69; PULSE 83; RESP 18; TEMP 36.9; O2SAT 93
[2023-07-07 20:18] LABS: Glucose, Whole Blood 132 mg/dL (60-115)
[2023-07-08] VITALS (7 sets, daily range): BP systolic 142–176; BP diastolic 73–89; PULSE 81–87; RESP 15–18; TEMP 36.6–36.9; O2SAT 92–97
[2023-07-08] MEDS: HYDROmorphone HCl 0.5 MG/0.5 ML SYRINGE IVPUSH (06:27)
[2023-07-08 07:37] LABS: Glucose, Whole Blood 106 mg/dL (60-115)
--- NOTE | 2023-07-08 09:05 | P.PNIM_ITS ---
Subjective Subjective Date of Service: 07/08/23 Interval History: was compliant with diuretics no pain c/o opioid withdrawal, last used heroin a few days ago, interested in going on methadone Review of Systems Review of Systems: Yes all other systems are reviewed and are negative Physical Exam 2 Vital Signs: Vital Signs: Last Vital Signs Temp 98.4 F 07/08/23 07:42 Pulse 83 07/08/23 07:42 Resp 15 07/08/23 07:42 BP 154/75 H 07/08/23 07:42 Pulse Ox 93 07/08/23 07:42 O2 Del Method Room Air 07/08/23 07:42 BMI result Body Mass Index 45.6 Gen: in no acute distress HEENT: sclera anicteric, moist mucus membranes Neck: supple Lungs: clear to auscultation bilaterally Heart: regular rate and rhythm, no murmurs Abd: soft, distended, no fluid leak at paracentesis site, obese Ext: 2+ bilateral leg edema Skin: warm/well-perfused Neuro: alert and oriented x3, no asterixis Psych: appropriate affect Objective Data Active Medications Acetaminophen (Acetaminophen 325 Mg Tablet) 650 mg PO Q6H PRN PRN Reason: Pain, Mild (Pain Scale 1-3) Dextrose (Dextrose 50 % 25 Gm/50 Ml Syringe) 25 gm IVPUSH Q15M PRN; Protocol PRN Reason: per Hypoglycemia Standing Ord. Ferrous Sulfate (Ferrous Sulfate 324 Mg Tablet.) 324 mg PO DAILY [facility] Furosemide (Furosemide 100 Mg/10 Ml Vial) 80 mg IVPUSH BID@0800,1700 [facility]; Protocol Glucose (Glucose Gel 15 Gm Gel..Gram.) 15 gm PO Q15M PRN; Protocol PRN Reason: per Hypoglycemia Standing Ord. Insulin Human Lispro (Insulin Lispro 100 Unit/Ml 3 Ml Vial) 0 unit SUBCUT QIDACHS [facility]; Protocol Last Admin: 07/08/23 08:21 Dose: Not Given Documented By: ZANDER Non-Admin Reason: No Insulin Coverage Omeprazole (Omeprazole 20 Mg Capsule.) 20 mg PO DAILY [facility] Last Admin: 07/07/23 10:26 Dose: Not Given Documented By: DANIELLE Non-Admin Reason: not in room, procedure Ondansetron HCl (Ondansetron Hcl 4 Mg/2 Ml Vial) 4 mg IVPUSH Q8H PRN PRN Reason: Nausea and Vomiting Sodium Chloride (0.9 % Sodium Chloride Flush 3 Ml Syringe) 3 ml IVFLUSH QSHIFT [facility] Last Admin: 07/07/23 20:23 Dose: 3 ml Documented By: FILIPPO Spironolactone (Spironolactone 25 Mg Tablet) 100 mg PO BID@0900,1800 [facility]; Protocol Labs 07/07/23 01:06 07/07/23 01:06 Labs: Laboratory Results - last 24 hr 07/07/23 07/07/23 07/07/23 12:01 16:08 20:14 POC Glucose 145 H 132 H 132 H 07/08/23 07:29 POC Glucose 106 Assessment and Plan (1) Anemia: Status: Acute (2) Scrotal edema: Status: Acute (3) Cirrhosis: Status: Acute Plan d2 53yo M with HCV cirrhosis with resistant ascites, pAF presenting with massive ascites/anasarca ascites - therapeutic paracentesis done 07/07 with 11.3L fluid removed with albumin administration - IV furosemide, PO spironolactone- increased doses - low-Na diet - may require scheduled outpt paracentesis - GI consulted; will need outpt f/u OUD - Addiction Medicine consult re methadone re-start ANTONIO - Fe supplementation thrombocytopenia due to cirrhosis - plt count stable paroxysmal AF - not on AC DM2 - yoko-dose lispro VTE ppx - SCDs dispo - eventual home In my clinical judgment, the patient requires continued inpatient hospitalization for the following reasons: IV diuresis Time Spent With Patient Time: Total time managing care of this patient today _35___ minutes. Quality Stroke Does the patient have a stroke diagnosis?: No VTE Prior VTE?: No VTE Risk Level:: Medical - moderate - high VTE Device Contraindication: N/A - Device Ordered VTE Drug Contraindication: Treatment Not Indicated
[2023-07-08] MEDS: Omeprazole 20 MG CAPSULE.DR PO (09:09)
[2023-07-08] MEDS: Ferrous Sulfate 324 MG TABLET.DR PO (09:09)
[2023-07-08] MEDS: oxyCODONE HCl Immed Release 5 MG TABLET PO (11:20)
[2023-07-08 11:21] LABS: Glucose, Whole Blood 122 mg/dL (60-115)
[2023-07-08] MEDS: methADONE HCl 20 MG/2 ML ORAL.CONC 40 MG PO (14:10)
[2023-07-08 16:20] LABS: Glucose, Whole Blood 132 mg/dL (60-115)
--- NOTE | 2023-07-08 16:26 | MHC.CM.PN ---
CM ATTEMPTED TO SEE PT WHO WAS SLEEPING CM WILL REVISIT TOMORROW
[2023-07-08] MEDS: Spironolactone 25 MG TABLET 100 MG PO (16:42)
[2023-07-08] MEDS: Furosemide 100 MG/10 ML VIAL 80 MG IVPUSH (16:42)
[2023-07-08] MEDS: 0.9 % Sodium Chloride Flush 3 ML SYRINGE IVFLUSH ×2 (16:52→20:18)
[2023-07-08] MEDS: methADONE HCl 20 MG/2 ML ORAL.CONC 5 MG PO (20:35)
[2023-07-08 20:49] LABS: Glucose, Whole Blood 129 mg/dL (60-115)
[2023-07-09] VITALS (7 sets, daily range): BP systolic 128–155; BP diastolic 64–78; PULSE 75–87; RESP 16–18; TEMP 36.4–37.1; O2SAT 94–97
[2023-07-09 05:19] LABS: Hematocrit 25.7 % (42.0-52.0); Hemoglobin 7.7 g/dl (14.0-18.0); Mean Corpuscular Hemoglobin 25.2 pg (27.0-33.0); Mean Corpuscular Volume 84.3 fL (80.0-98.0); Mean Platelet Volume 10.3 fL (9.4-12.4); Red Blood Count 3.05 X10*6/uL (4.60-5.80); Red Cell Distribution Width 18.9 % (11.0-16.0); White Blood Count 5.2 X10*3/uL (4.8-10.8)
[2023-07-09 05:22] LABS: Platelet Count 84 X10*3/uL (160-400)
[2023-07-09 05:26] LABS: INTERNATIONAL NORM RATIO 1.5 (0.9-1.1)
[2023-07-09 05:37] LABS: Alanine Aminotransferase 15 U/L (0-40); Albumin Level 2.6 g/dL (3.5-5.0); Alkaline Phosphatase 55 U/L (39-117); Anion Gap 12 (12-20); Aspartate Amino Transferase 25 U/L (5-37); Bilirubin Direct 0.5 mg/dL (0.0-0.5); Bilirubin Total 0.9 mg/dL (0.0-1.0); Blood Urea Nitrogen 13 mg/dL (9-16); Calcium 7.9 mg/dL (8.4-10.2); Carbon Dioxide 26 mmol/L (22-29); Chloride 105 mmol/L (96-108); Creatinine Clr Calc Pharmacy 123.9; Estimated Glomerular Filt Rate > 60; Glucose Random 192 mg/dL (60-115); Magnesium 1.8 mg/dL (1.6-2.6); Potassium 3.1 mmol/L (3.3-5.1); Sodium 140 mmol/L (135-145); Total Protein 5.5 g/dL (6.5-8.0)
[2023-07-09 07:09] LABS: Glucose, Whole Blood 150 mg/dL (60-115)
[2023-07-09] MEDS: Omeprazole 20 MG CAPSULE.DR PO (08:24)
[2023-07-09] MEDS: Ferrous Sulfate 324 MG TABLET.DR PO (08:24)
[2023-07-09] MEDS: Spironolactone 25 MG TABLET 100 MG PO ×2 (08:24→17:27)
[2023-07-09] MEDS: methADONE HCl 20 MG/2 ML ORAL.CONC 50 MG PO (08:24)
[2023-07-09] MEDS: Potassium Chloride ER 20 MEQ TAB.ER.PRT 40 MEQ PO (08:25)
[2023-07-09] MEDS: Furosemide 100 MG/10 ML VIAL 80 MG IVPUSH ×2 (08:25→17:28)
[2023-07-09] MEDS: 0.9 % Sodium Chloride Flush 3 ML SYRINGE IVFLUSH ×3 (08:26→21:14)
--- NOTE | 2023-07-09 09:35 | P.PNIM_ITS ---
Subjective Subjective Date of Service: 07/09/23 Interval History: feels less swollen started on methadone 40 mg->50 mg by TUBE LANCER Dana Diamond no melena/hematochezia Review of Systems Review of Systems: Yes all other systems are reviewed and are negative Physical Exam 2 Vital Signs: Vital Signs: Last Vital Signs Temp 97.5 F 07/09/23 07:09 Pulse 75 07/09/23 07:09 Resp 16 07/09/23 07:09 BP 128/64 07/09/23 07:09 Pulse Ox 94 07/09/23 07:09 O2 Del Method Room Air 07/09/23 07:09 BMI result Body Mass Index 45.6 Gen: in no acute distress HEENT: sclera anicteric, moist mucus membranes Neck: supple Lungs: clear to auscultation bilaterally Heart: regular rate and rhythm, no murmurs Abd: soft, distended, no fluid leak at paracentesis site, obese Ext: 2+ bilateral leg edema Skin: warm/well-perfused Neuro: alert and oriented x3, no asterixis Psych: appropriate affect Objective Data Active Medications Acetaminophen (Acetaminophen 325 Mg Tablet) 650 mg PO Q6H PRN PRN Reason: Pain, Mild (Pain Scale 1-3) Dextrose (Dextrose 50 % 25 Gm/50 Ml Syringe) 25 gm IVPUSH Q15M PRN; Protocol PRN Reason: per Hypoglycemia Standing Ord. Ferrous Sulfate (Ferrous Sulfate 324 Mg Tablet.Dr) 324 mg PO DAILY [facility] Last Admin: 07/09/23 08:24 Dose: 324 mg Documented By: CARI Furosemide (Furosemide 100 Mg/10 Ml Vial) 80 mg IVPUSH BID@0800,1700 [facility]; Protocol Last Admin: 07/09/23 08:25 Dose: 80 mg Documented By: CARI Glucose (Glucose Gel 15 Gm Gel..Gram.) 15 gm PO Q15M PRN; Protocol PRN Reason: per Hypoglycemia Standing Ord. Insulin Human Lispro (Insulin Lispro 100 Unit/Ml 3 Ml Vial) 0 unit SUBCUT QIDACHS [facility]; Protocol Last Admin: 07/09/23 07:31 Dose: Not Given Documented By: CARI Non-Admin Reason: No Insulin Coverage Methadone HCl (Methadone Hcl 20 Mg/2 Ml Oral.Conc) 50 mg PO DAILY [facility] Last Admin: 07/09/23 08:24 Dose: 50 mg Documented By: CARI Omeprazole (Omeprazole 20 Mg Capsule.) 20 mg PO DAILY [facility] Last Admin: 07/09/23 08:24 Dose: 20 mg Documented By: CARI Ondansetron HCl (Ondansetron Hcl 4 Mg/2 Ml Vial) 4 mg IVPUSH Q8H PRN PRN Reason: Nausea and Vomiting Sodium Chloride (0.9 % Sodium Chloride Flush 3 Ml Syringe) 3 ml IVFLUSH QSHIFT [facility] Last Admin: 07/09/23 08:26 Dose: 3 ml Documented By: CARI Spironolactone (Spironolactone 25 Mg Tablet) 100 mg PO BID@0900,1800 [facility]; Protocol Last Admin: 07/09/23 08:24 Dose: 100 mg Documented By: CARI Labs 07/09/23 04:56 07/09/23 04:56 Labs: Laboratory Results - last 24 hr 07/08/23 07/08/23 07/08/23 11:15 15:57 20:40 MCV MCH MCHC RDW Plt Count MPV Absolute Nucleated RBC Nucleated RBC % (auto) PT INR Anion Gap Estim Creat Clear Calc Estimated GFR POC Glucose 122 H 132 H 129 H Random Glucose Calcium Magnesium Total Bilirubin Direct Bilirubin AST ALT Alkaline Phosphatase Total Protein Albumin 07/09/23 07/09/23 04:56 07:04 MCV 84.3 MCH 25.2 L MCHC 30.0 L RDW 18.9 H Plt Count 84 L MPV 10.3 Absolute Nucleated RBC 0.000 Nucleated RBC % (auto) 0.0 PT 18.0 H INR 1.5 H Anion Gap 12 Estim Creat Clear Calc 123.9 Estimated GFR > 60 POC Glucose 150 H Random Glucose 192 H Calcium 7.9 L D Magnesium 1.8 Total Bilirubin 0.9 Direct Bilirubin 0.5 AST 25 ALT 15 Alkaline Phosphatase 55 Total Protein 5.5 L Albumin 2.6 L Assessment and Plan (1) Anemia: Status: Acute (2) Scrotal edema: Status: Acute (3) Cirrhosis: Status: Acute Plan d2 53yo M with HCV cirrhosis with resistant ascites, pAF presenting with massive ascites/anasarca ascites - therapeutic paracentesis done 07/07 with 11.3L fluid removed with albumin given - IV furosemide 80mg bid, PO spironolactone 100mg bid - low-Na diet - arrange scheduled outpt paracentesis q2wk anemia due to cirrhosis + iron deficiency - Hb 8.7->7.7, will check FOBT and repeat CBC in AM with T+S in case needs transfusion; if FOBT+ will discuss EGD with GI - replete Fe thrombocytopenia due to cirrhosis - plt count 100->84 decomp cirrhosis due to HCV - needs outpt GI f/u, abstinence from drugs and eventual transplant evaluation - AFP level pending OUD - Addiction Medicine consulted and restarted methadone - HBV/HCV/HIV screen pending paroxysmal AF - not on AC due to bleeding risk DM2 - correction-dose lispro VTE ppx - SCDs, no heparin given anemia/thrombocytopenia dispo - eventual home, PT eval tomorrow In my clinical judgment, the patient requires continued inpatient hospitalization for the following reasons: IV diuresis, anemia Time Spent With Patient Time: Total time managing care of this patient today __40__ minutes. Quality Stroke Does the patient have a stroke diagnosis?: No VTE Prior VTE?: No VTE Risk Level:: Medical - moderate - high VTE Device Contraindication: N/A - Device Ordered VTE Drug Contraindication: Treatment Not Indicated
[2023-07-09 11:47] LABS: Glucose, Whole Blood 151 mg/dL (60-115)
--- NOTE | 2023-07-09 15:22 | MHC.CM.PN ---
CM MET WITH PT AND AT BEDSIDE THEY REPORT THEY LIVE IN THE [place] [id number] [address] PROVIDED BY [facility] THEY REPORT HE HAS BEEN INDEPENDENT WITH CARE BUT THEY ARE WORKING ON GETTING REGISTERED NURSE POST PARTUM HOURS THEY ARE CONCERNED ABOUT HIS ABILITY TO GET TO [facility] HE HAS BEEN SET UP WITH [facility] [place] THEY ARE REQUESTING VNA REFERRAL FOR METHADONE DELIVERY CM WILL MAKE REFERRAL BUT INFORMED THEM THIS WAS NOT A GUARANTEE DCP: RETURN TO [address] VIA SHUTTLE
[2023-07-09 16:34] LABS: Glucose, Whole Blood 161 mg/dL (60-115)
--- NOTE | 2023-07-09 17:01 | HO.ADDICTCON ---
History of Present Illness Date of Service: 07/09/2023 Chief Complaint: anasarca Reason for Consult: OUD --requesting to restart methadone Requesting physician: Crystal Boone Sources of Information: patient interviewed and chart reviewed HPI Narrative: Patient is a 53 year old male with long history of OUD currently medically admitted with liver cirrhosis and ascites requiring paracentisis. During admission he reported opioid withdrawal sx to attending provider and requested to restart methadone. Methadone 40mg +5mg at HS administered with positive effect on 07/08. This morning (07/08), patient received 50mg methadone, then seen by this property underwriter. He was sitting on the edge of the hospital bed, awake, pleasant and engaged in interview. Patient's partner also in room during interview. He reports previously being on methadone via [facility], however had a recurrence and stopped going to clinic--unclear when, he believes he was last there about a month or more ago. Discussed additional challenges with OTP adherence--which he identifies as mainly transportation and overall ambulation when experiencing ascites. Currently residing at [facility]. His partner is a strong support. Reports motivation to work towards abstinence of use as he wants to make it onto the liver transplant list, and this requires 6 months of no substance use. Substance use hsitory: 30+ years of opioid use. Denies any history of overdose Prefers methadone -- suboxone makes me so nauseous anytime I take it, and methadone has actually helped me stop using . Denies alcohol use, reports occasional cocaine use During visit appearing comfortable, no visible withdrawal sx noted, and none reported. Prior to admission he reports using approx a bundle of heroin/fentanyl daily. Medical Evaluation Reviewed: Yes Review of Systems Constitutional: Reports as per HPI and Reports no additional constitutional complaints Diagnostics Vital Signs (24Hr): Vital Signs - 24 hr 07/08/23 19:39 07/09/23 00:00 07/09/23 03:01 Temperature 97.8 F 98.8 F 98.8 F Pulse Rate 84 84 87 Respiratory Rate 18 18 18 Blood Pressure 148/74 H 155/77 H 147/78 H Pulse Oximetry 97 97 95 Oxygen Delivery Method Room Air Room Air Room Air 07/09/23 07:09 07/09/23 11:34 07/09/23 15:38 Temperature 97.5 F 97.5 F 98.5 F Pulse Rate 75 75 78 Respiratory Rate 16 18 16 Blood Pressure 128/64 131/73 130/67 Pulse Oximetry 94 97 96 Oxygen Delivery Method Room Air Room Air Room Air BMI result Body Mass Index 45.6 Labs 07/09/23 04:56 07/09/23 04:56 Labs: Laboratory Results - last 48 hr 07/07/23 07/08/23 07/08/23 20:14 07:29 11:15 WBC RBC Hgb Hct MCV MCH MCHC RDW Plt Count MPV Absolute Nucleated RBC Nucleated RBC % (auto) PT INR Sodium Potassium Chloride Carbon Dioxide Anion Gap BUN Creatinine Estim Creat Clear Calc Estimated GFR POC Glucose 132 H 106 122 H Random Glucose Calcium Magnesium Total Bilirubin Direct Bilirubin AST ALT Alkaline Phosphatase Total Protein Albumin 07/08/23 07/08/23 07/09/23 15:57 20:40 04:56 WBC 5.2 RBC 3.05 L Hgb 7.7 L Hct 25.7 L MCV 84.3 MCH 25.2 L MCHC 30.0 L RDW 18.9 H Plt Count 84 L MPV 10.3 Absolute Nucleated RBC 0.000 Nucleated RBC % (auto) 0.0 PT 18.0 H INR 1.5 H Sodium 140 Potassium 3.1 L Chloride 105 Carbon Dioxide 26 Anion Gap 12 BUN 13 Creatinine 0.92 Estim Creat Clear Calc 123.9 Estimated GFR > 60 POC Glucose 132 H 129 H Random Glucose 192 H Calcium 7.9 L D Magnesium 1.8 Total Bilirubin 0.9 Direct Bilirubin 0.5 AST 25 ALT 15 Alkaline Phosphatase 55 Total Protein 5.5 L Albumin 2.6 L 07/09/23 07/09/23 07/09/23 07:04 11:34 15:42 WBC RBC Hgb Hct MCV MCH MCHC RDW Plt Count MPV Absolute Nucleated RBC Nucleated RBC % (auto) PT INR Sodium Potassium Chloride Carbon Dioxide Anion Gap BUN Creatinine Estim Creat Clear Calc Estimated GFR POC Glucose 150 H 151 H 161 H Random Glucose Calcium Magnesium Total Bilirubin Direct Bilirubin AST ALT Alkaline Phosphatase Total Protein Albumin Imaging Radiology Impressions: ITS Impressions Chest X-Ray 07/07/23 00:41 IMPRESSION: Unremarkable examination. Paracentesis Ultrasound 07/07/23 11:23 IMPRESSION: Ultrasound-guided paracentesis. Doppler Study Ultrasound 07/07/23 11:27 IMPRESSION: Very limited exam. It is difficult to evaluate patency and to determine flow direction in the main portal vein. Thrombus in the right portal vein. Nonocclusive thrombus and hepatopedal flow in the left portal vein and large recanalized paraumbilical vein. It is difficult to determine flow direction in the splenic vein. Small hepatic veins. Splenomegaly and ascites. Mental Status Exam Mental Status Exam Patient Appearance: Appropriate Patient Orientation: Person, Place, Time and Situation Level of Consciousness: Awake, Appropriate and Alert Patient Behavior: Appropriate and Good Eye Contact Affect Description: Calm and Appropriate Speech Pattern: Clear Medications Medications Current Medications Acetaminophen (Acetaminophen 325 Mg Tablet) 650 mg PO Q6H PRN PRN Reason: Pain, Mild (Pain Scale 1-3) Dextrose (Dextrose 50 % 25 Gm/50 Ml Syringe) 25 gm IVPUSH Q15M PRN; Protocol PRN Reason: per Hypoglycemia Standing Ord. Ferrous Sulfate (Ferrous Sulfate 324 Mg Tablet.) 324 mg PO DAILY [facility] Last Admin: 07/09/23 08:24 Dose: 324 mg Furosemide (Furosemide 100 Mg/10 Ml Vial) 80 mg IVPUSH BID@0800,1700 [facility]; Protocol Last Admin: 07/09/23 08:25 Dose: 80 mg Glucose (Glucose Gel 15 Gm Gel..Gram.) 15 gm PO Q15M PRN; Protocol PRN Reason: per Hypoglycemia Standing Ord. Insulin Human Lispro (Insulin Lispro 100 Unit/Ml 3 Ml Vial) 0 unit SUBCUT QIDACHS [facility]; Protocol Last Admin: 07/09/23 11:50 Dose: Not Given Methadone HCl (Methadone Hcl 20 Mg/2 Ml Oral.Conc) 50 mg PO DAILY [facility] Last Admin: 07/09/23 08:24 Dose: 50 mg Omeprazole (Omeprazole 20 Mg Capsule.) 20 mg PO DAILY [facility] Last Admin: 07/09/23 08:24 Dose: 20 mg Ondansetron HCl (Ondansetron Hcl 4 Mg/2 Ml Vial) 4 mg IVPUSH Q8H PRN PRN Reason: Nausea and Vomiting Sodium Chloride (0.9 % Sodium Chloride Flush 3 Ml Syringe) 3 ml IVFLUSH QSHIFT [facility] Last Admin: 07/09/23 08:26 Dose: 3 ml Spironolactone (Spironolactone 25 Mg Tablet) 100 mg PO BID@0900,1800 [facility]; Protocol Last Admin: 07/09/23 08:24 Dose: 100 mg Allergies Allergies Allergy/AdvReac Type Severity Reaction Status Date / Time oxycodone Allergy Itching Verified 05/15/23 08:49 Assessment & Plan Assessment & Plan (1) Opioid use disorder: Status: Acute Code(s): F11.90 - Opioid use, unspecified, uncomplicated Assessment and Plan: methadone at 50mg today--managing withdrawal sx. slower titration due to decompensated cirrhosis. 55mg in AM Recovery Support RN to complete referral to [facility] overdose prevention discussion Total time managing care of this patient today __45__ minutes. Patient educated on: medication risk/benefits and medical condition Informed Consent: understands [facility] Past Medical History Medical History Chronic anemia Decompensated hepatic cirrhosis Diabetes mellitus Cirrhosis Social History Social History Household Members: Spouse Housing: Other Housing Other:: [facility] Do you presently have visiting nurse or other home services: No Alcohol intake: former Patient Tobacco Use Status: Never used Tobacco Substance Use Type: Heroin Advance Directives Date on File: 07/07/23 service: No
[2023-07-09 19:30] LABS: CDiff Gene PCR NEGATIVE (Negative)
[2023-07-09 20:54] LABS: Glucose, Whole Blood 182 mg/dL (60-115)
--- NOTE | 2023-07-09 23:01 | PC.NURSE ---
pt in room 354 is asking for pain med. pt says that he has scrotum and abdomen pain 7/10. Pt stated that pain is mainly scrotum related. Pt has no PRN pain meds prescribed other than tylenol. Pt is allergic to oxycodone. Pt is asking for dilaudid. Pt said that methadone is uneffective. Dr. Tomas was notified. Dr. Ferrer was dealing with an emergent ED case, so she asked me to order an one time 5 IV push morphine telephone order. Clinical Therapist Jennie made a telephone order for one time 5 IV push morphine. Pt was notified, pt said that he is allergic to methadone. Dr. Tomas was notified. Methadone was not given. Dr. Ferrer put in order for dilaudid.
[2023-07-09] MEDS: HYDROmorphone HCl 0.5 MG/0.5 ML SYRINGE IVPUSH (23:16)
[2023-07-10 03:21] VITALS: BP 133/64; PULSE 78; RESP 18; TEMP 36.4; O2SAT 94
[2023-07-10 06:15] LABS: Anion Gap 12 (12-20); Blood Urea Nitrogen 11 mg/dL (9-16); Calcium 8.3 mg/dL (8.4-10.2); Carbon Dioxide 28 mmol/L (22-29); Chloride 103 mmol/L (96-108); Creatinine Clr Calc Pharmacy 122.6; Estimated Glomerular Filt Rate > 60; Glucose Random 139 mg/dL (60-115); Magnesium 1.6 mg/dL (1.6-2.6); Potassium 3.5 mmol/L (3.3-5.1); Sodium 139 mmol/L (135-145)
[2023-07-10 06:24] LABS: Hematocrit 26.7 % (42.0-52.0); Hemoglobin 8.1 g/dl (14.0-18.0); Mean Corpuscular HGB Conc 30.3 g/dl (31.0-36.0); Mean Corpuscular Hemoglobin 25.1 pg (27.0-33.0); Mean Corpuscular Volume 82.7 fL (80.0-98.0); Mean Platelet Volume 9.9 fL (9.4-12.4); Platelet Count 75 X10*3/uL (160-400); Red Blood Count 3.23 X10*6/uL (4.60-5.80); Red Cell Distribution Width 18.6 % (11.0-16.0); White Blood Count 4.6 X10*3/uL (4.8-10.8)
[2023-07-10 07:27] VITALS: BP 140/73; PULSE 73; RESP 16; TEMP 36.4; O2SAT 91
[2023-07-10 07:36] LABS: Glucose, Whole Blood 133 mg/dL (60-115)
[2023-07-10 08:20] LABS: Hepatitis A Antibody IgG REACTIVE (Nonreactive)
[2023-07-10 08:22] LABS: HBS Num1 63.69 mIU/mL (0-7.99); HBc Num1 0.15 S/CO (0.00-0.79); HBsAGNum1 0.35 S/CO (0.00-0.99); Hepatitis B Core Antibody Nonreactive (Nonreactive); Hepatitis B Surface Antigen Negative (Negative); ~HepC Num1 14.35 S/CO (0.00-0.79); ~Hepatitis B Surface Antibody REACTIVE (Nonreactive); ~Hepatitis C Antibody Reactive (Nonreactive)
[2023-07-10] MEDS: 0.9 % Sodium Chloride Flush 3 ML SYRINGE IVFLUSH (08:44)
[2023-07-10] MEDS: Omeprazole 20 MG CAPSULE.DR PO (08:48)
[2023-07-10] MEDS: Ferrous Sulfate 324 MG TABLET.DR PO (08:48)
[2023-07-10] MEDS: methADONE HCl 20 MG/2 ML ORAL.CONC 50 MG PO (08:48)
--- NOTE | 2023-07-10 08:54 | MHC.CLN ---
F/U DIET=DIABETIC 2000 KCALS. ADDED 2 GRAM SODIUM TO ORDER PER MD NOTE. INCREASED NUTRITION NEEDS, PROTEIN, DUE TO STAGE II PRESSURE INJURY TO RIGHT BUTTOCK. ENSURE MAX PROTEIN BID TO PROMOTE WOUND HEALING. SUPPLEMENT PROVIDES 300 KCALS, 60 G PROTEIN. INTAKE APPEARS TO BE ABOUT 50%. FOLLOW FOR PO INTAKE AND WOUND HEALING.
--- NOTE | 2023-07-10 09:37 | MHC.RECOVRN ---
Pts referral sent to [facility]. Pt to present to OTP day after discharge with last dose letter.
--- NOTE | 2023-07-10 11:19 | P.DS_ITS ---
DS: Providers Provider Date of Service: 07/10/23 Date of admission: 07/07/23 02:32 Primary care physician: Unknown Physician Consults: 07/07/23 08:11 Consult to Gastroenterology Routine Consulting Provider: [facility] Gastroenterology Services Reason for consultation: resistant ascites 07/08/23 09:05 Addiction Medicine Routine Consulting Provider: Addiction Covering Reason for consultation: OUD, methadone re-start DS: Diagnosis Discharge Diagnosis (1) Cirrhosis: Status: Acute (2) Ascites: Status: Acute (3) Scrotal edema: Status: Acute (4) Chronic anemia: Status: Acute DS: Summary Hospital Course Hospital Course: Date of Service: 07/07/23 Chief Complaint: abd and scrotal swelling 53-year-old male with past medical history of cirrhosis due to hep C, [id number] diabetes, paroxysmal AFib on Eliquis, comes into the hospital with complaints of abdominal and scrotal swelling. This been progressively worsening over the past 2 weeks worse in the past 5 days. pt denies any abdominal pain, no fever chills, no diarrhea constipation, no urinary symptoms,no headache or change in vision. He also states that he is still awaiting GI evalution op. Of note patient was admitted in May for the same, he was diuresed aggressively as well as had to paracentesis and was sent home. On arrival to the ED patient hemodynamically stable Labs are significant for hemoglobin of 8.7 which is stable from recent labs, total bili of 1.6, otherwise unremarkable Patient will be admitted for further management. Hospital course: 53yo M with HCV cirrhosis with resistant ascites, pAF presented with massive ascites/anasarca underwent therapeutic paracentesis 07/07 with 11.3L fluid removed with albumin given, patient treated with IV furosemide 80mg bid, and PO spironolactone 100mg bid, low-Na diet, with good response at present patient is hemodynamically stable, asymptomatic with no shortness of breath, ambulating with no lightheadedness or dizziness he has recommended outpatient follow-up with Dr. Romero and rec. outpt paracentesis q2wk anemia due to cirrhosis + iron deficiency , hematocrit is stable continue iron supplement, stool guaiac not checked, patient is adamant to be discharged home therefore recommend close outpatient follow-up with Gastroenterology. thrombocytopenia due to cirrhosis no bleeding noted decomp cirrhosis due to HCV recommend outpatient Gastroenterology follow-up, AFP level pending OUD - Addiction Medicine consulted and restarted methadone, hepatitis-C reactive. paroxysmal AF - not on AC due to bleeding risk DM2 resume Trulicity and follow diabetic diet Time Spent with Patient Time attestation: Total time managing care of this patient today ____ minutes. Discharge coordination time: Greater than 30 minutes Quality: Safe Use of Opioids Does Pt have an Active Cancer Diagnosis on the Problem List?: No Quality: Stroke Does the patient have a stroke diagnosis?: No Physical Exam Vital Signs: Vital Signs: Last Vital Signs Temp 97.5 F 07/10/23 07:27 Pulse 73 07/10/23 07:27 Resp 16 07/10/23 07:27 BP 140/73 H 07/10/23 07:27 Pulse Ox 91 L 07/10/23 07:27 O2 Del Method Room Air 07/10/23 07:27 BMI result Body Mass Index 45.6 Const: Other: Gen: in no acute distress HEENT: sclera anicteric, moist mucus membranes Neck: supple Lungs: clear to auscultation bilaterally Heart: regular rate and rhythm, no murmurs Abd: soft, distended, no fluid leak at paracentesis site, obese, nontender Ext: bilateral leg edema Skin: warm/well-perfused Neuro: alert and oriented x3, no asterixis Psych: appropriate affect DS: Data Data Completed and Pending Completed studies during hospitalization [Text1]: Procedures Drainage of Peritoneal Cavity, Percutaneous Approach (05/12/23) Transfusion of Nonautologous Red Blood Cells into Peripheral Vein, Percutaneous Approach (05/12/23) Labs on day of discharge: Laboratory Results - last 24 hr 07/09/23 07/09/23 07/09/23 04:56 11:34 15:42 WBC RBC Hgb Hct MCV MCH MCHC RDW Plt Count MPV Absolute Nucleated RBC Nucleated RBC % (auto) Sodium Potassium Chloride Carbon Dioxide Anion Gap BUN Creatinine Estim Creat Clear Calc Estimated GFR POC Glucose 151 H 161 H Random Glucose Calcium Magnesium C. difficile Tox B Gene Hepatitis A IgG Ab REACTIVE Hep Bs Antigen Negative Hep Bs Antibody REACTIVE Hep B Core Total Ab Nonreactive Hepatitis C Ab (EIA) Reactive H Blood Type Antibody Screen 07/09/23 07/09/23 07/10/23 18:30 20:50 05:44 WBC 4.6 L RBC 3.23 L Hgb 8.1 L Hct 26.7 L MCV 82.7 MCH 25.1 L MCHC 30.3 L RDW 18.6 H Plt Count 75 L MPV 9.9 Absolute Nucleated RBC 0.000 Nucleated RBC % (auto) 0.0 Sodium 139 Potassium 3.5 Chloride 103 Carbon Dioxide 28 Anion Gap 12 BUN 11 Creatinine 0.93 Estim Creat Clear Calc 122.6 Estimated GFR > 60 POC Glucose 182 H Random Glucose 139 H Calcium 8.3 L Magnesium 1.6 C. difficile Tox B Gene NEGATIVE Hepatitis A IgG Ab Hep Bs Antigen Hep Bs Antibody Hep B Core Total Ab Hepatitis C Ab (EIA) Blood Type O Positive Antibody Screen NEGATIVE 07/10/23 07:32 WBC RBC Hgb Hct MCV MCH MCHC RDW Plt Count MPV Absolute Nucleated RBC Nucleated RBC % (auto) Sodium Potassium Chloride Carbon Dioxide Anion Gap BUN Creatinine Estim Creat Clear Calc Estimated GFR POC Glucose 133 H Random Glucose Calcium Magnesium C. difficile Tox B Gene Hepatitis A IgG Ab Hep Bs Antigen Hep Bs Antibody Hep B Core Total Ab Hepatitis C Ab (EIA) Blood Type Antibody Screen Discharge Plan Discharge Anticipated Discharge Date/Time: 07/10/23 09:35 Patient Disposition: Home Health Service Discharge Diagnosis: resistant ascites, decompensated cirrhosis, opioid use disorder Referrals: Physician,Unknown J [Primary Care Provider] - 1 Week Nichole Romero MD [Physician] - 1 Week Discharge Medications: New spironolactone [Aldactone] 100 mg tablet 100 mg PO BID Qty: 60 0RF furosemide [Lasix] 80 mg tablet 80 mg PO BID Qty: 60 0RF Ensure Complete 0.1 gram-1.18 kcal/mL liquid 1 ea PO BID Qty: 94615 0RF Continued Trulicity 0.75 mg/0.5 mL pen injector 0.75 mg subcut TU ferrous sulfate [Iron (ferrous sulfate)] 325 mg (65 mg iron) tablet 325 mg PO DAILY Qty: 30 0RF omeprazole 20 mg capsule,delayed release(DR/EC) 20 mg PO DAILY Qty: 30 0RF loperamide 2 mg Capsule 2 mg PO Q4H PRN (Reason: Diarrhea) Qty: 10 0RF Discontinued furosemide [Lasix] 20 mg tablet 20 mg PO DAILY Qty: 30 0RF spironolactone 50 mg tablet 50 mg PO DAILY Qty: 30 0RF Discharge Orders: Discharge Order (Routine); Ordered 07/10/23 Ordered By: Ethel Saldana Diet: Diabetic diet Activity on Discharge: As tolerated Stand Alone Forms: Patient Portal Discharge page Care Plan Goals: Continue to take Lasix and Aldactone as ordered Follow-up with Dr. Martinez for paracentesis every 2 week Take Ensure twice daily Follow 2 g sodium diet outpt. methadone clinic Health Concerns: Take all home medications as prescribed Plan of Treatment: Outpatient follow-up with [facility] [employer] supervisor Dr. ROMERO call for appointment Assessment: as above
[2023-07-10 11:21] LABS: Glucose, Whole Blood 135 mg/dL (60-115)
--- NOTE | 2023-07-10 11:58 | MHC.CM.PN ---
pt going homeby [facility] unable to get a vna to deliver methadone for pt
[2023-07-12 12:43] LABS: Alpha Fetoprotein 1.3 ng/mL (<6.1)
[2023-07-16 15:08] LABS: HCV Log PCR 4.26 Log IU/mL (NOT DETECTED); HepC Viral Load 18300 IU/mL (NOT DETECTED)
== END 2023-07-10 14:13 | disposition home or self-care (01) ==
LOC: HO.ED 07-07 03:17 → HO.EDOVER 07-07 03:56 → HO.S3 07-07 11:51
PROVIDERS: Family Medicine; Internal Medicine Gastroenterology; Radiology Diagnostic Radiology; Admitting Provider Internal Medicine; Emergency Provider Emergency Medicine; Visit Provider Hospitalist
PROC: 0W9G3ZZ Drainage of Peritoneal Cavity, Percutaneous Approach (ICD-10-PCS; principal; 2023-07-07 09:30)
DX: K74.69 Other cirrhosis of liver (principal); R18.8 Other ascites; D69.59 Other secondary thrombocytopenia; D63.8 Anemia in other chronic diseases classified elsewhere; D50.9 Iron deficiency anemia, unspecified; E11.9 Type 2 diabetes mellitus without complications; F11.23 Opioid dependence with withdrawal; E87.6 Hypokalemia; I48.0 Paroxysmal atrial fibrillation; Z86.19 Personal history of other infectious and parasitic diseases; Z79.01 Long term (current) use of anticoagulants; Z79.85 Long-term (current) use of injectable non-insulin antidiabetic drugs; Z79.899 Other long term (current) drug therapy
CPT/HCPCS: 36415; 49083; 71045; 76700; 80048; 80053; 80076; 82105; 82947; 83690; 83735; 83880; 85027; 85610; 86704; 86706; 86708; 86803; 86850; 86900; 86901; 87340; 87493; 87522; 93975; 97161; 99285; C1729; J1170; J1940; P9047

== ENCOUNTER 2023-07-07 02:32 | Outpatient (BNV) | payer MEDICAID, SELFPAY | END 2023-07-07 09:55 | PROVIDERS: Admitting Provider Internal Medicine; Emergency Provider Emergency Medicine; Visit Provider Radiology Diagnostic Radiology | DX: R18.8 Other ascites (principal) | CPT/HCPCS: 49083 ==

== ENCOUNTER → 2023-07-07 02:32 | Outpatient (BNV) | payer MEDICAID, SELFPAY | PROVIDERS: Admitting Provider Internal Medicine; Emergency Provider Emergency Medicine; Visit Provider Internal Medicine Gastroenterology | DX: K74.60 Unspecified cirrhosis of liver (principal); R18.8 Other ascites; N50.89 Other specified disorders of the male genital organs; D64.9 Anemia, unspecified | CPT/HCPCS: 99232 ==

== ENCOUNTER → 2023-07-07 02:32 | Outpatient (BNV) | payer MEDICAID, OTHER, SELFPAY | PROVIDERS: Admitting Provider Internal Medicine; Emergency Provider Emergency Medicine; Visit Provider Internal Medicine | DX: K74.60 Unspecified cirrhosis of liver (principal); R18.8 Other ascites; N50.89 Other specified disorders of the male genital organs; D64.9 Anemia, unspecified | CPT/HCPCS: 99223; 99232; 99239; 99499 ==

== ENCOUNTER → 2023-07-07 02:32 | Outpatient (BNV) | payer OTHER, SELFPAY | PROVIDERS: Admitting Provider Internal Medicine; Emergency Provider Emergency Medicine; Visit Provider Nurse Practitioner Psychiatric/Mental Health | DX: F11.20 Opioid dependence, uncomplicated (principal) | CPT/HCPCS: 99222; 99232 ==

== ENCOUNTER 2023-08-05 03:07 | Inpatient (IN) | payer MEDICAID, SELFPAY ==
--- NOTE | 2023-08-05 | ECG_ITS ---
Test Reason : ASCITES Blood Pressure : / mmHG Vent. Rate : 091 BPM Atrial Rate : 091 BPM P-R Int : 150 ms QRS Dur : 100 ms QT Int : 400 ms P-R-T Axes : 049 -12 039 degrees QTc Int : 492 ms Normal sinus rhythm Low voltage QRS Intra-ventricular conduction delay Left axis deviation Abnormal ECG When compared with ECG of 12-MAY-2023 18:50, No significant change was found Referred By: Generic ED Physician Electronically Signed By:DASIA DE LA FUENTE MD
--- NOTE | ~2023-08-05 | US_ITS ---
ULTRASOUND GUIDED PARACENTESIS HISTORY: Ascites. Risks, benefits and possible complications were discussed with the patient and consent was obtained. Timeout was performed. Ultrasound survey demonstrated a safe pocket of ascitic fluid in the right lower quadrant, and the overlying skin was marked, prepped, and draped in sterile fashion. 1% buffered lidocaine was used to anesthetize the superficial skin, subcutaneous tissues, and peritoneal lining. Using ultrasound guidance, a 5 fr catheter was placed into the ascitic pocket. 11.7 liters of yellow fluid was removed passively. The catheter was then removed. Bandaging/dressing was applied. A few disability representative images from before and after the examination were obtained. No immediate complications. The procedure was performed by Clifton Connolly PA-C and supervised by Dr. Reyes. US/US paracentesis abd w/image IMPRESSION: Ultrasound-guided paracentesis as described above, without immediate complication. Drainage 11.7 L of yellowish ascitic fluid.
--- NOTE | ~2023-08-05 | XR_ITS ---
EXAMINATION: XR CHEST CLINICAL INFORMATION: Shortness of breath COMPARISON: 07/07/2023 TECHNIQUE: Frontal view of the chest was obtained. FINDINGS: Redemonstrated right hemidiaphragm elevation. Adjacent streaky right basilar opacity favors atelectasis. Bilateral peribronchial thickening is suspected. No evidence of pneumothorax or significant pleural effusion. The cardiomediastinal contour is unremarkable. No acute osseous findings are seen. XR/XR chest 1V IMPRESSION: Redemonstrated right hemidiaphragm elevation with adjacent streaky basilar opacity favoring atelectasis. Bilateral peribronchial thickening suggesting airways disease.
[2023-08-05 03:24] VITALS: BP 149/73; PULSE 99; O2SAT 100
[2023-08-05 03:27] VITALS: BP 149/73; PULSE 99; RESP 18; TEMP 37.3; O2SAT 100; BMI 47.3
[2023-08-05 03:33] VITALS: BP 149/73; PULSE 99; RESP 18; TEMP 37.3; O2SAT 100
--- NOTE | 2023-08-05 03:34 | PC.NURSE ---
Pt ca&ox4, no signs of distress. Pt reports 8/10 abdm, testicle, legs, and feet pain. Plan of care ongoing.
--- NOTE | 2023-08-05 05:10 | PC.NURSE ---
Provider with pt. Pt requested and given blanket. Plan of care ongoing
--- NOTE | 2023-08-05 05:13 | ED.GENADULT ---
HPI - General Adult General Chief complaint: General Medical Stated complaint: Fluid Retention Time Seen by Provider: 08/05/23 04:53 Source: patient Mode of arrival: ambulatory Limitations: no limitations History of Present Illness HPI narrative: Patient comes to the emergency room complaining of worsening anasarca. Patient was discharged approximately a month ago, patient complaining of abdominal distension due to fluids. Patient states that his abdomen and his scrotum are so weak that he can not get out of bed by himself, he has to wait for someone to be at home to lift him up. Last time that he was here, patient was admitted and 10 L where removed. Patient has fever chills. Related Data Home Medications Medication Instructions Recorded Confirmed dulaglutide 0.75 mg/0.5 mL 0.75 mg subcut TU 05/12/23 05/12/23 subcutaneous pen injector (Trulicity) Previous Rx's Medication Instructions Recorded ferrous sulfate 325 mg (65 mg 325 mg PO DAILY #30 tabs 05/18/23 iron) tablet (Iron (ferrous sulfate)) loperamide 2 mg capsule 2 mg PO Q4H PRN Diarrhea #10 caps 05/18/23 omeprazole 20 mg capsule,delayed 20 mg PO DAILY #30 caps 05/18/23 release food supplemt, lactose-reduced 0.1 1 ea PO BID #17,760 mL 07/10/23 gram-1.18 kcal/ mL oral liquid (Ensure Complete) furosemide 80 mg tablet (Lasix) 80 mg PO BID #60 tabs 07/10/23 spironolactone 100 mg tablet 100 mg PO BID #60 tabs 07/10/23 (Aldactone) Allergies Allergy/AdvReac Type Severity Reaction Status Date / Time oxycodone Allergy Itching Verified 05/15/23 08:49 Review of Systems Review of Systems: Constitutional : No Weight loss, No Fever, No Chills, No Night Sweats, No Fatigue, No Malaise ENT/Mouth : No Hearing loss, No Ear Pain, No Nasal Congestion, No Sinus Pain, No Hoarseness, No sore throat, No Rhinorrhea, No Swallowing Difficulty Eyes: No Eye Pain, No Swelling, No Redness, No Foreign Body, No Discharge, No Vision Changes Cardiovascular : No Chest Pain, No SOB, No Dyspnea on Exertion, No Orthopnea, No Edema, No Palpitations Respiratory : No Cough, No Sputum, No Wheezing, No Smoke Exposure, No Dyspnea Gastrointestinal : No Nausea, No Vomiting, No Diarrhea, No Constipation, complaining of abdominal distention due to ascites Genitourinary : Complaining of worsening scrotal edema, anasarca, No Dysuria, No Urinary Frequency, No Hematuria, No Urinary Incontinence, No Urgency, No Flank Pain, No Urinary Flow Changes, No Hesitancy Musculoskeletal : No joint pain, No Myalgias, No Joint Swelling Skin : No Skin Lesions, No rash Neuro : No Weakness, No Numbness, No Paresthesias, No Loss of Consciousness, No Dizziness, No Headache Psych : No Anxiety/Panic, No Depression, No SI/HI/AH/VH, No Social Issues, Heme/Lymph: No Bruising, No Bleeding,No Lymphadenopathy Endocrine : No Polyuria, No Polydipsia, No Temperature Intolerance [facility] Past Medical History Medical History Opioid use disorder Chronic anemia Decompensated hepatic cirrhosis Diabetes mellitus Cirrhosis Social History Social History Household Members: Spouse Housing: Other Housing Other:: intermediate Do you presently have visiting nurse or other home services: No Alcohol intake: former Patient Tobacco Use Status: Never used Tobacco Smoked in Last 30 Days: No Use of substances other than those prescribed or required for medical reasons: Yes Substance Use Type: Heroin and IV Drugs Substance Use Frequency: Chronic Longstanding Advance Directives: Yes Advance Directives on File: Yes Advance Directives Date on File: 07/07/23 service: No Physical Exam ED Vital Signs: Vital Signs - 24 hr 08/05/23 03:27 08/05/23 03:33 Temperature 99.2 F 99.2 F Pulse Rate 99 99 Respiratory Rate 18 18 Blood Pressure 149/73 H 149/73 H Pulse Oximetry 100 100 Oxygen Delivery Method Room Air Room Air BMI result Body Mass Index 47.3 Const Other: Appearance: Alert. Oriented X3. No acute distress. Eyes: Pupils equal, round and reactive to light. ENT: Pharynx normal. Neck: Normal inspection. Neck supple. No lymph nodes noted. No crepitus CVS: Normal heart rate and rhythm. Pulses normal. Normal S1 and S2 Respiratory: No respiratory distress. Breath sounds normal. No Wheezing. No rales Abdomen: Soft and nontender. Patient's abdomen is significantly distended. Ultrasound at bedside shows a large amount of fluid. However, there seems to be approximately 10 cm of tissue before reaching the fluid pocket. : Severe scrotal edema Skin: Skin warm and dry. Normal skin color. Normal skin turgor. Extremities: +4 pitting edema Neuro: Oriented X 3. No motor deficit. No sensory deficit. Moving all extremities. No slurred speech. CN 2 through 12 grossly intact Psych: calm, cooperative, normal affect Course Course Course Narrative: -patient has massive anasarca, amount of fluid seems to be worse than the last time the patient was admitted about a month ago. -patient states that he missed his appointment with Gastroenterology -patient cannot get up due to the weight of his abdomen , scrotum and lower extremities - Medications Administered Generic Name Dose Route Start Last Admin Trade Name Freq PRN Reason Stop Dose Admin Furosemide 80 mg 08/05/23 06:15 08/05/23 06:51 Furosemide 100 Mg/10 Ml Vial IVPUSH 80 mg Q12H MARYANN Administration Protocol Procedures EJ/Peripheral Line Neck R: Time Out Performed: Yes Skin Cleansed in Sterile Fashion: Yes Size (gauge): 18 IV Secured and Dressing Applied: Yes Patient Tolerated Procedure: well Additional Comments: This was a right IJ single-lumen Medical Decision Making Medical Decision Making [facility] Narrative: -my interpretation of labs, hematology and chemistry are at baseline. -patient will likely need diuresis -I discussed the patient with Dr. Ellis, patient being admitted -IR consult has been placed for paracentesis Differential Diagnosis Differential Diagnoses: The differential diagnosis associated with the presentation includes (Ascites, cirrhosis, CHF) Admission/Observation Consideration of admission/observation: Escalation of care including admission/observation considered Consult Healthcare Provider Management of the patient was discussed with: Hospitalist Lab Data MDM Lab Attestation statement: I reviewed the patient's lab results. 08/05/23 05:25 08/05/23 05:25 Labs: Lab Results 08/05/23 Range/Units 05:25 WBC 5.2 (4.8-10.8) X10*3/uL RBC 3.46 L (4.60-5.80) X10*6/uL Hgb 8.4 L (14.0-18.0) g/dl Hct 27.8 L (42.0-52.0) % MCV 80.3 (80.0-98.0) fL MCH 24.3 L (27.0-33.0) pg MCHC 30.2 L (31.0-36.0) g/dl RDW 16.6 H (11.0-16.0) % Plt Count 107 L D (160-400) X10*3/uL MPV 10.5 (9.4-12.4) fL Immature Gran % (Auto) 0.4 (0.0-0.4) % Neut % (Auto) 66.0 (45-73) % Lymph % (Auto) 16.5 L (20-40) % [place] % (Auto) 12.0 H (2-11) % Eos % (Auto) 4.3 H (0-4) % Baso % (Auto) 0.8 (0-2) % Lymph # (Auto) 0.9 L (1.2-4.9) X10*3/uL [place] # (Auto) 0.6 (0.1-1.2) X10*3/uL Eos # (Auto) 0.2 (0.0-0.4) X10*3/uL Baso # (Auto) 0.0 (0.0-0.2) X10*3/uL Abs Immat Gran (auto) 0.02 (0.00-0.03) X10*3/uL Absolute Neuts (auto) 3.4 (2.0-8.3) x10*3/uL Absolute Nucleated RBC 0.000 (0.0-0.012) X10*3/uL Nucleated RBC % (auto) 0.0 (0.0-0.2) /100WBC PT 15.5 H (11.1-13.3) SEC INR 1.3 H (0.9-1.1) APTT 33.3 (26.0-36.4) SEC Sodium 135 (135-145) mmol/L Potassium 4.5 D (3.3-5.1) mmol/L Chloride 104 (96-108) mmol/L Carbon Dioxide 22 (22-29) mmol/L Anion Gap 14 (12-20) BUN 14 (9-16) mg/dL Creatinine 0.85 (0.5-1.4) mg/dL Estim Creat Clear Calc 136.9 Estimated GFR > 60 Random Glucose 175 H (60-115) mg/dL Calcium 8.6 (8.4-10.2) mg/dL Total Bilirubin 1.3 H (0.0-1.0) mg/dL Direct Bilirubin 0.5 (0.0-0.5) mg/dL AST 59 H (5-37) U/L ALT 32 (0-40) U/L Alkaline Phosphatase 65 (39-117) U/L Troponin I High Sens 3.1 (<3.5-35.0) ng/L B-Natriuretic Peptide 121 H (<100) pg/mL Total Protein 7.0 (6.5-8.0) g/dL Albumin 3.0 L (3.5-5.0) g/dL Critical Care Time Critical Care Time Critical Care Time: Yes Total Critical Care Time: 60 Attestation: I have personally provided critical care time. Time includes review of lab data, radiology results, discussion with consultants, and monitoring for potential decompensation. Intervention performed as documented. Discharge Plan Discharge Clinical Impression: Anasarca Patient Disposition: Admitted As Inpatient
[2023-08-05 05:30] LABS: MANUAL DIFF FLAG NO
[2023-08-05 05:31] LABS: Basophils Percent Auto 0.8 % (0-2); Eosinophils Absolute Auto 0.2 X10*3/uL (0.0-0.4); Eosinophils Percent Auto 4.3 % (0-4); Hematocrit 27.8 % (42.0-52.0); Hemoglobin 8.4 g/dl (14.0-18.0); Imm Gran Abs Auto 0.02 X10*3/uL (0.00-0.03); Imm Gran Pct Auto 0.4 % (0.0-0.4); Lymphocytes Absolute Auto 0.9 X10*3/uL (1.2-4.9); Lymphocytes Percent Auto 16.5 % (20-40); Mean Corpuscular HGB Conc 30.2 g/dl (31.0-36.0); Mean Corpuscular Hemoglobin 24.3 pg (27.0-33.0); Mean Corpuscular Volume 80.3 fL (80.0-98.0); Mean Platelet Volume 10.5 fL (9.4-12.4); Monocytes Absolute Auto 0.6 X10*3/uL (0.1-1.2); Neutrophils Absolute Auto 3.4 x10*3/uL (2.0-8.3); Platelet Count 107 X10*3/uL (160-400); Red Blood Count 3.46 X10*6/uL (4.60-5.80); Red Cell Distribution Width 16.6 % (11.0-16.0); White Blood Count 5.2 X10*3/uL (4.8-10.8)
[2023-08-05 05:42] LABS: INTERNATIONAL NORM RATIO 1.3 (0.9-1.1); Prothrombin Time 15.5 SEC (11.1-13.3)
[2023-08-05 05:45] LABS: Partial Thromboplastin Time 33.3 SEC (26.0-36.4)
[2023-08-05 05:50] LABS: B Type Natriuretic Peptide 121 pg/mL (<100); Troponin-I High Sensitivity 3.1 ng/L (<3.5-35.0)
[2023-08-05 05:51] LABS: Alanine Aminotransferase 32 U/L (0-40); Alkaline Phosphatase 65 U/L (39-117); Anion Gap 14 (12-20); Aspartate Amino Transferase 59 U/L (5-37); Bilirubin Direct 0.5 mg/dL (0.0-0.5); Bilirubin Total 1.3 mg/dL (0.0-1.0); Blood Urea Nitrogen 14 mg/dL (9-16); Calcium 8.6 mg/dL (8.4-10.2); Carbon Dioxide 22 mmol/L (22-29); Chloride 104 mmol/L (96-108); Creatinine Clr Calc Pharmacy 136.9; Estimated Glomerular Filt Rate > 60; Glucose Random 175 mg/dL (60-115); Potassium 4.5 mmol/L (3.3-5.1); Sodium 135 mmol/L (135-145)
--- NOTE | 2023-08-05 06:04 | PC.NURSE ---
IV access attempted w/o success. sr. director also attempted. Pt requested and given blanket. plan of care ongoing.
--- NOTE | 2023-08-05 06:14 | PM.IMHP ---
History of Present Illness Date of Service: 08/05/23 Chief Complaint: Abdominal swelling This is a 53-year-old male with pertinent history of cirrhosis due to hep C, fhi-uohmsrc-yxammimvc diabetes mellitus, paroxysmal atrial fibrillation not on anticoagulation who presents to the emergency department for evaluation of abdominal and scrotal swelling. Patient was recently admitted and discharged on 07/20 with decompensated cirrhosis with ascites after he underwent paracentesis during hospitalization. He was set up with outpatient paracentesis every 2 weeks. Patient states he missed his outpatient paracentesis appointment. Patient states the swelling has been progressive over the last 6-7 days. Significant progressive swelling noted over the abdomen and scrotum. No abdominal pain or fever or chills. About 11.3 L drained during his last hospitalization which was 4 weeks ago. No chest discomfort, palpitations, shortness of breath, changes in urinary or bowel habits. In the emergency department, significant abdomen and scrotal swelling seen Review of Systems Constitutional: Constitutional: Reports fatigue and Reports lethargy Cardiovascular: Cardiovascular: Reports no additional cardiovascular complaints Respiratory: Respiratory: Reports no additional respiratory complaints Gastrointestinal: Comments: Abdominal swelling Genitourinary: Comments: Scrotal swelling Endocrine: Endocrine: Reports fatigue [facility] Medical History Opioid use disorder Chronic anemia Decompensated hepatic cirrhosis Diabetes mellitus Cirrhosis Pertinent family history: No family history of early CAD Social History Household Members: Spouse Housing: Other Housing Other:: retirement Do you presently have visiting nurse or other home services: No Alcohol intake: former Patient Tobacco Use Status: Never used Tobacco Smoked in Last 30 Days: No Use of substances other than those prescribed or required for medical reasons: Yes Substance Use Type: Heroin and IV Drugs Substance Use Frequency: Chronic Longstanding Advance Directives: Yes Advance Directives on File: Yes Advance Directives Date on File: 07/07/23 service: No Meds Allergies Allergy/AdvReac Type Severity Reaction Status Date / Time oxycodone Allergy Itching Verified 05/15/23 08:49 Home Medications Medication Instructions Recorded Confirmed Last Taken Type dulaglutide 0.75 mg/0.5 mL 0.75 mg subcut TU 05/12/23 05/12/23 Unknown History subcutaneous pen injector (Trulicity) Physical Exam Vital Signs and Narrative: Vital Signs: Last Vital Signs Temp 99.2 F 08/05/23 03:33 Pulse 99 08/05/23 03:33 Resp 18 08/05/23 03:33 BP 149/73 H 08/05/23 03:33 Pulse Ox 100 08/05/23 03:33 O2 Del Method Room Air 08/05/23 03:33 BMI result Body Mass Index 47.3 Middle-aged male lying in bed in mild distress Neck supple Regular rate and rhythm, S1-S2 heard Decreased breath sound at bases Abdomen with significant distension, no tenderness Patient is awake, alert and oriented to self, place, time and person ; no focal motor deficit Scrotal swelling seen bilaterally Psych: Normal mood Bilateral pedal edema Results Labs 08/05/23 05:25 08/05/23 05:25 Labs: Laboratory Results - last 24 hr 08/05/23 05:25 MCV 80.3 MCH 24.3 L MCHC 30.2 L RDW 16.6 H Plt Count 107 L D MPV 10.5 Immature Gran % (Auto) 0.4 Neut % (Auto) 66.0 Lymph % (Auto) 16.5 L [place] % (Auto) 12.0 H Eos % (Auto) 4.3 H Baso % (Auto) 0.8 Lymph # (Auto) 0.9 L [place] # (Auto) 0.6 Eos # (Auto) 0.2 Baso # (Auto) 0.0 Abs Immat Gran (auto) 0.02 Absolute Neuts (auto) 3.4 Absolute Nucleated RBC 0.000 Nucleated RBC % (auto) 0.0 PT 15.5 H INR 1.3 H APTT 33.3 Anion Gap 14 Estim Creat Clear Calc 136.9 Estimated GFR > 60 Random Glucose 175 H Calcium 8.6 Total Bilirubin 1.3 H Direct Bilirubin 0.5 AST 59 H ALT 32 Alkaline Phosphatase 65 B-Natriuretic Peptide 121 H Total Protein 7.0 Albumin 3.0 L Assessment and Plan (1) Anasarca: Status: Acute (2) Cirrhosis: Status: Acute (3) Scrotal edema: Status: Acute (4) Ascites: Status: Acute Plan This is a 53-year-old male with pertinent history of cirrhosis due to hep C, vpv-mfeobik-ufyatqoha diabetes mellitus, paroxysmal atrial fibrillation not on anticoagulation who presents to the emergency department for evaluation of abdominal and scrotal swelling. #. Decompensated cirrhosis with massive ascites. Patient noncompliant with outpatient scheduled paracentesis. Will admit patient and order IR guided paracentesis. Initiating IV diuretics and continue spironolactone. On Nadolol for gastroesophageal variceal hemorrhage prophylaxis. Low-sodium diet #. Epb-ofalaxv-aoloailra diabetes mellitus. Initiating Accu-Cheks with sliding scale insulin #. Normocytic anemia. Hemoglobin above transfusion threshold. On iron supplementation #. Thrombocytopenia due to cirrhosis #. Paroxysmal atrial fibrillation: Not on anticoagulation due to bleeding risk. Rate controlled in the ER Med rec pending DVT prophylaxis: Mechanical. Hold Lovenox for paracentesis Low-salt diet Admit as inpatient and will require two night minimum hospital stay for optimization of volume. Specialist consult pending Time Spent With Patient Time: Total time managing care of this patient today ____ minutes. Quality Stroke Does the patient have a stroke diagnosis?: No VTE Prior VTE?: No VTE Risk Level:: Medical - moderate - high VTE Device Contraindication: N/A - Device Ordered VTE Drug Contraindication: Treatment Not Indicated
[2023-08-05 06:17] VITALS: BP 128/68; PULSE 87; RESP 13; TEMP 36.6; O2SAT 98
--- NOTE | 2023-08-05 06:20 | PC.NURSE ---
Dr Ellis advised unable to get IV access. Requesting lasix in PO form. Plan of care ongoing.
--- NOTE | 2023-08-05 06:22 | PC.NURSE ---
Per Dr. Ellis, Dr. Wolf will place the IV.
[2023-08-05] MEDS: Lidocaine HCl 1 % MPF 5 ML VIAL INFILTRATI (06:44)
[2023-08-05] MEDS: Furosemide 100 MG/10 ML VIAL 80 MG IVPUSH ×2 (06:51→18:12)
--- NOTE | 2023-08-05 06:55 | PC.NURSE ---
Pt medicated per dec. Plan of care ongoing.
--- NOTE | 2023-08-05 07:10 | PC.NURSE ---
Report and hand off given to IRENA Brasher given lido vial to scan when provider enters into mar. Provider administered lido during IV placement.
[2023-08-05 07:57] LABS: Glucose, Whole Blood 163 mg/dL (60-115)
--- NOTE | 2023-08-05 08:08 | PC.NURSE ---
report taken from IRENA Barbosa. pt a&o x4, calm, and cooperative. pt found saturated in urine in bed. bed bath and full bed change given. pt has significant ascites/swelling to abdomen, scrotum, and BL LE. pt asking for wash basin to urinate in due to difficulty to walk to bathroom and urgency to void from lasix that was administered. pt given a bed lee to stand and void in due to no access to wash basin. urine was found all over the floor. pt compliant with placement of morton catheter. Natasha Stapleton NP aware and will order. pt poc taken, pt refusing insulin because he does not take it at home . breakfast provided to pt. all needs met juan luis. plan of care ongoing. awaiting inpatient bed assignment.
--- NOTE | 2023-08-05 09:02 | PC.NURSE ---
attempted to place urinary catheter. unsuccessful as appears to be an anatomy issue. however, pt tolerated well. pt to ambulate to bathroom with standby assist.
[2023-08-05] MEDS: Spironolactone 25 MG TABLET 100 MG PO ×2 (09:10→18:12)
--- NOTE | 2023-08-05 09:38 | PHA.MEDREC ---
Pharmacy Consult ? Medication Reconciliation Pharmacy has completed the medication reconciliation. PATIENT STATES HE HASN'T USED TRULICITY IN AT LEAST 2-3 MONTHS ALTHOUGH HE IS SUPPOSED TO BE ON IT.
--- NOTE | 2023-08-05 10:43 | PM.DS ---
DS: Providers Provider Date of Service: 08/05/23 Date of admission: 08/05/23 06:13 Primary care physician: TIFFANIE Connor DS: Diagnosis Discharge Diagnosis (1) Anasarca: Status: Acute (2) Cirrhosis: Status: Acute (3) Scrotal edema: Status: Acute (4) Ascites: Status: Acute DS: Summary Hospital Course Hospital Course: This is a 53-year-old male with pertinent history of cirrhosis due to hep C, yhv-jugirrm-hrpfuiiwv diabetes mellitus, paroxysmal atrial fibrillation not on anticoagulation who presents to the emergency department for evaluation of abdominal and scrotal swelling. Patient was recently admitted and discharged on 07/20 with decompensated cirrhosis with ascites after he underwent paracentesis during hospitalization. He was set up with outpatient paracentesis every 2 weeks. Patient states he missed his outpatient paracentesis appointment. Patient states the swelling has been progressive over the last 6-7 days. Significant progressive swelling noted over the abdomen and scrotum. No abdominal pain or fever or chills. About 11.3 L drained during his last hospitalization which was 4 weeks ago. No chest discomfort, palpitations, shortness of breath, changes in urinary or bowel habits. In the emergency department, significant abdomen and scrotal swelling seen. Plan was for paracentesis on Monday, patient has declined to wait and wants to leave to go to [facility]. Patient encouraged to stay to be monitored over the weekend as he is at this point hemodynamically stable with stable blood pressure and no hypoxia, but he refused. Patient was told that in the in terms of his condition, he could worsen and could even lead to . Patient reports understanding and wants to leave against medical advice. He is alert oriented x3 and able to make his own decisions coherently. Time Spent with Patient Time attestation: Total time managing care of this patient today ____ minutes. Discharge coordination time: Greater than 30 minutes Quality: Safe Use of Opioids Does Pt have an Active Cancer Diagnosis on the Problem List?: No Quality: Stroke Does the patient have a stroke diagnosis?: No Physical Exam Vital Signs: Vital Signs: Last Vital Signs Temp 97.9 F 08/05/23 06:17 Pulse 87 08/05/23 06:17 Resp 13 08/05/23 06:17 BP 128/68 08/05/23 06:17 Pulse Ox 98 08/05/23 06:17 O2 Del Method Room Air 08/05/23 06:17 BMI result Body Mass Index 47.3 Declined exam DS: Data Data Completed and Pending Completed studies during hospitalization [Text1]: Procedures Drainage of Peritoneal Cavity, Percutaneous Approach (07/07/23) Transfusion of Nonautologous Red Blood Cells into Peripheral Vein, Percutaneous Approach (05/12/23) Labs on day of discharge: Laboratory Results - last 24 hr 08/05/23 08/05/23 05:25 07:53 WBC 5.2 RBC 3.46 L Hgb 8.4 L Hct 27.8 L MCV 80.3 MCH 24.3 L MCHC 30.2 L RDW 16.6 H Plt Count 107 L D MPV 10.5 Immature Gran % (Auto) 0.4 Neut % (Auto) 66.0 Lymph % (Auto) 16.5 L [place] % (Auto) 12.0 H Eos % (Auto) 4.3 H Baso % (Auto) 0.8 Lymph # (Auto) 0.9 L [place] # (Auto) 0.6 Eos # (Auto) 0.2 Baso # (Auto) 0.0 Abs Immat Gran (auto) 0.02 Absolute Neuts (auto) 3.4 Absolute Nucleated RBC 0.000 Nucleated RBC % (auto) 0.0 PT 15.5 H INR 1.3 H APTT 33.3 Sodium 135 Potassium 4.5 D Chloride 104 Carbon Dioxide 22 Anion Gap 14 BUN 14 Creatinine 0.85 Estim Creat Clear Calc 136.9 Estimated GFR > 60 POC Glucose 163 H Random Glucose 175 H Calcium 8.6 Total Bilirubin 1.3 H Direct Bilirubin 0.5 AST 59 H ALT 32 Alkaline Phosphatase 65 Troponin I High Sens 3.1 B-Natriuretic Peptide 121 H Total Protein 7.0 Albumin 3.0 L Discharge Plan Discharge Anticipated Discharge Date/Time: 08/05/23 10:40 Patient Disposition: Left Against Medical Advice Discharge Diagnosis: Ascites scrotal edema Referrals: Melba Rockwell PA [Primary Care Provider] - 1 Week Discharge Medications: Continued ferrous sulfate [Iron (ferrous sulfate)] 325 mg (65 mg iron) tablet 325 mg PO DAILY Qty: 30 0RF nadolol 40 mg tablet 40 mg PO DAILY furosemide 20 mg tablet 80 mg PO BID@0800,1700 spironolactone 50 mg tablet 100 mg PO BID Discharge Orders: Discharge Order (Routine); Ordered 08/05/23 Ordered By: Natasha Stapleton Diet: Advance to usual diet Activity on Discharge: As tolerated Care Plan Goals: Left against medical advice prior to completing or even starting treatment Health Concerns: Ascites Scrotal edema Plan of Treatment: Plan was for paracentesis on Monday, patient has declined to wait and wants to leave to go to [facility]. Patient encouraged to stay to be monitored over the weekend as he is at this point hemodynamically stable with stable blood pressure and no hypoxia, but refused. Patient told that in the in term his condition could worsen in could even lead to . Patient reports understanding and wants to leave against medical advice. He is alert oriented x3 and able to make his own decisions coherently. Assessment: See discharge summary
--- NOTE | 2023-08-05 10:55 | PC.NURSE ---
pt sts he is going to leave AMA due to not being able to get tapped until Monday. Natasha Stapleton NP aware and going to do AMA discharge. pt aware of the risks in leaving.
--- NOTE | 2023-08-05 10:59 | MHC.CM.PN ---
Attempted to meet w/pt to complete CM assessment and d/c planning needs: pt states he is leaving, has a ride and does not have any service needs at home. Review of EMR notes pt is leaving AMA.
--- NOTE | 2023-08-05 11:20 | PM.EVENT ---
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 Decompensated cirrhosis with massive ascites. 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 Initiating IV diuretics and continue spironolactone. On Nadolol for gastroesophageal variceal hemorrhage prophylaxis. Low-sodium diet Gsi-kmdzqqs-risgunqal diabetes mellitus. Initiating Accu-Cheks with sliding scale insulin Normocytic anemia. Hemoglobin above transfusion threshold. On iron supplementation Thrombocytopenia due to cirrhosis Paroxysmal atrial fibrillation Not on anticoagulation due to bleeding risk. Rate controlled in the ER DVT prophylaxis: Mechanical. Hold Lovenox for paracentesis Attending Dr. Yu Low-salt diet Admit as inpatient and will require two night minimum hospital stay for optimization of volume. Specialist consult pending Time Spent With Patient Time: Total time managing care of this patient today ____ minutes.
--- NOTE | 2023-08-05 11:22 | PC.NURSE ---
brought pt discharge paperwork/AMA forms to sign. pt sts he has cooled off now and changed his mind. he wants to stay and is compliant with plan of care. Natasha Stapleton NP aware. pt currently resting quietly on stretcher, sleeping. rr even/unlabored.
--- NOTE | 2023-08-05 12:18 | PC.NURSE ---
called pharmacy for nadolol. awaiting medication to be brought to ED.
--- NOTE | 2023-08-05 12:52 | MHC.CM.PN ---
pt left ama
[2023-08-05 14:09] LABS: Glucose, Whole Blood 136 mg/dL (60-115)
--- NOTE | 2023-08-05 14:09 | MHC.EDTECH ---
gavepatient lunch, stated he would eat it when he was ready to. Took POC it was 136.
--- NOTE | 2023-08-05 14:10 | PC.NURSE ---
poc taken, no insulin coverage needed. pt in bed eating a snack.
--- NOTE | 2023-08-05 14:10 | MHC.EDTECH ---
ambulated with patient to the bathroom, patient used cane and tolerated well. independent using the toilet, needed mild assistance with cleaning afterwards.
--- NOTE | 2023-08-05 14:21 | PC.NURSE ---
nurse to nurse report given to IRENA Whitney. pt awaiting transport to inpatient room.
[2023-08-05 15:06] VITALS: BMI 47.3
[2023-08-05 15:35] VITALS: BP 141/64; PULSE 93; RESP 18; TEMP 37; O2SAT 97
[2023-08-05 16:27] LABS: Glucose, Whole Blood 223 mg/dL (60-115)
[2023-08-05 19:33] VITALS: BP 155/71; PULSE 88; RESP 16; TEMP 36.6; O2SAT 94
[2023-08-05 20:51] LABS: Glucose, Whole Blood 177 mg/dL (60-115)
[2023-08-06 01:05] VITALS: BP 136/67; PULSE 83; RESP 16; TEMP 36.1; O2SAT 94
[2023-08-06 05:29] LABS: MANUAL DIFF FLAG NO
--- NOTE | 2023-08-06 05:33 | PC.NURSE ---
@ 0530 pt in room 376 is refusing to take his 0615 IV push lasix. Pt said that he doesn't want to have to get up and go to the restroom. Pt stated that hejust was able to sleep. Pt asked can he be given Lasix at [address] Ellis was notified and he said okay.
[2023-08-06 05:35] LABS: Basophils Absolute Auto 0.1 X10*3/uL (0.0-0.2); Basophils Percent Auto 0.9 % (0-2); Eosinophils Absolute Auto 0.2 X10*3/uL (0.0-0.4); Hematocrit 29.7 % (42.0-52.0); Hemoglobin 8.7 g/dl (14.0-18.0); Imm Gran Abs Auto 0.01 X10*3/uL (0.00-0.03); Imm Gran Pct Auto 0.2 % (0.0-0.4); Lymphocytes Absolute Auto 0.8 X10*3/uL (1.2-4.9); Lymphocytes Percent Auto 13.9 % (20-40); Mean Corpuscular HGB Conc 29.3 g/dl (31.0-36.0); Mean Corpuscular Hemoglobin 24.3 pg (27.0-33.0); Mean Platelet Volume 10.8 fL (9.4-12.4); Monocytes Absolute Auto 0.6 X10*3/uL (0.1-1.2); Monocytes Percent Auto 10.6 % (2-11); Neutrophils Absolute Auto 3.9 x10*3/uL (2.0-8.3); Neutrophils Percent Auto 71.4 % (45-73); Platelet Count 110 X10*3/uL (160-400); Red Blood Count 3.58 X10*6/uL (4.60-5.80); Red Cell Distribution Width 16.7 % (11.0-16.0); White Blood Count 5.4 X10*3/uL (4.8-10.8)
[2023-08-06 05:48] LABS: Anion Gap 13 (12-20); Blood Urea Nitrogen 13 mg/dL (9-16); Calcium 8.6 mg/dL (8.4-10.2); Carbon Dioxide 23 mmol/L (22-29); Chloride 104 mmol/L (96-108); Creatinine Clr Calc Pharmacy 136.9; Estimated Glomerular Filt Rate > 60; Glucose Random 202 mg/dL (60-115); Potassium 3.9 mmol/L (3.3-5.1); Sodium 136 mmol/L (135-145)
--- NOTE | 2023-08-06 07:05 | PC.NURSE ---
Per nursing report, Pt has been refusing all insulin.
--- NOTE | 2023-08-06 07:19 | PC.NURSE ---
nursing staff unable to place F/C for fluid management r/t swelling. Pt states he is willing to accept to try to place f/c later this AM.
[2023-08-06 07:43] VITALS: BP 135/67; PULSE 88; RESP 18; TEMP 36.7; O2SAT 94
[2023-08-06 07:51] LABS: Glucose, Whole Blood 186 mg/dL (60-115)
[2023-08-06] MEDS: Spironolactone 25 MG TABLET 100 MG PO ×2 (08:27→17:04)
[2023-08-06] MEDS: Ferrous Sulfate 324 MG TABLET.DR PO (08:28)
[2023-08-06] MEDS: Furosemide 100 MG/10 ML VIAL 80 MG IVPUSH (08:28)
[2023-08-06] MEDS: 0.9 % Sodium Chloride Flush 3 ML SYRINGE IVFLUSH ×4 (08:28→20:20)
--- NOTE | 2023-08-06 09:56 | HO.PM.IMPN ---
Subjective Subjective Date of Service: 08/06/23 Review of Systems Follow up ascites no abd pain, nausea or vomiting Physical Exam Vital Signs: Vital Signs: Last Vital Signs Temp 98.0 F 08/06/23 07:43 Pulse 88 08/06/23 07:43 Resp 18 08/06/23 07:43 BP 135/67 08/06/23 07:43 Pulse Ox 94 08/06/23 07:43 O2 Del Method Room Air 08/06/23 07:43 BMI result Body Mass Index 47.3 Appearing in no acute distress neck is supple no lymphadenopathy, no JVD noted lung sounds are clear to auscultation heart regular rate rhythm, clear S1, S2 positive bowel sounds, abdomen is soft, nontender, large abdomen neuro patient is alert x3, no focal deficits Objective Data Active Medications Acetaminophen (Acetaminophen 325 Mg Tablet) 650 mg PO Q6H PRN PRN Reason: Pain, Mild (Pain Scale 1-3) Dextrose (Dextrose 50 % 25 Gm/50 Ml Syringe) 25 gm IVPUSH Q15M PRN; Protocol PRN Reason: per Hypoglycemia Standing Ord. Ferrous Sulfate (Ferrous Sulfate 324 Mg Tablet.Dr) 324 mg PO DAILY [facility] Last Admin: 08/06/23 08:28 Dose: 324 mg Documented By: LINO Furosemide (Furosemide 100 Mg/10 Ml Vial) 80 mg IVPUSH Q12H [facility]; Protocol Last Admin: 08/06/23 08:28 Dose: 80 mg Documented By: LINO Glucose (Glucose Gel 15 Gm Gel..Gram.) 15 gm PO Q15M PRN; Protocol PRN Reason: per Hypoglycemia Standing Ord. Insulin Human Lispro (Insulin Lispro 100 Unit/Ml 3 Ml Vial) 0 unit SUBCUT QIDACHS [facility]; Protocol Last Admin: 08/06/23 07:54 Dose: Not Given Documented By: LINO Non-Admin Reason: Patient Refused Melatonin (Melatonin 3 Mg Tablet) 6 mg PO BEDTIME PRN PRN Reason: Insomnia Nadolol (Nadolol 40 Mg Tablet) 40 mg PO DAILY [facility]; Protocol Last Admin: 08/06/23 08:28 Dose: 40 mg Documented By: LINO Ondansetron HCl (Ondansetron Hcl 4 Mg/2 Ml Vial) 4 mg IVPUSH Q8H PRN PRN Reason: Nausea and Vomiting Sodium Chloride (0.9 % Sodium Chloride Flush 3 Ml Syringe) 3 ml IVFLUSH QSHIFT [facility] Last Admin: 08/06/23 08:28 Dose: 3 ml Documented By: LINO Spironolactone (Spironolactone 25 Mg Tablet) 100 mg PO BID@0900,1800 [facility]; Protocol Last Admin: 08/06/23 08:27 Dose: 100 mg Documented By: LINO Labs 08/06/23 05:23 08/06/23 05:23 Labs: Laboratory Results - last 24 hr 08/05/23 08/05/23 08/05/23 14:05 16:23 20:46 MCV MCH MCHC RDW Plt Count MPV Immature Gran % (Auto) Neut % (Auto) Lymph % (Auto) [place] % (Auto) Eos % (Auto) Baso % (Auto) Lymph # (Auto) [place] # (Auto) Eos # (Auto) Baso # (Auto) Abs Immat Gran (auto) Absolute Neuts (auto) Absolute Nucleated RBC Nucleated RBC % (auto) Anion Gap Estim Creat Clear Calc Estimated GFR POC Glucose 136 H 223 H 177 H Random Glucose Calcium 08/06/23 08/06/23 05:23 07:46 MCV 83.0 MCH 24.3 L MCHC 29.3 L RDW 16.7 H Plt Count 110 L MPV 10.8 Immature Gran % (Auto) 0.2 Neut % (Auto) 71.4 Lymph % (Auto) 13.9 L [place] % (Auto) 10.6 Eos % (Auto) 3.0 Baso % (Auto) 0.9 Lymph # (Auto) 0.8 L [place] # (Auto) 0.6 Eos # (Auto) 0.2 Baso # (Auto) 0.1 Abs Immat Gran (auto) 0.01 Absolute Neuts (auto) 3.9 Absolute Nucleated RBC 0.000 Nucleated RBC % (auto) 0.0 Anion Gap 13 Estim Creat Clear Calc 136.9 Estimated GFR > 60 POC Glucose 186 H Random Glucose 202 H Calcium 8.6 Assessment and Plan (1) Ascites: Status: Acute Plan This is a 53-year-old male with pertinent history of 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 Decompensated cirrhosis with massive ascites. Patient noncompliant with outpatient scheduled paracentesis, patient initially wanted to leave AMA this morning but changed his mind plan for IR guided paracentesis on Monday as no IR in application spec or available over the weekend. Initiating IV diuretics and continue spironolactone. On Nadolol for gastroesophageal variceal hemorrhage prophylaxis. Low-sodium diet Xbz-utcxuuk-ztajxtami diabetes mellitus. Initiating Accu-Cheks with sliding scale insulin Normocytic anemia. Hemoglobin above transfusion threshold. On iron supplementation Thrombocytopenia due to cirrhosis Paroxysmal atrial fibrillation Not on anticoagulation due to bleeding risk. Rate controlled in the ER DVT prophylaxis: Mechanical. Hold Lovenox for paracentesis Attending Dr. Yu Low-salt diet Admit as inpatient and will require two night minimum hospital stay for optimization of volume. Specialist consult pending Time Spent With Patient Time: Total time managing care of this patient today ____ minutes. Quality Stroke Does the patient have a stroke diagnosis?: No VTE Prior VTE?: No VTE Risk Level:: Medical - moderate - high VTE Device Contraindication: N/A - Device Ordered VTE Drug Contraindication: Treatment Not Indicated
--- NOTE | 2023-08-06 11:13 | PC.NURSE ---
Refusing F/C at this time.
[2023-08-06 11:30] LABS: Glucose, Whole Blood 167 mg/dL (60-115)
[2023-08-06 15:30] VITALS: BP 122/63; PULSE 60; RESP 17; TEMP 36.3; O2SAT 96
[2023-08-06 16:11] LABS: Glucose, Whole Blood 152 mg/dL (60-115)
[2023-08-06 19:32] VITALS: BP 142/79; PULSE 70; RESP 16; TEMP 36.4; O2SAT 98
[2023-08-06 20:26] LABS: Glucose, Whole Blood 122 mg/dL (60-115)
--- NOTE | 2023-08-07 00:26 | PC.NURSE ---
Pt refused 20:00 dose of IV push lasix - stated he wanted to take it earlier with his spironolactone like he does at home to avoid urinating late at night. RN attempted to flush pt IV in R EJ, IV occluded. Pt refusing to have another IV placed at this time. aware.
[2023-08-07 04:00] VITALS: BP 139/63; PULSE 66; RESP 16; TEMP 36.7; O2SAT 97
[2023-08-07 07:06] VITALS: BP 128/73; PULSE 68; RESP 18; TEMP 36.6; O2SAT 93
--- NOTE | 2023-08-07 08:27 | HO.PM.IMPN ---
Subjective Subjective Date of Service: 08/07/23 Review of Systems Follow up ascites no abd pain, nausea or vomiting Physical Exam Vital Signs: Vital Signs: Last Vital Signs Temp 97.9 F 08/07/23 07:06 Pulse 68 08/07/23 07:06 Resp 18 08/07/23 07:06 BP 128/73 08/07/23 07:06 Pulse Ox 93 08/07/23 07:06 O2 Del Method Room Air 08/07/23 07:06 BMI result Body Mass Index 47.3 Appearing in no acute distress lung sounds are clear to auscultation heart regular rate rhythm, clear S1, S2 positive bowel sounds, abdomen is soft, nontender, large abdomen neuro patient is alert x3, no focal deficits Objective Data Active Medications Acetaminophen (Acetaminophen 325 Mg Tablet) 650 mg PO Q6H PRN PRN Reason: Pain, Mild (Pain Scale 1-3) Dextrose (Dextrose 50 % 25 Gm/50 Ml Syringe) 25 gm IVPUSH Q15M PRN; Protocol PRN Reason: per Hypoglycemia Standing Ord. Ferrous Sulfate (Ferrous Sulfate 324 Mg Tablet.Dr) 324 mg PO DAILY [facility] Last Admin: 08/06/23 08:28 Dose: 324 mg Documented By: LINO Furosemide (Furosemide 100 Mg/10 Ml Vial) 80 mg IVPUSH Q12H [facility]; Protocol Last Admin: 08/06/23 20:16 Dose: Not Given Documented By: DERICK Non-Admin Reason: Patient Refused Glucose (Glucose Gel 15 Gm Gel..Gram.) 15 gm PO Q15M PRN; Protocol PRN Reason: per Hypoglycemia Standing Ord. Insulin Human Lispro (Insulin Lispro 100 Unit/Ml 3 Ml Vial) 0 unit SUBCUT QIDACHS [facility]; Protocol Last Admin: 08/06/23 20:19 Dose: Not Given Documented By: DERICK Non-Admin Reason: No Insulin Coverage Melatonin (Melatonin 3 Mg Tablet) 6 mg PO BEDTIME PRN PRN Reason: Insomnia Nadolol (Nadolol 40 Mg Tablet) 40 mg PO DAILY [facility]; Protocol Last Admin: 08/06/23 08:28 Dose: 40 mg Documented By: LINO Ondansetron HCl (Ondansetron Hcl 4 Mg/2 Ml Vial) 4 mg IVPUSH Q8H PRN PRN Reason: Nausea and Vomiting Sodium Chloride (0.9 % Sodium Chloride Flush 3 Ml Syringe) 3 ml IVFLUSH QSHIFT [facility] Last Admin: 08/06/23 20:20 Dose: 3 ml Documented By: DERICK Spironolactone (Spironolactone 25 Mg Tablet) 100 mg PO BID@0900,1800 [facility]; Protocol Last Admin: 08/06/23 17:04 Dose: 100 mg Documented By: LINO Labs 08/06/23 05:23 08/06/23 05:23 Labs: Laboratory Results - last 24 hr 08/06/23 08/06/23 08/06/23 11:21 16:07 20:19 POC Glucose 167 H 152 H 122 H Assessment and Plan (1) Ascites: Status: Acute Plan This is a 53-year-old male with pertinent history of 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 Decompensated cirrhosis with massive ascites. Patient noncompliant with outpatient scheduled paracentesis, patient initially wanted to leave AMA this morning but changed his mind Initiating IV diuretics and continue spironolactone. On Nadolol for gastroesophageal variceal hemorrhage prophylaxis. Low-sodium diet plan for IR guided paracentesis Uye-qreehkf-ptfoxurmk diabetes mellitus. SS, ada diet Normocytic anemia. Hemoglobin above transfusion threshold. On iron supplementation Thrombocytopenia due to cirrhosis Paroxysmal atrial fibrillation Not on anticoagulation due to bleeding risk. Rate controlled in the ER DVT prophylaxis: Mechanical. Hold Lovenox for paracentesis Attending Dr. Galarza Low-salt diet Hospital stay for optimization of volume, paracentesis. Specialist consult pending Time Spent With Patient Time: Total time managing care of this patient today ____ minutes. Quality Stroke Does the patient have a stroke diagnosis?: No VTE Prior VTE?: No VTE Risk Level:: Medical - moderate - high VTE Device Contraindication: N/A - Device Ordered VTE Drug Contraindication: Treatment Not Indicated
[2023-08-07 08:55] LABS: INTERNATIONAL NORM RATIO 1.2 (0.9-1.1); Prothrombin Time 14.1 SEC (11.1-13.3)
[2023-08-07] MEDS: Ferrous Sulfate 324 MG TABLET.DR PO (08:56)
[2023-08-07] MEDS: 0.9 % Sodium Chloride Flush 3 ML SYRINGE IVFLUSH ×3 (08:57→19:33)
[2023-08-07 08:59] LABS: Glucose, Whole Blood 204 mg/dL (60-115)
[2023-08-07 11:19] LABS: Glucose, Whole Blood 118 mg/dL (60-115)
[2023-08-07] MEDS: HYDROmorphone HCl 0.5 MG/0.5 ML SYRINGE IVPUSH (12:39)
--- NOTE | 2023-08-07 14:51 | P.CDIM_ITS ---
PROVIDER RESPONSE TEXT: To clarify, the appropriate diagnosis supported by the clinical indicators: Obesity Due to excess calories QUERY TEXT: PHYSICIAN'S DOCUMENTATION REQUEST Date of Query: 08/07/2023 09:05 AM EDT Patient Name: Miki Dawkins Admit Date: 08/05/2023 Dear Natasha Stapleton, A review of the medical record indicates additional documentation may be needed. Please review below and update the documentation accordingly. Clinical Indicators: Nursing notes: BMI 47.3 Extreme obesity class III 141kg If possible, please provide an associated diagnosis related to the abnormal BMI, such as: Obesity Due to excess calories Severe or Morbid Obesity With alveolar hypoventilation Severe or Morbid Obesity Without alveolar hypoventilation Other (explain)Clinically unable to determine (explain)Thank you, Lalitha Valencia, CCS, CDIS Use of terms such as suspected, likely, concern for, or probable (associated with a specific diagnosi s that is being evaluated, monitored, or treated as if it exists) are acceptable and can be coded in the inpatient se tting, when documented at the time of discharge. Please use your independent medical judgment in providing your response. THIS QUERY IS PART OF THE PERMANENT MEDICAL RECORD
--- NOTE | 2023-08-07 15:24 | HO.RADPN ---
RADIOLOGY Narrative Narrative: Paracentesis performed. 10 L yellow fluid removed. Full dictation to follow in PACS. No immediate complications Clifton MORENO Interventional Radiology
[2023-08-07] MEDS: Lidocaine HCl 1 % MPF 5 ML VIAL 10 ML SUBCUT (15:29)
[2023-08-07 15:57] VITALS: BP 142/63; PULSE 60; RESP 20; TEMP 36.7; O2SAT 95
[2023-08-07 16:19] LABS: Glucose, Whole Blood 150 mg/dL (60-115)
[2023-08-07] MEDS: Albumin Human 25 % 100 ML IV ×2 (18:01→22:02)
[2023-08-07] MEDS: Spironolactone 25 MG TABLET 100 MG PO (18:01)
[2023-08-07 19:16] VITALS: BP 136/60; PULSE 60; RESP 17; TEMP 36.3; O2SAT 99
[2023-08-07 20:14] LABS: Glucose, Whole Blood 175 mg/dL (60-115)
--- NOTE | 2023-08-07 22:46 | PC.NURSE ---
Pt refused 2000 IV push Lasix 80mg and 2100 Insulin Lispro. Pt stated he doesn't take Insulin. Dr. Miya Roberts is aware.
[2023-08-08 02:35] VITALS: BP 113/57; PULSE 61; RESP 18; TEMP 36.4; O2SAT 97
[2023-08-08 07:14] VITALS: BP 123/61; PULSE 63; RESP 18; TEMP 36.6; O2SAT 98
[2023-08-08 07:25] LABS: Glucose, Whole Blood 153 mg/dL (60-115)
[2023-08-08] MEDS: Spironolactone 25 MG TABLET 100 MG PO (08:04)
[2023-08-08] MEDS: Furosemide 100 MG/10 ML VIAL 80 MG IVPUSH (08:04)
[2023-08-08] MEDS: Ferrous Sulfate 324 MG TABLET.DR PO (08:04)
[2023-08-08] MEDS: 0.9 % Sodium Chloride Flush 3 ML SYRINGE IVFLUSH (08:05)
--- NOTE | 2023-08-08 08:58 | MHC.CM.PN ---
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 [facility] REFERRAL PLACED. PATIENT WILL FOLLOW UP OUTPATIENT FOR HIS PARACENTESIS
--- NOTE | 2023-08-08 09:03 | MHC.CM.PN ---
CM MET WITH PT ON 08/07/23, PT REPORTS HE LIVES IN THE [place] [id number] DETENTION HE SAYS HE DID NOT RESUME MMTP WITH [facility] AFTER HIS LAST DC BUT HOPES HE IS ABLE TO RETURN HE REPORTS THEY WERE SUPPOSED TO BE WORKING ON PT1 TRANSPORT FOR HIM HE REPORTS HE ALSO FEELS HE NEEDS HELP AT HOME, HE ASKED FOR [facility] AND WAS INFORMED THAT WOULD NEED TO GO THROUGH THE PCP PT IS AGREEABLE TO A [facility] REFERRAL TO DETERMINE IF HE WOULD QUALIFY FOR [facility] THROUGH THEM PT ALSO REPORTED BEING INTERESTED IN GOING TO [facility] FOR STR BUT TODAY STATES HE WOULD LIKE TO GO TO HOME WITH [facility] REFERRALS OUT TO BOTH PT EVAL PENDING PT REPORTS HE NOW HAS AN OUTPATIENT DOCTOR TO TREAT THE ASCITES AND CAN GET PARACENTESIS OUTPATIENT DCP TBD PENDING PT EVAL PT HAS EXPRESSED INTEREST IN BOTH HOME WITH [facility] AND STR AT [facility] (HE IS NOT WILLING TO GO TO [place]) TRANSPORT TBD PENDING DISPOSITION
[2023-08-08 09:21] VITALS: BP 123/61; PULSE 63; O2SAT 98
--- NOTE | 2023-08-08 10:02 | P.DS_ITS ---
DS: Providers Provider Date of Service: 08/08/23 Date of admission: 08/05/23 06:13 Primary care physician: TIFFANIE Connor DS: Diagnosis Discharge Diagnosis (1) Ascites: Status: Acute DS: Summary Hospital Course Hospital Course: This is a 53-year-old male with pertinent history of cirrhosis due to hep C, czy-yzdwhty-dxwstwcwl diabetes mellitus, paroxysmal atrial fibrillation not on anticoagulation who presents to the emergency department for evaluation of abdominal and scrotal swelling. Patient was recently admitted and discharged on 07/20 with decompensated cirrhosis with ascites after he underwent paracentesis during hospitalization. He was set up with outpatient paracentesis every 2 weeks. Patient states he missed his outpatient paracentesis appointment. Patient states the swelling has been progressive over the last 6-7 days. Significant progressive swelling noted over the abdomen and scrotum. No abdominal pain or fever or chills. About 11.3 L drained during his last hospitalization which was 4 weeks ago. No chest discomfort, palpitations, shortness of breath, changes in urinary or bowel habits. In the emergency department, significant abdomen and scrotal swelling seen. Patient admitted for parecentesis that was done 08/07/23 that yielded 10L yellow fluid. Patient remained hemodynamically stable and he was given 2 bags of albumin. No plans for patient to follow-up with Gastroenterology and he should likely be having paracentesis every 2 weeks. He is also going to follow-up with Gastroenterology regarding getting on a transplant list. Patient will continue all home medications Diabetes mellitus type 2. Continue medications Normocytic anemia. Hemoglobin above transfusion during hospitalization. Continue iron supplementation Thrombocytopenia. Due to cirrhosis Paroxysmal atrial fibrillation not on anticoagulation due to bleeding risk. Continue home medications Time Spent with Patient Time attestation: Total time managing care of this patient today ____ minutes. Discharge coordination time: Greater than 30 minutes Quality: Safe Use of Opioids Does Pt have an Active Cancer Diagnosis on the Problem List?: No Quality: Stroke Does the patient have a stroke diagnosis?: No Physical Exam Vital Signs: Vital Signs: Last Vital Signs Temp 97.9 F 08/08/23 07:14 Pulse 63 08/08/23 09:21 Resp 18 08/08/23 07:14 BP 123/61 08/08/23 09:21 Pulse Ox 98 08/08/23 09:21 O2 Del Method Room Air 08/08/23 07:14 BMI result Body Mass Index 47.3 Appearing in no acute distress head is normocephalic atraumatic eyes pupils are PERRLA sclera is anicteric mouth throat mucous membranes are intact and moist neck is supple no lymphadenopathy, no JVD noted lung sounds are clear to auscultation heart regular rate rhythm, clear S1, S2 positive bowel sounds, abdomen is soft, nontender, large abdomen neuro patient is alert x3, no focal deficits DS: Data Data Completed and Pending Completed studies during hospitalization [Text1]: Procedures Drainage of Peritoneal Cavity, Percutaneous Approach (07/07/23) Transfusion of Nonautologous Red Blood Cells into Peripheral Vein, Percutaneous Approach (05/12/23) Labs on day of discharge: Laboratory Results - last 24 hr 08/07/23 08/07/23 08/07/23 11:07 16:11 20:02 POC Glucose 118 H 150 H 175 H 08/08/23 07:19 POC Glucose 153 H Discharge Plan Discharge Anticipated Discharge Date/Time: 08/08/23 10:01 Patient Disposition: Home Health Service Discharge Diagnosis: Ascites scrotal edema Referrals: Melba Rockwell PA [Primary Care Provider] - 1 Week Discharge Medications: Continued ferrous sulfate [Iron (ferrous sulfate)] 325 mg (65 mg iron) tablet 325 mg PO DAILY Qty: 30 0RF nadolol 40 mg tablet 40 mg PO DAILY furosemide 20 mg tablet 80 mg PO BID@0800,1700 spironolactone 50 mg tablet 100 mg PO BID Discharge Orders: Discharge Order (Routine); Ordered 08/08/23 Ordered By: Natasha Stapleton Diet: Advance to usual diet Activity on Discharge: As tolerated Stand Alone Forms: Patient Portal Discharge page Care Plan Goals: Follow-up with flight data technician for future paracentesis Health Concerns: Ascites Scrotal edema Plan of Treatment: Follow-up with primary care provider as needed Take all medications as prescribed Assessment: See discharge summary
--- NOTE | 2023-08-08 12:16 | MHC.CM.PN ---
[facility] IS UNABLE TO OFFER SERVICES UNTIL MONDAY/MONDAY OF THIS WEEK. NO OTHER OFFERS RECEIVED. PATIENT ACCEPTS [facility]. AGENCY MADE AWARE.
== END 2023-08-08 12:20 | disposition home health service (06) ==
LOC: HO.ED 06:06 → HO.EDOVER 06:31 → HO.S3 12:34
PROVIDERS: Physician Assistant Surgical; Admitting Provider Student in an Organized Health Care Education/Training Program; Emergency Provider Emergency Medicine; PCP Physician Assistant; Visit Provider Nurse Practitioner Acute Care
DX: K74.69 Other cirrhosis of liver (principal); R18.8 Other ascites; D69.59 Other secondary thrombocytopenia; E11.9 Type 2 diabetes mellitus without complications; D64.9 Anemia, unspecified; E66.09 Other obesity due to excess calories; Z68.42 Body mass index [BMI] 45.0-49.9, adult; Z86.19 Personal history of other infectious and parasitic diseases; Z91.199 Patient's noncompliance with other medical treatment and regimen due to unspecified reason; Z79.899 Other long term (current) drug therapy
CPT/HCPCS: 36415; 49083; 71045; 80048; 80076; 82947; 83880; 84484; 85025; 85610; 85730; 93005; 97162; 99285; C1758; J1170; J1940; P9047

== ENCOUNTER → 2023-08-05 04:19 | Outpatient (BNV) | payer MEDICAID, SELFPAY | PROVIDERS: Emergency Provider Emergency Medicine; PCP Physician Assistant; Visit Provider Student in an Organized Health Care Education/Training Program | DX: R18.8 Other ascites (principal) | CPT/HCPCS: 99222; 99232; 99239; 99499 ==

== ENCOUNTER 2023-08-05 06:13 | Outpatient (BNV) | payer MEDICAID, SELFPAY | END 2023-08-07 | PROVIDERS: Admitting Provider Student in an Organized Health Care Education/Training Program; Emergency Provider Emergency Medicine; PCP Physician Assistant; Visit Provider Radiology Diagnostic Radiology | DX: R18.8 Other ascites (principal) | CPT/HCPCS: 49083 ==

== ENCOUNTER 2023-08-20 01:54 | Emergency (ER) | payer MEDICAID, SELFPAY ==
--- NOTE | 2023-08-20 02:08 | ED_ITS ---
HPI - CPR General Stated Complaint: Cardiac Arrest Time Seen by Provider: 08/20/23 01:58 Source: family, EMS and old records reviewed Mode of arrival: EMS Limitations: no limitations History of Present Illness HPI narrative: 53-year-old male with a pertinent history of liver cirrhosis due to hep C, non insulin-dependent diabetes, paroxysmal AFib not on AC, patient was complaining to his significant other with difficulty breathing the patient collapsed on EMS arrival patient was in asystole with no pulse, CPR was started by EMS and patient was given 7 rounds of epinephrine at the scene and during transportati on, came in with Jose Carlos's airway. On arrival to the ED patient continued to be an asystole with no pulse and apneic total time down was 1 hour with continuous and good effort CPR with no response, BS was 137, CPR was continued 1 mg of epinephrine was injected with 1 amp of bicarb was no response patient was pronounced at 02:00. Related Data Home Medications Medication Instructions Recorded Confirmed furosemide 20 mg tablet 80 mg PO BID@0800,1700 08/05/23 08/05/23 nadolol 40 mg tablet 40 mg PO DAILY 08/05/23 08/05/23 spironolactone 50 mg tablet 100 mg PO BID 08/05/23 08/05/23 Previous Rx's Medication Instructions Recorded ferrous sulfate 325 mg (65 mg 325 mg PO DAILY #30 tabs 05/18/23 iron) tablet (Iron (ferrous sulfate)) Allergies Allergy/AdvReac Type Severity Reaction Status Date / Time oxycodone Allergy Itching Verified 05/15/23 08:49 Review of Systems Review of Systems: Yes Unobtainable due to mental condition PMFSH Past Medical History Medical History Opioid use disorder Chronic anemia Decompensated hepatic cirrhosis Diabetes mellitus Cirrhosis Social History Social History Household Members: Spouse Housing: Apartment Housing Other:: fpc Do you presently have visiting nurse or other home services: No Alcohol intake: former Patient Tobacco Use Status: Never used Tobacco Substance Use Type: Heroin Advance Directives Date on File: 07/07/23 service: No Physical Exam Vital Signs: Vital Signs: VS: Asystole, apneic, pulseless. General: Pale color, obese, no sign of trauma , unresponsive, CPR in progress. HEENT: Pupil is 3 mm fixed not respond light, no facial trauma. Lung: Apneic, no breathing sounds. Abdomen: Distended, obese with ascites but no trauma. Back: No trauma, : Severe scrotal swelling Extremities: No deformity, no signs of trauma. Course Reevaluation(s) Reevaluation #1: 53-year-old male came in with cardiac arrest, case discussed with clinical laboratory medical director and case was declined case # [id number] by Howell. Rose his significant other and his daughter were notified. Time: 02:33 Medical Decision Making Differential Diagnosis Differential Diagnoses: The differential diagnosis associated with the presentation includes ( cardiac arrest, ACS, pulmonary embolism, fluid overload.) Admission/Observation Consideration of admission/observation: Escalation of care including admission/observation considered Discharge Plan Discharge Clinical Impression: Cardiac arrest Patient Disposition: Prescriptions: No Action ferrous sulfate [Iron (ferrous sulfate)] 325 mg (65 mg iron) tablet 325 mg PO DAILY Qty: 30 0RF nadolol 40 mg tablet 40 mg PO DAILY furosemide 20 mg tablet 80 mg PO BID@0800,1700 spironolactone 50 mg tablet 100 mg PO BID
--- NOTE | 2023-08-20 02:45 | PC.NURSE ---
pt denied by ME and [employer]. family notified and at bedside. personal belongings sent home with family. documentation on code sheet.
--- NOTE | 2023-08-20 03:56 | MHC.EDTECH ---
call out to Medical Examiners office at [phone] Information was shared and demographics were given Eusebio then asked to speak to DR. Singh Case was declined, Eusebio case # [id number] Nurse contacted [employer], Declined
[2023-08-21 07:07] LABS: Glucose, Whole Blood 137 mg/dL (60-115)
== END 2023-08-20 04:56 | disposition expired ==
PROVIDERS: Emergency Provider Emergency Medicine
DX: I46.9 Cardiac arrest, cause unspecified (principal); N50.89 Other specified disorders of the male genital organs; R14.0 Abdominal distension (gaseous); R18.8 Other ascites; K74.60 Unspecified cirrhosis of liver; B19.20 Unspecified viral hepatitis C without hepatic coma; E11.9 Type 2 diabetes mellitus without complications; I48.0 Paroxysmal atrial fibrillation; D64.9 Anemia, unspecified; K72.90 Hepatic failure, unspecified without coma; Z79.899 Other long term (current) drug therapy
CPT/HCPCS: 82947; 99281; 99284; J0171